=== PATIENT | female | born 1935 | race Caucasian/White ===

== ENCOUNTER → 2017-01-01 | Outpatient (CLI) | payer OTHER ==
--- NOTE | 2017-01-02 08:10 | MAMMOGRAPHY REPORT ---
BILATERAL DIGITAL SCREENING MAMMOGRAM WITH CAD: 01/01/2017 CLINICAL HISTORY: Routine screening. Patient has no complaints. TECHNIQUE: Bilateral CC and MLO views were obtained. Current study was also evaluated with a Compute r Aided Detection (CAD) system. COMPARISON: Comparison is made to exams dated: 12/23/2014 mammogram, 12/27/2015 mammogram, 12/21/2013 ma mmogram, 12/18/2012 mammogram, 12/18/2011 mammogram, and 12/14/2010 mammogram - [facility] BREAST COMPOSITION: The tissue of both breasts is heterogeneously dense, which may obscure small mas ses. FINDINGS: There is a stable intramammary lymph node in the upper outer posterior left breast. Mild v ascular calcifications bilaterally. No suspicious mass, architectural distortion or cluster of micro calcifications is seen. IMPRESSION: ACR BI-RADS CATEGORY 1: NEGATIVE There is no mammographic evidence of malignancy. A 1 year screening mammogram is recommended. The pa tient will receive written notification of the results. Approximately 10% of breast cancers are not detected with mammography. A negative mammographic report should not delay biopsy if a clinically suggestive mass is present. Briseyda Smith M.D. ay/:01/01/2017 15:11:00 Piped Pocket Machine Operator: Ladan NUÑEZR, M, [facility] letter sent: Normal 1/2 BI-RADS Code: ACR BI-RADS Category 1: Negative
== END | disposition home or self-care (01) ==
LOC: C.MAMM 09:46
PROVIDERS: ATTEND Family Medicine
DX: Z12.31 Encounter for screening mammogram for malignant neoplasm of breast (principal)

== ENCOUNTER → 2017-07-25 | Day surgery (SDC) | payer OTHER ==
[2017-06-27 11:27] VITALS: Ht 154.9 cm; Wt 55.5 kg
[~2017-07-25] VITALS: Ht 154.9 cm; Wt 55.5 kg
[~2017-07-25] MED LIST: 500ML BSS 0.3ML EPI 1:1000PF IRRIG ONE; ACETAMINOPHEN 325 MG TAB PO PRN; ADVIN50/60 INH; AMVISC PLUS 0.8ML SYRINGE INT OCU ONE; ASPCH81X PO; ATROPINE SULFATE 0.1 MG/ML 5ML SYR IV PRN; BSS FLUSH ONE; CRDCD/180 PO; ESCI1TAB10 PO; EpHEDrine SULFATE INJ 50 MG/ML AMP IV PRN; EpINEphrine INJ 1MG/ML AMP 1 MG/ML AMP ONE; FLUT50SP45 NAE; LACTATED RINGER'S 1000ML 500 ML IV SCH; LATA0.5S OPB; LEVO-14 PO; LIDOCAINE 3.5% OPH GEL PER APPLICATION CHARGE ONE; LIDOCAINE HCL 1% MPF 2 ML VIAL ONE; LISI-1116 PO; MIDAZOLAM HCL 1 MG/ML 2ML VIAL ONE; OCUCOAT 1 ML SOLN IO ONE; POVIDONE-IODINE OP SOLN 30 ML BTL ONE; PROPARACAINE 0.5% OP SOLN PER DROP CHARGE OPL SCH; RANI150T85 PO; ROSU20TA PO; TMPOPS15 OPB; TOBRAMYCIN/DEXAMETHASONE OPH OINT PER APPLN CHARGE ONE; VNTHFA/IN INH
[2017-07-25] MEDS: PHENYLEPHRINE HCL 2.5% OP SOLN PER DROP CHARGE OPL SCH ×2 (08:53→08:58)
[2017-07-25] MEDS: TROPICAMIDE 1% OP SOLN PER DROP CHARGE OPL SCH ×2 (08:54→08:59)
[2017-07-25] MEDS: CYCLOPENTOLATE HCL 1% OP SOLN PER DROP CHARGE OPL SCH ×2 (08:55→09:00)
[2017-07-25] MEDS: KETOROLAC 0.5% OP SOLN PER DROP CHARGE OPL SCH ×2 (08:56→09:01)
[2017-07-25] MEDS: GATIFLOXACIN OP SOLN PER DROP CHARGE OPL SCH ×2 (08:57→09:07)
--- NOTE | 2017-07-25 09:23 | History & Physical Bridge - SC ---
H&P Re-Evaluation Bridge Note: I have examined the patient, reviewed the History & Physical and in the interval since the performance of the History & Physical I have noted the following changes of clinical significance: No changes noted
--- NOTE | 2017-07-25 10:11 | [facility] Operative Report ---
Operative Report Date of Service Jul 25, 2017. Operative Report 1. PREOPERATIVE DIAGNOSIS: Cataract of the left eye. 2. POSTOPERATIVE DIAGNOSIS: Same. 3. PROCEDURE: Phacoemulsification with intraocular lens implantation of the left eye. SURGEON: Dr. Bud Davidson. ANESTHESIA: Topical Lidocaine gel, 1% Non- Preserved intracameral Lidocaine, and monitored intravenous sedation. INDICATIONS FOR THE PROCEDURE: The patient is a 81 - year-old female with a history of cataract of the left eye causing significant visual impairment. The details of the proposed procedure were explained to the patient who asked appropriate questions and following discussion of all risks, benefits and alternatives agreed to have the procedure done. 4. OPERATION AND FINDINGS: DESCRIPTION OF PROCEDURE: After informed consent was obtained, the patient was brought to the Operating Room at the [facility]. The patient was placed in a supine position and then the left eye was prepped and draped in the usual sterile fashion for intraocular surgery. A drop of topical Lidocaine gel was placed in the operative eye. A wire lid speculum was then placed in the fornices. A corneal paracentesis was then created temporally. The Non-Preserved Lidocaine was then instilled into the anterior chamber. The anterior chamber was then pressurized with viscoelastic. A 2.0 mm clear corneal incision was then created temporally. A cystotome was inserted into the anterior chamber and used to create a tear in the anterior lens capsule. This capsular tear was then used to create a small flap and the flap was dragged in a counterclockwise direction in order to create a continuous curvilinear capsulorrhexis. Hydrodissection was accomplished with balanced salt solution. Phacoemulsification of the lens nucleus was then performed in a standard [id number] technique. The phaco time was 18 seconds with an average power of 13 %. The remaining cortical material was removed using irrigation aspiration. The capsular bag was then filled with viscoelastic. A B[employer]ch [employer] Lomb MI60L +23.0 diopters lens was then loaded into the injector and injected into the capsular bag. The remaining viscoelastic was removed with the irrigation aspiration handpiece. The wound was hydrated and then checked and found to be watertight. The intraocular pressure was checked and found to be adequate. The wire lid speculum was removed and the patient's face was cleaned and dried. TobraDex ointment was placed in the inferior fornix. The patient was discharged to the Recovery Room having tolerated the procedure well. There were no complications. The patient will be seen tomorrow in the office for follow-up. I attest to the content of the Intraoperative Record and any orders documented therein. Any exceptions are noted below.
--- NOTE | 2017-07-25 10:12 | Discharge Instructions-SurgCtr ---
Discharge Instructions Date of Service Jul 25, 2017. Visit Reason for Visit: Cataract Left Eye Discharge Discharge Diagnosis / Problem: cataract Discharge Goals Goal(s): Improve function Activity Recommendations Activity Limitations: per Instructions/Follow-up section Anesthesia . Post Anesthesia Instructions: If you have had General Anesthesia or IV Sedation: * Do not drive today. * Resume driving when surgeon permits. * Do not make important decisions or sign legal documents today. * Call surgeon for: 1. Temperature elevations greater than 101 degrees F. 2. Uncontrollable pain. 3. Excessive bleeding. 4. Persistent nausea and vomiting. 5. Medication intolerance (nausea, vomiting or rash). * For nausea and vomiting use only clear liquids such as: tea, soda, bouillon until nausea subsides, then gradually increase diet as tolerated. * If you have any concerns or questions, call your surgeon's office. If physician is unavailable and it is an emergency, call 911 or go to the nearest emergency room. . Diet Recommendations Home Diet: resume previous diet Procedures Procedures Performed: Left Cataract Phacoemulsification With Intraocular Lens Implant Pending Studies Studies pending at discharge: no Medical Emergencies . Who to Call and When: Medical Emergencies: If at any time you feel your situation is an emergency, please call 911 immediately. . Non-Emergent Contact Non-Emergency issues call your: Pleating Supervisor . . "Provider Documentation" section prepared by Bud Davidson. .
[2017-07-25 10:13] VITALS: TEMP 36.4
--- NOTE | 2017-07-25 10:28 | Anesthesiology Progress Note ---
Anesthesia Post Op Note Date & Time Jul 25, 2017 at 10:28 Vital Signs Pain Intensity: 0 Vital Signs Past 12 Hours Date Time Temp Pulse Resp B/P (MAP) Pulse Ox O2 Delivery O2 Flow Rate FiO2 07/25/17 10:13 36.4 65 12 115/62 (79) 98 Room Air 07/25/17 08:47 36.7 64 20 145/69 (94) 98 Room Air Notes Mental Status: alert / awake / arousable, participated in evaluation Nausea / Vomiting: adequately controlled Pain: adequately controlled Airway Patency, RR, SpO2: stable & adequate BP & HR: stable & adequate Hydration State: stable & adequate Anesthetic Complications: no major complications apparent
[2017-07-25 10:33] VITALS: BP 112/68; PULSE 61; O2SAT 100
== END | disposition home or self-care (01) ==
LOC: X.SURG 07:52
PROVIDERS: ATTEND Ophthalmology
DX: H26.9 Unspecified cataract (principal); J45.909 Unspecified asthma, uncomplicated; I25.10 Atherosclerotic heart disease of native coronary artery without angina pectoris; E78.5 Hyperlipidemia, unspecified; K21.9 Gastro-esophageal reflux disease without esophagitis; I48.0 Paroxysmal atrial fibrillation; M26.622 Arthralgia of left temporomandibular joint; J44.9 Chronic obstructive pulmonary disease, unspecified; F33.42 Major depressive disorder, recurrent, in full remission; I10 Essential (primary) hypertension; Z79.899 Other long term (current) drug therapy; Z79.82 Long term (current) use of aspirin; Z87.11 Personal history of peptic ulcer disease

== ENCOUNTER → 2017-08-22 | Day surgery (SDC) | payer OTHER ==
[2017-08-06 11:01] VITALS: Ht 154.9 cm; Wt 55.5 kg
[~2017-08-22] VITALS: Ht 154.9 cm; Wt 55.5 kg
[~2017-08-22] MED LIST changes: +CITRIC ACID/SODIUM CITRATE 15 ML UDC ONE; +CITRIC ACID/SODIUM CITRATE 15 ML UDC PO SCH; -EpHEDrine SULFATE INJ 50 MG/ML AMP IV PRN; -PROPARACAINE 0.5% OP SOLN PER DROP CHARGE OPL SCH; +PROPARACAINE 0.5% OP SOLN PER DROP CHARGE OPR SCH; +RANITIDINE HCL 25 MG/ML INJ ONE; +RANITIDINE HCL 50 MG/100 ML D5W IV SCH
[2017-08-22] MEDS: PHENYLEPHRINE HCL 2.5% OP SOLN PER DROP CHARGE OPR SCH ×2 (08:38→08:43)
[2017-08-22] MEDS: TROPICAMIDE 1% OP SOLN PER DROP CHARGE OPR SCH ×2 (08:39→08:44)
[2017-08-22] MEDS: CYCLOPENTOLATE HCL 1% OP SOLN PER DROP CHARGE OPR SCH ×2 (08:40→08:45)
[2017-08-22] MEDS: KETOROLAC 0.5% OP SOLN PER DROP CHARGE OPR SCH ×2 (08:41→08:46)
[2017-08-22] MEDS: GATIFLOXACIN OP SOLN PER DROP CHARGE OPR SCH ×2 (08:42→08:52)
--- NOTE | 2017-08-22 09:03 | History & Physical Bridge - SC ---
H&P Re-Evaluation Bridge Note: I have examined the patient, reviewed the History & Physical and in the interval since the performance of the History & Physical I have noted the following changes of clinical significance: Diagnosis: Right Cataract Procedure: Right Cataract Removal with Lens Implant No changes noted
--- NOTE | 2017-08-22 09:48 | [facility] Operative Report ---
Operative Report Date of Service August 22, 2017. Operative Report 1. PREOPERATIVE DIAGNOSIS: Cataract of the right eye. 2. POSTOPERATIVE DIAGNOSIS: Same. 3. PROCEDURE: Phacoemulsification with intraocular lens implantation of the right eye. SURGEON: Dr. Bud Davidson. ANESTHESIA: Topical Lidocaine gel, 1% Non- Preserved intracameral Lidocaine, and monitored intravenous sedation. INDICATIONS FOR THE PROCEDURE: The patient is a 81 - year-old female with a history of cataract of the right eye causing significant visual impairment. The details of the proposed procedure were explained to the patient who asked appropriate questions and following discussion of all risks, benefits and alternatives agreed to have the procedure done. 4. OPERATION AND FINDINGS: DESCRIPTION OF PROCEDURE: After informed consent was obtained, the patient was brought to the Operating Room at the [facility]. The patient was placed in a supine position and then the right eye was prepped and draped in the usual sterile fashion for intraocular surgery. A drop of topical Lidocaine gel was placed in the operative eye. A wire lid speculum was then placed in the fornices. A corneal paracentesis was then created temporally. The Non-Preserved Lidocaine was then instilled into the anterior chamber. The anterior chamber was then pressurized with viscoelastic. A 2.0 mm clear corneal incision was then created temporally. A cystotome was inserted into the anterior chamber and used to create a tear in the anterior lens capsule. This capsular tear was then used to create a small flap and the flap was dragged in a counterclockwise direction in order to create a continuous curvilinear capsulorrhexis. Hydrodissection was accomplished with balanced salt solution. Phacoemulsification of the lens nucleus was then performed in a standard [id number] technique. The phaco time was 22 seconds with an average power of 14 %. The remaining cortical material was removed using irrigation aspiration. The capsular bag was then filled with viscoelastic. A Bausch & Lomb MI60L +25.0 diopters lens was then loaded into the injector and injected into the capsular bag. The remaining viscoelastic was removed with the irrigation aspiration handpiece. The wound was hydrated and then checked and found to be watertight. The intraocular pressure was checked and found to be adequate. The wire lid speculum was removed and the patient's face was cleaned and dried. TobraDex ointment was placed in the inferior fornix. The patient was discharged to the Recovery Room having tolerated the procedure well. There were no complications. The patient will be seen tomorrow in the office for follow-up. I attest to the content of the Intraoperative Record and any orders documented therein. Any exceptions are noted below.
--- NOTE | 2017-08-22 09:50 | Discharge Instructions-SurgCtr ---
Discharge Instructions Date of Service August 22, 2017. Visit Reason for Visit: Cataract Right Eye Discharge Discharge Diagnosis / Problem: cataract Discharge Goals Goal(s): Improve function Activity Recommendations Activity Limitations: per Instructions/Follow-up section Anesthesia . Post Anesthesia Instructions: If you have had General Anesthesia or IV Sedation: * Do not drive today. * Resume driving when surgeon permits. * Do not make important decisions or sign legal documents today. * Call surgeon for: 1. Temperature elevations greater than 101 degrees F. 2. Uncontrollable pain. 3. Excessive bleeding. 4. Persistent nausea and vomiting. 5. Medication intolerance (nausea, vomiting or rash). * For nausea and vomiting use only clear liquids such as: tea, soda, bouillon until nausea subsides, then gradually increase diet as tolerated. * If you have any concerns or questions, call your surgeon's office. If physician is unavailable and it is an emergency, call 911 or go to the nearest emergency room. . Diet Recommendations Home Diet: resume previous diet Procedures Procedures Performed: Right Cataract Phacoemulsification With Intraocular Lens Implant Pending Studies Studies pending at discharge: no Medical Emergencies . Who to Call and When: Medical Emergencies: If at any time you feel your situation is an emergency, please call 911 immediately. . Non-Emergent Contact Non-Emergency issues call your: Web Merchant . . "Provider Documentation" section prepared by Bud Davidson. .
[2017-08-22 10:23] VITALS: BP 96/58; PULSE 58; O2SAT 97
--- NOTE | 2017-08-22 10:29 | Anesthesia Progress Nt - [facility] ---
Anesthesia Post Op Note Date & Time August 22, 2017 at 10:29 Vital Signs Pain Intensity: 0 Vital Signs Past 12 Hours Date Time Temp Pulse Resp B/P (MAP) Pulse Ox O2 Delivery O2 Flow Rate FiO2 08/22/17 10:23 58 16 96/58 (71) 97 Room Air 08/22/17 09:52 36.5 56 16 97/60 (72) 98 Room Air 08/22/17 08:31 36.6 57 16 105/63 (77) 98 Room Air Notes Mental Status: alert / awake / arousable, participated in evaluation Pt Amnestic to Procedure: Yes Nausea / Vomiting: adequately controlled Pain: adequately controlled Airway Patency, RR, SpO2: stable & adequate BP & HR: stable & adequate Hydration State: stable & adequate Anesthetic Complications: no major complications apparent
== END | disposition home or self-care (01) ==
LOC: X.SURG 08:00
PROVIDERS: ATTEND Ophthalmology
DX: H26.9 Unspecified cataract (principal); I10 Essential (primary) hypertension; I48.91 Unspecified atrial fibrillation; K21.9 Gastro-esophageal reflux disease without esophagitis; J45.909 Unspecified asthma, uncomplicated; E78.5 Hyperlipidemia, unspecified; I25.10 Atherosclerotic heart disease of native coronary artery without angina pectoris

== ENCOUNTER 2025-03-21 07:45 | Inpatient (IN) ==
--- NOTE | 2025-03-21 08:07 | XRay Report ---
XR chest 1V portable HISTORY: 89 years-old Female Sepsis acute sepsis COMPARISON: None TECHNIQUE: AP view of the chest FINDINGS: Cardiac silhouette is mildly enlarged. No pneumothorax, pleural effusion or overt pulmonary edema. Mi ld linear subsegmental left basilar atelectasis. Calcified granuloma at the lateral left midlung. Bon es of the chest appear grossly intact. IMPRESSION: No acute process. ACT 112: Negative or not required by law. The above report was generated using voice recognition software. It may contain grammatical, syntax o r spelling errors. Electronically signed by: Néstor Seo M.D. 03/21/2025 8:05 AM
[2025-03-21 08:17] LABS: Hematocrit (blood only) 37.8 % (37.0-47.0); Hemoglobin 12.8 g/dL (12.0-16.0); Mean Corpuscular Hemoglobin 28.6 pg (25.0-34.0); Mean Corpuscular Volume 84.4 fL (80.0-100.0); Platelet Count 171 K/uL (130-400); RDW Standard Deviation 47.0 fL (36.4-46.3); Red Blood Count 4.48 M/uL (4.20-5.40); White Blood Count 13.39 K/ul (4.8-10.8)
[2025-03-21] MEDS: SODIUM CHLORIDE 0.9% 1,000 ML IV ONE ×3 (08:17→10:20)
[2025-03-21] MEDS: ACETAMINOPHEN 1,000 MG/100 ML VIAL IV STA (08:17)
[2025-03-21 08:39] LABS: Appearance Urine Clear (Clear); Bacteria Urine Automated 4+ (None Seen); Cast Urine Automated 0-2 /lpf (0-2); Epithelial Cell Urine Auto 0-2 /hpf (0-2); Glucose Urine UA Negative (Negative); WBC Urine Automated 0-5 /hpf (0-5)
[2025-03-21 08:44] LABS: INR 1.1 (0.9-1.1); Prothrombin Time 11.4 Seconds (9.0-12.0)
[2025-03-21] MEDS: OPTIRAY 320 100ml IV ONE (08:46)
[2025-03-21 08:47] LABS: Alanine Aminotransferase 10 U/L (7-52); Albumin Level 4.1 gm/dl (3.4-5.0); Alkaline Phosphatase 63 U/L (34-104); Anion Gap 10 (3-11); Bilirubin,Total 1.0 mg/dl (0.2-1.0); Blood Urea Nitrogen 27 mg/dl (6-23); Calcium 9.0 mg/dl (8.6-10.3); Carbon Dioxide 20 mmol/L (21-32); Chloride 104 mmol/L (98-107); Glucose 115 mg/dl (70-99(Fasting)); Lipase 14 U/L (11-82); Magnesium 1.8 mg/dl (1.7-2.4); Potassium 4.4 mmol/L (3.5-5.1); Sodium 134 mmol/L (136-145); Total Protein 7.8 gm/dl (6.0-8.3)
[2025-03-21] MEDS: cefTRIAXone SODIUM 2,000 MG/50 ML BAG IV STA (08:53)
[2025-03-21 09:02] LABS: Base Excess VBG -5.0 mEq/L; HCO3 VBG 19 mmol/L; Oxygen Saturation VBG < 60.0 %; PCO2 VBG 30 mmHg (38-50); PO2 VBG 35 mmHg; pH VBG 7.40 (7.36-7.41)
[2025-03-21 09:14] LABS: Chlamydia pneumoniae PCR Not Detected (NotDetected); Coronavirus 229E PCR Not Detected (NotDetected); Coronavirus CoV-2 (COVID19)PCR Not Detected (NotDetected); Coronavirus HKU1 PCR Not Detected (NotDetected); Coronavirus NL63 PCR Not Detected (NotDetected); Coronavirus OC43PCR Not Detected (NotDetected); Human Metapneumovirus PCR Not Detected (NotDetected); Parainfluenza Virus 1 PCR Not Detected (NotDetected); Parainfluenza Virus 2 PCR Not Detected (NotDetected); Parainfluenza Virus 3 PCR Not Detected (NotDetected); Parainfluenza Virus 4 PCR Not Detected (NotDetected); Respiratory Syncytial VirusPCR Not Detected (NotDetected); Rhinovirus/Enterovirus PCR Not Detected (NotDetected)
[2025-03-21] MEDS: OPTIRAY 320 125ml IV ONE (09:20)
--- NOTE | 2025-03-21 09:34 | CT Scan Report ---
CT head/brain wo con CLINICAL HISTORY: 89 years-old Female with ams. Acutely altered mental status TECHNIQUE: Multiple axial CT images of the head were obtained without contrast. A dose lowering tech nique was utilized adhering to the principles of ALARA. COMPARISON: None. FINDINGS: No acute intracranial hemorrhage, midline shift, intracranial mass, hydrocephalus, territorial ischem ia or abnormal extra-axial collection. Involutional changes with white matter hypodensities suggestiv e of chronic microvascular ischemic disease. Moderate ventriculomegaly, likely on an ex vacuo basis. Cerebral vascular calcifications. The calvarium is intact. Mild mucosal thickening of the ethmoid air cells. Mastoid air cells are arun ar. IMPRESSION: No acute intracranial abnormality. ACT 112: Negative or not required by law. The above report was generated using voice recognition software. It may contain grammatical, syntax o r spelling errors. Electronically signed by: Néstor Seo M.D. 03/21/2025 9:32 AM
--- NOTE | 2025-03-21 09:39 | CT Scan Report ---
ABDOMEN AND PELVIS CT WITH IV CONTRAST CT DOSE: 1495.71 mGy.cm HISTORY: Acute nausea and vomiting vomitting TECHNIQUE: Multiaxial CT images of the abdomen and pelvis were performed following the IV administrat ion of 94 cc of Optiray, A dose lowering technique was utilized adhering to the principles of ALARA. COMPARISON STUDY: CTA chest of same day FINDINGS: Chest CT dictated separately. Coronary artery calcifications are noted. Right basilar mucou s plugging with mild bibasilar atelectasis. No pneumatosis or pneumoperitoneum. Calcified granulomata of the spleen. Unremarkable adrenal glands, gallbladder and liver with patency of the hepatic and po rtal veins. There are a few scattered hypodense foci of the pancreas measuring up to 9 mm, likely sha e branch IPMN's. Subcentimeter hypodensities of the left kidney, likely cysts. No hydronephrosis. Unremarkable urinary bladder with mild wall thickening. Indeterminate cystic left adnexal lesion measuring 1.9 cm, favore d to be benign. Atherosclerosis of the aorta without aneurysm. Right inguinal chain lymph nodes measu re up to 9 mm with mild adjacent inflammatory stranding. Fluid-filled distal esophagus. Small hiatal hernia. There is no bowel obstruction or bowel wall thickening. There is mild to moderate colonic fec al retention. Scattered small bowel air-fluid levels with loops measuring up to 2.2 cm. Normal append ix. Degenerative changes of the spine. Lumbar levoscoliosis. No acute fracture identified. IMPRESSION: 1. No bowel obstruction or pneumoperitoneum. 2. Scattered small bowel air-fluid levels may represent an enteritis or ileus. 3. Small hiatal hernia. 4. Incidental findings as above. ACT 112: Negative or not required by law. The above report was generated using voice recognition software. It may contain grammatical, syntax o r spelling errors. Electronically signed by: Néstor Seo M.D. 03/21/2025 9:36 AM
[2025-03-21 09:41] LABS: Immature Granulocytes # (auto) 0.15 K/uL (0.01-0.20); Immature Granulocytes % (auto) 1.1 %; Ovalocytes 1+
--- NOTE | 2025-03-21 09:48 | CT Scan Report ---
CT angio chest PE protocol CT DOSE: 742.55 mGy.cm HISTORY: 89 years-old Female with ro PE. Acute shortness of breath with sepsis TECHNIQUE: Multiple CTA images of the chest were obtained after the intravenous administration of 80 ml Optiray. Coronal and sagittal MIPS were obtained from the axial data set and were submitted for Munch a Bunchiew. All measurements were obtained according to NASCET criteria. A dose lowering technique was ut ilized adhering to the principles of ALARA. COMPARISON: CT abdomen and pelvis of same day FINDINGS: CTA: The heart is upper limits of normal in size. No pericardial effusion. Mild coronary artery calcificat ions. Atherosclerosis of the thoracic aorta. There is at least 50% stenosis at the origin of the left subclavian artery secondary to atherosclerotic plaque. No pulmonary emboli are identified, however t he study is limited secondary to respiratory motion. CT CHEST: No thyroid nodule. Calcified mediastinal lymph nodes are suggestive of prior cranial disease. Noncalc ified lymph nodes within the mediastinum and isabel measure up to 9 mm. No pneumothorax or pleural effu karrie. Mild intralobular septal thickening. There are a few scattered calcified pulmonary granulomata. Linear areas of bibasilar consolidation noted in conjunction with bronchial wall thickening and mild right basilar predominant mucous plugging. 3 mm subpleural low suspicion solid nodule left upper lob e, image 104. CT abdomen the dictated separately. Multilevel degenerative changes of the spine and sh oulders. No acute fracture identified. IMPRESSION: 1. No pulmonary emboli identified. 2. Mild mucous plugging with bibasilar opacities suggestive of atelectasis. 3. Prior granulomatous disease. ACT 112: Negative or not required by law. The above report was generated using voice recognition software. It may contain grammatical, syntax o r spelling errors. Electronically signed by: Néstor Seo M.D. 03/21/2025 9:46 AM
[2025-03-21] MEDS ORDERED: VANCOMYCIN CONSULT ACTIVE PRN (10:06)
--- NOTE | 2025-03-21 10:17 | Emergency Department Note ---
History of Present Illness General Chief complaint: Fever Stated complaint: LETHARGIC, NAUSEA, VOMITING, FEVER Time Seen by Provider: 03/21/25 07:59 History of Present Illness Provider complaint: Altered mental status vomiting fever 89-year-old female presents emergency department from [facility] for fever altered mental status nausea vomiting. Patient has dementia and is unable to give history. Home Medications Medication Instructions Recorded Confirmed Type alendronate 70 mg tablet 70 mg PO WK 10/31/22 03/21/25 History diltiazem HCl 180 mg capsule,24 180 mg PO QAM 10/31/22 03/21/25 History hr,extended release dorzolamide 22.3 mg-timolol 6.8 1 drp ophthalmic (eye) BID 10/31/22 03/21/25 History mg/mL eye drops fluoxetine 40 mg capsule 60 mg PO QAM 10/31/22 03/21/25 History lisinopril 2.5 mg tablet 2.5 mg PO QAM 10/31/22 03/21/25 History rosuvastatin 20 mg tablet 20 mg PO QPM 10/31/22 03/21/25 History travoprost 0.004 % eye drops 1 drp ophthalmic (eye) BID 10/31/22 03/21/25 History acetaminophen 325 mg tablet 650 mg PO Q4H PRN pain/temp 03/21/25 03/21/25 History (Tylenol) fluocinonide 0.05 % topical cream 1 applic topical BID PRN skin 03/21/25 03/21/25 History issues latanoprostene bunod 0.024 % eye 1 drp OPB HS 03/21/25 03/21/25 History drops (Vyzulta) mineral oil-hydrophil petrolat 1 applic topical BID 03/21/25 03/21/25 History topical ointment mirtazapine 15 mg tablet 15 mg PO HS 03/21/25 03/21/25 History naproxen 250 mg tablet 250 mg PO BID PRN Inflammation 03/21/25 03/21/25 History silver chloride 1 ea topical DAILY 03/21/25 03/21/25 History Allergies Allergy/AdvReac Type Severity Reaction Status Date / Time No Known Drug Allergies Allergy Unknown . Verified 10/31/22 09:06 Past Med/Surg History Problem List (Updated 03/21/25 @ 12:21 by Background Daemon) Hypoxia (Acute) Acute UTI (Acute) Cellulitis (Acute) Sepsis (Acute) Medical History (Updated 03/21/25 @ 12:21 by Background Daemon) History of kidney stones Osteoporosis Osteoarthritis GERD (gastroesophageal reflux disease) Glaucoma Depression Poor historian HLD (hyperlipidemia) HTN (hypertension) Irregular heart rhythm Follows with Dr. Rasheed COPD (chronic obstructive pulmonary disease) Surgical History History of cataract surgery History of cystoscopy with stone extraction History of colonoscopy History of cardiac radiofrequency ablation Social History Smoking Status: Unknown if ever smoked Second Hand Exposure: Yes (hx); Do You Dip or Chew Tobacco: No; Hx Alcohol Use: No Hx Substance Use: No Preferred Language: Mexican Communication Ability: Effective Conductor Sleeping Car Required: No Beliefs That Will Affect Care: None Current Living Situation: Alone Feels Safe at Home: Yes Assistive Devices: Cane and Glasses Physical Exam Vital Signs Vital Signs - 24 hr 03/21/25 07:54 03/21/25 07:55 03/21/25 08:45 Temperature 39.2 C H Temperature Source Oral Pulse Rate 125 H Pulse Rate from SpO2 Sensor Pulse Rhythm Irregular Respiratory Rate 24 Respiratory Effort / Characteristics Non-Labored Spontaneous Respiratory Depth Shallow Blood Pressure 119/82 107/58 L Blood Pressure Mean 94 67 Pulse Oximetry 91 Oxygen Delivery Method Room Air Room Air Oxygen Flow Rate Sepsis Recent Fever Within 48 Hours Yes Sepsis New/Unexplained Change in Mental Status Yes Sepsis Action Taken by Nursing Physician Notified 03/21/25 08:51 03/21/25 08:52 03/21/25 09:00 Temperature Temperature Source Pulse Rate 121 H 121 H Pulse Rate from SpO2 Sensor 117 H Pulse Rhythm Respiratory Rate 26 H Respiratory Effort / Characteristics Respiratory Depth Blood Pressure 91/54 L Blood Pressure Mean 70 Pulse Oximetry 97 Oxygen Delivery Method Nasal Cannula Oxygen Flow Rate 2 Sepsis Recent Fever Within 48 Hours Sepsis New/Unexplained Change in Mental Status Sepsis Action Taken by Nursing 03/21/25 09:00 03/21/25 09:00 03/21/25 09:00 Temperature Temperature Source Pulse Rate Pulse Rate from SpO2 Sensor Pulse Rhythm Respiratory Rate Respiratory Effort / Characteristics Respiratory Depth Blood Pressure 91/54 L 91/54 L 91/54 L Blood Pressure Mean 70 70 70 Pulse Oximetry Oxygen Delivery Method Oxygen Flow Rate Sepsis Recent Fever Within 48 Hours Sepsis New/Unexplained Change in Mental Status Sepsis Action Taken by Nursing 03/21/25 09:00 03/21/25 09:00 03/21/25 09:18 Temperature Temperature Source Pulse Rate 117 H 113 H Pulse Rate from SpO2 Sensor 119 H 117 H Pulse Rhythm Respiratory Rate 26 H 24 Respiratory Effort / Characteristics Respiratory Depth Blood Pressure 91/54 L Blood Pressure Mean 70 Pulse Oximetry 98 96 Oxygen Delivery Method Oxygen Flow Rate Sepsis Recent Fever Within 48 Hours Sepsis New/Unexplained Change in Mental Status Sepsis Action Taken by Nursing 03/21/25 09:19 03/21/25 09:19 03/21/25 09:19 Temperature Temperature Source Pulse Rate Pulse Rate from SpO2 Sensor Pulse Rhythm Respiratory Rate Respiratory Effort / Characteristics Respiratory Depth Blood Pressure 78/54 L 78/54 L 74/56 L Blood Pressure Mean 61 61 64 Pulse Oximetry Oxygen Delivery Method Oxygen Flow Rate Sepsis Recent Fever Within 48 Hours Sepsis New/Unexplained Change in Mental Status Sepsis Action Taken by Nursing 03/21/25 09:21 03/21/25 09:21 03/21/25 09:21 Temperature Temperature Source Pulse Rate 119 H Pulse Rate from SpO2 Sensor 121 H Pulse Rhythm Respiratory Rate 19 Respiratory Effort / Characteristics Respiratory Depth Blood Pressure 74/52 L 74/52 L Blood Pressure Mean 55 55 Pulse Oximetry 96 Oxygen Delivery Method Oxygen Flow Rate Sepsis Recent Fever Within 48 Hours Sepsis New/Unexplained Change in Mental Status Sepsis Action Taken by Nursing 03/21/25 09:21 03/21/25 09:30 03/21/25 09:30 Temperature 37.2 C Temperature Source Oral Pulse Rate Pulse Rate from SpO2 Sensor Pulse Rhythm Respiratory Rate Respiratory Effort / Characteristics Respiratory Depth Blood Pressure 74/52 L 89/57 L Blood Pressure Mean 55 61 Pulse Oximetry Oxygen Delivery Method Oxygen Flow Rate Sepsis Recent Fever Within 48 Hours Sepsis New/Unexplained Change in Mental Status Sepsis Action Taken by Nursing 03/21/25 09:30 03/21/25 09:30 03/21/25 09:30 Temperature Temperature Source Pulse Rate Pulse Rate from SpO2 Sensor Pulse Rhythm Respiratory Rate Respiratory Effort / Characteristics Respiratory Depth Blood Pressure 89/57 L 89/57 L 89/57 L Blood Pressure Mean 61 61 61 Pulse Oximetry Oxygen Delivery Method Oxygen Flow Rate Sepsis Recent Fever Within 48 Hours Sepsis New/Unexplained Change in Mental Status Sepsis Action Taken by Nursing 03/21/25 09:30 03/21/25 09:30 03/21/25 09:42 Temperature Temperature Source Pulse Rate 114 H 118 H Pulse Rate from SpO2 Sensor 118 H 118 H Pulse Rhythm Respiratory Rate 27 H 22 Respiratory Effort / Characteristics Respiratory Depth Blood Pressure 89/57 L Blood Pressure Mean 61 Pulse Oximetry 97 97 Oxygen Delivery Method Oxygen Flow Rate Sepsis Recent Fever Within 48 Hours Sepsis New/Unexplained Change in Mental Status Sepsis Action Taken by Nursing 03/21/25 09:43 03/21/25 09:43 03/21/25 09:43 Temperature Temperature Source Pulse Rate Pulse Rate from SpO2 Sensor Pulse Rhythm Respiratory Rate Respiratory Effort / Characteristics Respiratory Depth Blood Pressure 93/52 L 93/52 L 93/52 L Blood Pressure Mean 67 67 67 Pulse Oximetry Oxygen Delivery Method Oxygen Flow Rate Sepsis Recent Fever Within 48 Hours Sepsis New/Unexplained Change in Mental Status Sepsis Action Taken by Nursing 03/21/25 09:43 03/21/25 09:45 03/21/25 09:46 Temperature Temperature Source Pulse Rate 117 H Pulse Rate from SpO2 Sensor 117 H Pulse Rhythm Respiratory Rate 23 Respiratory Effort / Characteristics Respiratory Depth Blood Pressure 93/52 L 87/57 L Blood Pressure Mean 67 64 Pulse Oximetry 97 Oxygen Delivery Method Oxygen Flow Rate Sepsis Recent Fever Within 48 Hours Sepsis New/Unexplained Change in Mental Status Sepsis Action Taken by Nursing 03/21/25 09:46 03/21/25 09:46 03/21/25 09:46 Temperature Temperature Source Pulse Rate Pulse Rate from SpO2 Sensor Pulse Rhythm Respiratory Rate Respiratory Effort / Characteristics Respiratory Depth Blood Pressure 87/57 L 87/57 L 87/57 L Blood Pressure Mean 64 64 64 Pulse Oximetry Oxygen Delivery Method Oxygen Flow Rate Sepsis Recent Fever Within 48 Hours Sepsis New/Unexplained Change in Mental Status Sepsis Action Taken by Nursing 03/21/25 09:46 03/21/25 09:51 03/21/25 09:54 Temperature Temperature Source Pulse Rate 120 H 118 H Pulse Rate from SpO2 Sensor 120 H 116 H Pulse Rhythm Respiratory Rate 22 21 Respiratory Effort / Characteristics Respiratory Depth Blood Pressure 87/57 L Blood Pressure Mean 64 Pulse Oximetry 97 97 Oxygen Delivery Method Oxygen Flow Rate Sepsis Recent Fever Within 48 Hours Sepsis New/Unexplained Change in Mental Status Sepsis Action Taken by Nursing 03/21/25 09:56 03/21/25 09:57 03/21/25 09:57 Temperature Temperature Source Pulse Rate 108 H Pulse Rate from SpO2 Sensor 110 H Pulse Rhythm Respiratory Rate 24 Respiratory Effort / Characteristics Respiratory Depth Blood Pressure 80/54 L 81/49 L Blood Pressure Mean 59 62 Pulse Oximetry 97 Oxygen Delivery Method Oxygen Flow Rate Sepsis Recent Fever Within 48 Hours Sepsis New/Unexplained Change in Mental Status Sepsis Action Taken by Nursing 03/21/25 09:57 03/21/25 09:57 03/21/25 10:00 Temperature Temperature Source Pulse Rate 116 H Pulse Rate from SpO2 Sensor 113 H Pulse Rhythm Respiratory Rate 25 H Respiratory Effort / Characteristics Respiratory Depth Blood Pressure 81/49 L 81/49 L Blood Pressure Mean 62 62 Pulse Oximetry 97 Oxygen Delivery Method Nasal Cannula Oxygen Flow Rate 2 Sepsis Recent Fever Within 48 Hours Sepsis New/Unexplained Change in Mental Status Sepsis Action Taken by Nursing 03/21/25 10:00 03/21/25 10:00 03/21/25 10:00 Temperature Temperature Source Pulse Rate Pulse Rate from SpO2 Sensor Pulse Rhythm Respiratory Rate Respiratory Effort / Characteristics Respiratory Depth Blood Pressure 85/49 L 85/49 L 85/49 L Blood Pressure Mean 60 60 60 Pulse Oximetry Oxygen Delivery Method Oxygen Flow Rate Sepsis Recent Fever Within 48 Hours Sepsis New/Unexplained Change in Mental Status Sepsis Action Taken by Nursing 03/21/25 10:00 03/21/25 10:00 03/21/25 10:12 Temperature Temperature Source Pulse Rate 124 H Pulse Rate from SpO2 Sensor 117 H Pulse Rhythm Respiratory Rate 24 Respiratory Effort / Characteristics Respiratory Depth Blood Pressure 85/49 L 85/49 L Blood Pressure Mean 60 60 Pulse Oximetry 97 Oxygen Delivery Method Oxygen Flow Rate Sepsis Recent Fever Within 48 Hours Sepsis New/Unexplained Change in Mental Status Sepsis Action Taken by Nursing 03/21/25 10:15 03/21/25 10:15 03/21/25 10:15 Temperature Temperature Source Pulse Rate Pulse Rate from SpO2 Sensor Pulse Rhythm Respiratory Rate Respiratory Effort / Characteristics Respiratory Depth Blood Pressure 92/57 L 92/57 L 92/57 L Blood Pressure Mean 62 62 62 Pulse Oximetry Oxygen Delivery Method Oxygen Flow Rate Sepsis Recent Fever Within 48 Hours Sepsis New/Unexplained Change in Mental Status Sepsis Action Taken by Nursing 03/21/25 10:15 03/21/25 10:15 03/21/25 10:15 Temperature Temperature Source Pulse Rate 107 H Pulse Rate from SpO2 Sensor 122 H Pulse Rhythm Respiratory Rate 23 Respiratory Effort / Characteristics Respiratory Depth Blood Pressure 92/57 L 92/57 L Blood Pressure Mean 62 62 Pulse Oximetry 97 Oxygen Delivery Method Oxygen Flow Rate Sepsis Recent Fever Within 48 Hours Sepsis New/Unexplained Change in Mental Status Sepsis Action Taken by Nursing 03/21/25 10:21 03/21/25 10:21 03/21/25 10:21 Temperature Temperature Source Pulse Rate 117 H Pulse Rate from SpO2 Sensor 113 H Pulse Rhythm Respiratory Rate 24 Respiratory Effort / Characteristics Respiratory Depth Blood Pressure 93/52 L 93/52 L Blood Pressure Mean 63 63 Pulse Oximetry 97 Oxygen Delivery Method Oxygen Flow Rate Sepsis Recent Fever Within 48 Hours Sepsis New/Unexplained Change in Mental Status Sepsis Action Taken by Nursing 03/21/25 10:21 03/21/25 10:21 03/21/25 10:21 Temperature Temperature Source Pulse Rate Pulse Rate from SpO2 Sensor Pulse Rhythm Respiratory Rate Respiratory Effort / Characteristics Respiratory Depth Blood Pressure 93/52 L 93/52 L 93/52 L Blood Pressure Mean 63 63 63 Pulse Oximetry Oxygen Delivery Method Oxygen Flow Rate Sepsis Recent Fever Within 48 Hours Sepsis New/Unexplained Change in Mental Status Sepsis Action Taken by Nursing 03/21/25 10:30 03/21/25 10:30 03/21/25 10:30 Temperature Temperature Source Pulse Rate Pulse Rate from SpO2 Sensor Pulse Rhythm Respiratory Rate Respiratory Effort / Characteristics Respiratory Depth Blood Pressure 105/48 L 105/48 L 105/48 L Blood Pressure Mean 68 68 68 Pulse Oximetry Oxygen Delivery Method Oxygen Flow Rate Sepsis Recent Fever Within 48 Hours Sepsis New/Unexplained Change in Mental Status Sepsis Action Taken by Nursing 03/21/25 10:30 03/21/25 10:30 03/21/25 10:30 Temperature Temperature Source Pulse Rate 115 H Pulse Rate from SpO2 Sensor 111 H Pulse Rhythm Respiratory Rate 20 Respiratory Effort / Characteristics Respiratory Depth Blood Pressure 105/48 L 105/48 L Blood Pressure Mean 68 68 Pulse Oximetry 98 Oxygen Delivery Method Nasal Cannula Oxygen Flow Rate 2 Sepsis Recent Fever Within 48 Hours Sepsis New/Unexplained Change in Mental Status Sepsis Action Taken by Nursing 03/21/25 10:42 03/21/25 10:45 03/21/25 10:45 Temperature Temperature Source Pulse Rate 108 H Pulse Rate from SpO2 Sensor 107 H Pulse Rhythm Respiratory Rate 23 Respiratory Effort / Characteristics Respiratory Depth Blood Pressure 94/61 L 94/61 L Blood Pressure Mean 64 64 Pulse Oximetry 95 Oxygen Delivery Method Oxygen Flow Rate Sepsis Recent Fever Within 48 Hours Sepsis New/Unexplained Change in Mental Status Sepsis Action Taken by Nursing 03/21/25 10:45 03/21/25 10:45 03/21/25 10:45 Temperature Temperature Source Pulse Rate Pulse Rate from SpO2 Sensor Pulse Rhythm Respiratory Rate Respiratory Effort / Characteristics Respiratory Depth Blood Pressure 94/61 L 94/61 L 94/61 L Blood Pressure Mean 64 64 64 Pulse Oximetry Oxygen Delivery Method Oxygen Flow Rate Sepsis Recent Fever Within 48 Hours Sepsis New/Unexplained Change in Mental Status Sepsis Action Taken by Nursing 03/21/25 10:45 03/21/25 10:51 03/21/25 11:00 Temperature Temperature Source Pulse Rate 116 H 117 H 122 H Pulse Rate from SpO2 Sensor 110 H 111 H 113 H Pulse Rhythm Respiratory Rate 20 21 23 Respiratory Effort / Characteristics Respiratory Depth Blood Pressure Blood Pressure Mean Pulse Oximetry 94 98 97 Oxygen Delivery Method Oxygen Flow Rate Sepsis Recent Fever Within 48 Hours Sepsis New/Unexplained Change in Mental Status Sepsis Action Taken by Nursing 03/21/25 11:00 03/21/25 11:00 03/21/25 11:00 Temperature Temperature Source Pulse Rate Pulse Rate from SpO2 Sensor Pulse Rhythm Respiratory Rate Respiratory Effort / Characteristics Respiratory Depth Blood Pressure 105/70 105/70 105/70 Blood Pressure Mean 87 87 87 Pulse Oximetry Oxygen Delivery Method Oxygen Flow Rate Sepsis Recent Fever Within 48 Hours Sepsis New/Unexplained Change in Mental Status Sepsis Action Taken by Nursing 03/21/25 11:00 03/21/25 11:00 03/21/25 11:12 Temperature Temperature Source Pulse Rate 109 H Pulse Rate from SpO2 Sensor 117 H Pulse Rhythm Respiratory Rate 24 Respiratory Effort / Characteristics Respiratory Depth Blood Pressure 105/70 105/70 Blood Pressure Mean 87 87 Pulse Oximetry 96 Oxygen Delivery Method Oxygen Flow Rate Sepsis Recent Fever Within 48 Hours Sepsis New/Unexplained Change in Mental Status Sepsis Action Taken by Nursing 03/21/25 11:15 03/21/25 11:15 03/21/25 11:15 Temperature Temperature Source Pulse Rate Pulse Rate from SpO2 Sensor Pulse Rhythm Respiratory Rate Respiratory Effort / Characteristics Respiratory Depth Blood Pressure 96/77 L 96/77 L 96/77 L Blood Pressure Mean 80 80 80 Pulse Oximetry Oxygen Delivery Method Oxygen Flow Rate Sepsis Recent Fever Within 48 Hours Sepsis New/Unexplained Change in Mental Status Sepsis Action Taken by Nursing 03/21/25 11:15 03/21/25 11:15 03/21/25 11:15 Temperature Temperature Source Pulse Rate 114 H Pulse Rate from SpO2 Sensor 113 H Pulse Rhythm Respiratory Rate 26 H Respiratory Effort / Characteristics Respiratory Depth Blood Pressure 96/77 L 96/77 L Blood Pressure Mean 80 80 Pulse Oximetry 96 Oxygen Delivery Method Oxygen Flow Rate Sepsis Recent Fever Within 48 Hours Sepsis New/Unexplained Change in Mental Status Sepsis Action Taken by Nursing 03/21/25 11:21 Temperature Temperature Source Pulse Rate 117 H Pulse Rate from SpO2 Sensor 115 H Pulse Rhythm Respiratory Rate 19 Respiratory Effort / Characteristics Respiratory Depth Blood Pressure Blood Pressure Mean Pulse Oximetry 98 Oxygen Delivery Method Oxygen Flow Rate Sepsis Recent Fever Within 48 Hours Sepsis New/Unexplained Change in Mental Status Sepsis Action Taken by Nursing Physical Exam NECK: Normal range of motion. Neck supple. No JVD present. CV: Normal rate, irregular rhythm, normal heart sounds and intact distal pulses. Palpable radial pulses bue. PULM/CHEST: Effort normal and breath sounds normal. No respiratory distress. No stridor. no wheezes. no rales. ABD: The abdomen is soft. There is no tenderness. MUSC: Right lower extremity erythematous and swollen. Course Course 0759: The patient was evaluated in room B12B. A complete history and physical exam was performed Cardiac monitoring: An order was placed for continuous cardiac monitoring. The monitor shows a rate of 120 with sinus tachycardia rhythm interpreted by tn Sepsis protocols initiated. Patient hypoxic as placed on supplemental oxygen via nasal cannula. 0920: Patient hypotensive after CT scan. Second liter of IV fluids ordered for total of 30 cc/kg bolus. Rocephin ordered for patient's UTI. Received a call from lab that they are concerned for possible anaplasmosis based off patient's blood smear. Does not add up with the patient's history as she is demented and prison did not go outside and most likely has very little exposure to ticks however tickborne panel was added and IV doxycycline was also ordered for the patient. 1019: Patient remains hypotensive. Patient will be admitted to the [facility] team. Vancomycin also ordered for the patient's cellulitis. Spoke with Dr. Graff for ICU made him aware of the patient. Will put the patient in for third liter of normal saline and plan for possible norepinephrine infusion. Spoke with the patient's family son and [id number] [phone]. They confirmed that the patient is DNR/DNI but the patient would be okay with receiving IV pressors antibiotics and central venous access if necessary. 1100: Patient's blood pressure is 105/48 after beginning third liter of normal saline. Holding off on Levophed for now. Discussed with Dr. Reyes who came down to evaluate the patient and states she thinks she will place the patient in PCU. Administered Medications Heparin Sodium (Porcine) (Heparin Sod 5,000 Unit/0.5 Ml Vial) 5,000 units SQ Q8 FARHANA Stop: 04/20/25 13:59 Last Admin: 03/21/25 14:06 Dose: 5,000 units Documented By: valdez Sodium Chloride (Nss) 1,000 mls @ 125 mls/hr IV .Q8H FARHANA Stop: 03/21/25 18:59 Last Admin: 03/21/25 11:09 Dose: 125 mls/hr Documented By: valdez Discontinued Medications Sodium Chloride (Nss) 1,000 mls @ 999 mls/hr IV .Q1H1M ONE Stop: 03/21/25 08:56 Last Infusion: 03/21/25 11:10 Dose: Infused Documented By: tha Admin: 03/21/25 08:17 Dose: 999 mls/hr Documented By: valdez Acetaminophen (Ofirmev) 1,000 mg in 100 mls @ 400 mls/hr IV NOW STA Stop: 03/21/25 08:10 Last Infusion: 03/21/25 11:10 Dose: Infused Documented By: tha Admin: 03/21/25 08:17 Dose: 400 mls/hr Documented By: valdez Ceftriaxone Sodium (Rocephin) 2,000 mg in 50 mls @ 100 mls/hr IV NOW STA Stop: 03/21/25 09:09 Last Infusion: 03/21/25 11:10 Dose: Infused Documented By: tha Admin: 03/21/25 08:53 Dose: 100 mls/hr Documented By: valdez Sodium Chloride (Nss) 1,000 mls @ 999 mls/hr IV .Q1H1M ONE Stop: 03/21/25 10:20 Last Infusion: 03/21/25 11:35 Dose: Infused Documented By: tha Admin: 03/21/25 10:19 Dose: 999 mls/hr Documented By: valdez Infusion: 03/21/25 10:19 Dose: Infused Documented By: valdez Admin: 03/21/25 09:22 Dose: 999 mls/hr Documented By: valdez Doxycycline Hyclate (Vibramycin) 100 mg in 100 mls @ 50 mls/hr IV NOW STA Stop: 03/21/25 11:31 Last Infusion: 03/21/25 11:35 Dose: Infused Documented By: tha Admin: 03/21/25 09:41 Dose: 50 mls/hr Documented By: valdez Vancomycin HCl 1,250 mg/ (Sodium Chloride) 525 mls @ 200 mls/hr IV NOW ONE Stop: 03/21/25 12:43 Last Infusion: 03/21/25 13:31 Dose: Infused Documented By: Admin: 03/21/25 10:27 Dose: 200 mls/hr Documented By: valdez Norepinephrine Bitartrate (Levophed/D5w) 4 mg in 250 mls @ 11.831 mls/hr IV .Q21H8M FARHANA; Protocol Stop: 04/20/25 10:14 Last Admin: 03/21/25 11:34 Dose: Not Given Documented By: tha Sodium Chloride (Nss) 1,000 mls @ 999 mls/hr IV .Q1H1M ONE Stop: 03/21/25 11:11 Last Infusion: 03/21/25 11:36 Dose: Infused Documented By: tha Admin: 03/21/25 10:20 Dose: 999 mls/hr Documented By: valdez Ioversol (Optiray 320 100ml) 94 ml IV ONCE ONE Stop: 03/21/25 08:47 Last Admin: 03/21/25 08:46 Dose: 94 ml Documented By: EMILY Ioversol (Optiray 320 125ml) 80 ml IV ONCE ONE Stop: 03/21/25 09:20 Last Admin: 03/21/25 09:20 Dose: 80 ml Documented By: EMILY Levalbuterol HCl (Levalbuterol Hcl 0.63 Mg/3 Ml Neb) 0.63 mg NEB NOW STA; Protocol Stop: 03/21/25 11:19 Last Admin: 03/21/25 13:12 Dose: 0.63 mg Documented By: DINA Miscellaneous (Stat Iv Infusion Titration Per Protocol) 1 each N/A NOW STA Stop: 03/21/25 10:12 Last Admin: 03/21/25 11:34 Dose: Not Given Documented By: tha Critical Care Time Critical Care Time: Yes Total Critical Care Time: 39 I have personally spent greater than 39 minutes of critical care time in the direct management of this patient. This includes bedside care, interpretation of diagnostic studies, and testing, discussion with consultants, patient, and family members, and other required patient management activities. This 39 minutes is in excess of all separately billable procedures. Medical Decision Making Laboratory Data Attestation: I reviewed the patient's lab results. 03/21/25 08:00 03/21/25 08:00 Lab Results 03/21/25 03/21/25 03/21/25 Range/Units 08:00 08:01 08:16 WBC 13.39 H (4.8-10.8) K/ul RBC 4.48 (4.20-5.40) M/uL Hgb 12.8 (12.0-16.0) g/dL POC Hgb 13.3 (12.0-16.0) g/dl Hct 37.8 (37.0-47.0) % POC Hct 39 (37-47) % MCV 84.4 (80.0-100.0) fL MCH 28.6 (25.0-34.0) pg MCHC 33.9 (32.0-36.0) g/dL RDW Std Deviation 47.0 H (36.4-46.3) fL RDW Coeff of Lorenzo 15.3 H (11.5-14.5) % Plt Count 171 (130-400) K/uL MPV 9.9 (9.4-12.4) fL Immature Gran % (Auto) 1.1 % Neut % (Auto) 90.7 % Lymph % (Auto) 3.7 % Zavala % (Auto) 4.4 % Eos % (Auto) 0.0 % Baso % (Auto) 0.1 % Neut # (Auto) 12.14 H (1.40-6.50) K/uL Lymph # (Auto) 0.50 L (1.20-3.40) K/uL Zavala # (Auto) 0.59 (0.11-0.59) K/uL Eos # (Auto) 0.00 (0.00-0.50) K/uL Baso # (Auto) 0.01 (0.00-0.20) K/uL Immature Gran # (Auto) 0.15 (0.01-0.20) K/uL Ovalocytes 1+ PT 11.4 (9.0-12.0) Seconds INR 1.1 (0.9-1.1) VBG pH (7.36-7.41) VBG pCO2 (38-50) mmHg VBG pO2 mmHg VBG HCO3 mmol/L VBG O2 Saturation % VBG Base Excess mEq/L POC Sodium 137 (135-144) mmol/L Sodium 134 L (136-145) mmol/L POC Potassium 4.3 (3.3-5.0) mmol/L Potassium 4.4 (3.5-5.1) mmol/L POC Chloride 104 (101-112) mmol/L Chloride 104 (98-107) mmol/L Carbon Dioxide 20 L (21-32) mmol/L POC Total CO2 17 L (24-31) mmol/L Anion Gap 10 (3-11) POC Anion Gap 21.0 (16-25) mmol/L POC BUN 26 H (7-18) mg/dl BUN 27 H (6-23) mg/dl Creatinine 1.18 (0.6-1.2) mg/dl POC Creatinine 1.3 (0.6-1.3) mg/dl Est Cr Clr Drug Dosing Not Reportable eGFR 44.15 BUN/Creatinine Ratio 22.9 H (10-20) Glucose 115 H (70-99(Fasting)) mg/dl POC Glucose (other) 123 H (70-99) mg/dl Lactate 2.6 H* (0.4-2.0) mmol/L Calcium 9.0 (8.6-10.3) mg/dl POC Ioniz Calcium Dru 1.12 (1.12-1.32) mmol/l Magnesium 1.8 (1.7-2.4) mg/dl Total Bilirubin 1.0 (0.2-1.0) mg/dl Direct Bilirubin TNP AST 20 (13-39) U/L ALT 10 (7-52) U/L Alkaline Phosphatase 63 (34-104) U/L Troponin I High Sens 11.8 (0-14) pg/ml Total Protein 7.8 (6.0-8.3) gm/dl Albumin 4.1 (3.4-5.0) gm/dl Lipase 14 (11-82) U/L Procalcitonin 2.52 H (0-0.5) ng/ml Urine Color Yellow Urine Appearance Clear (Clear) Urine pH 8.0 H (4.5-7.5) Ur Specific [place] 1.020 (1.000-1.030) Urine Protein 1+ H (Negative) Urine Glucose (UA) Negative (Negative) Urine Ketones Trace H (Negative) Urine Blood Negative (Negative) Urine Nitrite Negative (Negative) Urine Bilirubin Negative (Negative) Urine Urobilinogen Negative (Negative) Ur Leukocyte Esterase Trace H (Negative) Urine WBC (Auto) 0-5 (0-5) /hpf Urine RBC (Auto) 3-5 H (0-2) /hpf U Hyaline Cast (Auto) 0-2 (0-2) /lpf U Epithel Cells (Auto) 0-2 (0-2) /hpf Urine Bacteria (Auto) 4+ H (None Seen) Urine Comment Adenovirus (PCR) Not Detected (NotDetected) Anaplasma Smear See Comment Babesia Smear See Comment B. pertussis DNA (PCR) Not Detected (NotDetected) B.parapertussis DNA PCR Not Detected (NotDetected) Lyme Disease Screen (Negative) C. pneumoniae DNA (PCR) Not Detected (NotDetected) Coronavirus OC43 (PCR) Not Detected (NotDetected) Coronavirus HKU1 (PCR) Not Detected (NotDetected) Coronavirus 229E (PCR) Not Detected (NotDetected) SARS-CoV-2 (PCR) Not Detected (NotDetected) Coronavirus NL63 (PCR) Not Detected (NotDetected) Human Metapneumovir PCR Not Detected (NotDetected) Influenza Type A (PCR) Not Detected (NotDetected) Influenza Type B (PCR) Not Detected (NotDetected) M. pneumoniae (PCR) Not Detected (NotDetected) Parainfluenza 1 (PCR) Not Detected (NotDetected) Parainfluenza 2 (PCR) Not Detected (NotDetected) Parainfluenza 3 (PCR) Not Detected (NotDetected) Parainfluenza 4 (PCR) Not Detected (NotDetected) RSV (PCR) Not Detected (NotDetected) Entero/Rhino (PCR) Not Detected (NotDetected) 03/21/25 03/21/25 03/21/25 Range/Units 08:52 09:46 09:47 WBC (4.8-10.8) K/ul RBC (4.20-5.40) M/uL Hgb (12.0-16.0) g/dL POC Hgb (12.0-16.0) g/dl Hct (37.0-47.0) % POC Hct (37-47) % MCV (80.0-100.0) fL MCH (25.0-34.0) pg MCHC (32.0-36.0) g/dL RDW Std Deviation (36.4-46.3) fL RDW Coeff of Lorenzo (11.5-14.5) % Plt Count (130-400) K/uL MPV (9.4-12.4) fL Immature Gran % (Auto) % Neut % (Auto) % Lymph % (Auto) % [place] % (Auto) % Eos % (Auto) % Baso % (Auto) % Neut # (Auto) (1.40-6.50) K/uL Lymph # (Auto) (1.20-3.40) K/uL [place]ala # (Auto) (0.11-0.59) K/uL Eos # (Auto) (0.00-0.50) K/uL Baso # (Auto) (0.00-0.20) K/uL Immature Gran # (Auto) (0.01-0.20) K/uL Ovalocytes PT (9.0-12.0) Seconds INR (0.9-1.1) VBG pH 7.40 (7.36-7.41) VBG pCO2 30 L (38-50) mmHg VBG pO2 35 mmHg VBG HCO3 19 mmol/L VBG O2 Saturation < 60.0 % VBG Base Excess -5.0 mEq/L POC Sodium (135-144) mmol/L Sodium (136-145) mmol/L POC Potassium (3.3-5.0) mmol/L Potassium (3.5-5.1) mmol/L POC Chloride (101-112) mmol/L Chloride (98-107) mmol/L Carbon Dioxide (21-32) mmol/L POC Total CO2 (24-31) mmol/L Anion Gap (3-11) POC Anion Gap (16-25) mmol/L POC BUN (7-18) mg/dl BUN (6-23) mg/dl Creatinine (0.6-1.2) mg/dl POC Creatinine (0.6-1.3) mg/dl Est Cr Clr Drug Dosing eGFR BUN/Creatinine Ratio (10-20) Glucose (70-99(Fasting)) mg/dl POC Glucose (other) (70-99) mg/dl Lactate 1.6 (0.4-2.0) mmol/L Calcium (8.6-10.3) mg/dl POC Ioniz Calcium Dru (1.12-1.32) mmol/l Magnesium (1.7-2.4) mg/dl Total Bilirubin (0.2-1.0) mg/dl Direct Bilirubin AST (13-39) U/L ALT (7-52) U/L Alkaline Phosphatase (34-104) U/L Troponin I High Sens (0-14) pg/ml Total Protein (6.0-8.3) gm/dl Albumin (3.4-5.0) gm/dl Lipase (11-82) U/L Procalcitonin (0-0.5) ng/ml Urine Color Urine Appearance (Clear) Urine pH (4.5-7.5) Ur Specific [place] (1.000-1.030) Urine Protein (Negative) Urine Glucose (UA) (Negative) Urine Ketones (Negative) Urine Blood (Negative) Urine Nitrite (Negative) Urine Bilirubin (Negative) Urine Urobilinogen (Negative) Ur Leukocyte Esterase (Negative) Urine WBC (Auto) (0-5) /hpf Urine RBC (Auto) (0-2) /hpf U Hyaline Cast (Auto) (0-2) /lpf U Epithel Cells (Auto) (0-2) /hpf Urine Bacteria (Auto) (None Seen) Urine Comment Adenovirus (PCR) (NotDetected) Anaplasma Smear Babesia Smear B. pertussis DNA (PCR) (NotDetected) B.parapertussis DNA PCR (NotDetected) Lyme Disease Screen Negative (Negative) C. pneumoniae DNA (PCR) (NotDetected) Coronavirus OC43 (PCR) (NotDetected) Coronavirus HKU1 (PCR) (NotDetected) Coronavirus 229E (PCR) (NotDetected) SARS-CoV-2 (PCR) (NotDetected) Coronavirus NL63 (PCR) (NotDetected) Human Metapneumovir PCR (NotDetected) Influenza Type A (PCR) (NotDetected) Influenza Type B (PCR) (NotDetected) M. pneumoniae (PCR) (NotDetected) Parainfluenza 1 (PCR) (NotDetected) Parainfluenza 2 (PCR) (NotDetected) Parainfluenza 3 (PCR) (NotDetected) Parainfluenza 4 (PCR) (NotDetected) RSV (PCR) (NotDetected) Entero/Rhino (PCR) (NotDetected) Imaging Data Attestation: I personally reviewed and interpreted this imaging study as follows: My Impression: Chest x-ray negative. Airway clear. No pneumothorax. No consolidation. No cardiomegaly or cephalization.. No free air under the diaphragm. No fractures of the skeletal structures. Radiologist's Impression: Chest X-Ray 03/21/25 07:54 XR chest 1V portable HISTORY: 89 years-old Female Sepsis acute sepsis COMPARISON: None TECHNIQUE: AP view of the chest FINDINGS: Cardiac silhouette is mildly enlarged. No pneumothorax, pleural effusion or overt pulmonary edema. Mild linear subsegmental left basilar atelectasis. Calcified granuloma at the lateral left midlung. Bones of the chest appear grossly intact. IMPRESSION: No acute process. ACT 112: Negative or not required by law. The above report was generated using voice recognition software. It may contain grammatical, syntax or spelling errors. Electronically signed by: Néstor Seo M.D. 03/21/2025 8:[address] 03/21/25 08:00 CT head/brain wo con CLINICAL HISTORY: 89 years-old Female with ams. Acutely altered mental status TECHNIQUE: Multiple axial CT images of the head were obtained without contrast. A dose lowering technique was utilized adhering to the principles of ALARA. COMPARISON: None. FINDINGS: No acute intracranial hemorrhage, midline shift, intracranial mass, hydrocephalus, territorial ischemia or abnormal extra-axial collection. Involutional changes with white matter hypodensities suggestive of chronic microvascular ischemic disease. Moderate ventriculomegaly, likely on an ex vacuo basis. Cerebral vascular calcifications. The calvarium is intact. Mild mucosal thickening of the ethmoid air cells. Mastoid air cells are clear. IMPRESSION: No acute intracranial abnormality. ACT 112: Negative or not required by law. The above report was generated using voice recognition software. It may contain grammatical, syntax or spelling errors. Electronically signed by: Néstor Seo M.D. 03/21/2025 9:32 AM Abdomen/Pelvis CT 03/21/25 08:[address] WITH IV CONTRAST CT DOSE: 1495.71 mGy.cm HISTORY: Acute nausea and vomiting vomitting TECHNIQUE: Multiaxial CT images of the abdomen and pelvis were performed following the IV administration of 94 cc of Optiray, A dose lowering technique was utilized adhering to the principles of ALARA. COMPARISON STUDY: CTA chest of same day FINDINGS: Chest CT dictated separately. Coronary artery calcifications are noted. Right basilar mucous plugging with mild bibasilar atelectasis. No pneumatosis or pneumoperitoneum. Calcified granulomata of the spleen. Unremarkable adrenal glands, gallbladder and liver with patency of the hepatic and portal veins. There are a few scattered hypodense foci of the pancreas measuring up to 9 mm, likely side branch IPMN's. Subcentimeter hypodensities of the left kidney, likely cysts. No hydronephrosis. Unremarkable urinary bladder with mild wall thickening. Indeterminate cystic left adnexal lesion measuring 1.9 cm, favored to be benign. Atherosclerosis of the aorta without aneurysm. Right inguinal chain lymph nodes measure up to 9 mm with mild adjacent inflammatory stranding. Fluid-filled distal esophagus. Small hiatal hernia. There is no bowel obstruction or bowel wall thickening. There is mild to moderate colonic fecal retention. Scattered small bowel air-fluid levels with loops measuring up to 2.2 cm. Normal appendix. Degenerative changes of the spine. Lumbar levoscoliosis. No acute fracture identified. IMPRESSION: 1. No bowel obstruction or pneumoperitoneum. 2. Scattered small bowel air-fluid levels may represent an enteritis or ileus. 3. Small hiatal hernia. 4. Incidental findings as above. ACT 112: Negative or not required by law. The above report was generated using voice recognition software. It may contain grammatical, syntax or spelling errors. Electronically signed by: Néstor Seo M.D. 03/21/2025 9:36 AM Chest CTA 03/21/25 08:40 CT angio chest PE protocol CT DOSE: 742.55 mGy.cm HISTORY: 89 years-old Female with ro PE. Acute shortness of breath with sepsis TECHNIQUE: Multiple CTA images of the chest were obtained after the intravenous administration of 80 ml Optiray. Coronal and sagittal MIPS were obtained from the axial data set and were submitted for review. All measurements were obtained according to NASCET criteria. A dose lowering technique was utilized adhering to the principles of ALARA. COMPARISON: CT abdomen and pelvis of same day FINDINGS: CTA: The heart is upper limits of normal in size. No pericardial effusion. Mild coronary artery calcifications. Atherosclerosis of the thoracic aorta. There is at least 50% stenosis at the origin of the left subclavian artery secondary to atherosclerotic plaque. No pulmonary emboli are identified, however the study is limited secondary to respiratory motion. CT CHEST: No thyroid nodule. Calcified mediastinal lymph nodes are suggestive of prior cranial disease. Noncalcified lymph nodes within the mediastinum and isabel measure up to 9 mm. No pneumothorax or pleural effusion. Mild intralobular septal thickening. There are a few scattered calcified pulmonary granulomata. Linear areas of bibasilar consolidation noted in conjunction with bronchial wall thickening and mild right basilar predominant mucous plugging. 3 mm subpleural low suspicion solid nodule left upper lobe, image 104. CT abdomen the dictated separately. Multilevel degenerative changes of the spine and shoulders. No acute fracture identified. IMPRESSION: 1. No pulmonary emboli identified. 2. Mild mucous plugging with bibasilar opacities suggestive of atelectasis. 3. Prior granulomatous disease. ACT 112: Negative or not required by law. The above report was generated using voice recognition software. It may contain grammatical, syntax or spelling errors. Electronically signed by: Néstor Seo M.D. 03/21/2025 9:46 AM Venous Doppler Study 03/21/25 08:40 BILATERAL LOWER EXTREMITY VENOUS DOPPLER HISTORY: Acute pain and swelling of the right lower leg ro dvt COMPARISON STUDY: None. FINDINGS: Limited exam secondary to patient lack of cooperation. Subcutaneous edema noted. There is normal compressibility, flow, and augmentation within the bilateral lower extremity deep venous systems. IMPRESSION: No DVT within the right or left lower extremity. ACT 112: Negative or not required by law. Electronically signed by: Néstor Seo M.D. 03/21/2025 12:32 PM ECG Data Attestation: I personally reviewed and interpreted this ECG as follows: Additional Comments: EKG #1 at 0749: Atrial fibrillation with a rate of 131. QRS [address] elevation or ST depression. EKG #2 at 1106: Atrial fibrillation with rate of 110. QRS [address] elevation or ST depression. [facility] Narrative 0759: The patient was evaluated in room B12B. A complete history and physical exam was performed Cardiac monitoring: An order was placed for continuous cardiac monitoring. The monitor shows a rate of 120 with sinus tachycardia rhythm interpreted by tn Sepsis protocols initiated. Patient hypoxic as placed on supplemental oxygen via nasal cannula. 0920: Patient hypotensive after CT scan. Second liter of IV fluids ordered for total of 30 cc/kg bolus. Rocephin ordered for patient's UTI. Received a call from lab that they are concerned for possible anaplasmosis based off patient's blood smear. Does not add up with the patient's history as she is demented and prison did not go outside and most likely has very little exposure to ticks however tickborne panel was added and IV doxycycline was also ordered for the patient. 1019: Patient remains hypotensive. Patient will be admitted to the [facility] team. Vancomycin also ordered for the patient's cellulitis. Spoke with Dr. Graff for ICU made him aware of the patient. Will put the patient in for third liter of normal saline and plan for possible norepinephrine infusion. Spoke with the patient's family son and [phone]. They confirmed that the patient is DNR/DNI but the patient would be okay with receiving IV pressors antibiotics and central venous access if necessary. 1100: Patient's blood pressure is 105/48 after beginning third liter of normal saline. Holding off on Levophed for now. Discussed with Dr. Reyes who came down to evaluate the patient and states she thinks she will place the patient in PCU. Impression & Plan Sepsis, Cellulitis, Acute UTI, Hypoxia Discharge Plan Visit Data Chief Complaint: Fever Stated Complaint: LETHARGIC, NAUSEA, VOMITING, FEVER ED Provider: Berhane Mendez Discharge Problem: Sepsis, Cellulitis, Acute UTI, Hypoxia Patient Disposition: Being Evaluated by Hospitalist Condition: Serious Discharge Instructions Interventions: ED Discharge Assessment Last Done: 03/21/25 12:29
[2025-03-21] MEDS: VANCOMYCIN HCL 1,250 MG in SODIUM CHLORIDE 0.9% 500 ML IV ONE (10:27)
--- NOTE | 2025-03-21 10:39 | History & Physical Report ---
Date of Service March 21, 2025 Assessment & Plan (1) Sepsis: (2) Acute UTI: (3) Cellulitis: Plan Ms. Barron is an 89 year old woman with past medical history remarkable for PSVT, HTN, HLD, COPD CAD, GERD, age related osteoporosis, open angle glaucoma, depression, dementia presented to [facility] ED due to altered mental status and nausea/vomiting. #Severe sepsis, possible multiple infectious sources #Acute complicated cystitis #RLE cellulitis lactate of 2.6, improved and reexamination seems to demonstrate response to fluid at this time, now afebrile RLE notes erythema, UA suspicious tick bourne labs ordered secondary to ?inclusions reported to ED procal 2.52 biofire negative MRSA nare pending follow blood cultures RLE doppler negative for DVT Continue CTX and doxy at this time continue Vanc contingent on MRSA nare Discussed case with ED physician, initial concern for ICU however, will admit to PCU and monitor closely NPO for now antiemetics prn KUB in am to reassess possible ileus, start bowel regimen as able, continue with bowel rest for now #hypoxia potentially multifactorial mucous plugging noted, will do nebs and IS as able, consider mucinex when able COPD noted as well but not in exacerbation also acute illness noted---will monitor IVF #PSVT #HTN #CAD #relative hypotension on Diltazem and lisinopril typically in sinus, but tachycardic on arrival iso of above hold antihypertensives, resume as able given history of PSVT will have metoprolol 2.5mg prn for rates greater than 115; however, rates improving with IVF at this time monitor on tele #Dyslipidemia, goal LDL below 70 continue statin #COPD not on inhalers consider mucinex bid when able to tolerate po levalbuterol prn DVT ppx heparin sq Admit PCU DNR.DNI per discussion with son Admission and Anticipated Discharge Date Admission Date: Time spent evaluating patient, direct bedside care, chart review, placing orders, interpretation of diagnostic studies, discussion with consultants, patient, and family members, as well as other required patient management activities is 85 critical care minutes. History of Present Illness Chief Complaint: [facility] Primary Care Provider: CHLOE Sen Ms. Barron is an 89 year old woman with past medical history remarkable for PSVT, HTN, HLD, COPD CAD, GERd, age related osteoporosis, open angle glaucoma, depression, dementia presented to [facility] ED due to altered mental status and nausea/vomiting. Patient is alert to self. Per [facility] documentation, patient is incontinent, requires assistance with bathing, dressing, transfers, toileting, and eating, ho wever reportedly ambulates independently. Though unable to reach nursing at [facility], the [id number] was able to report her understanding of what prompted EMS call. Virginie (YADIRA) reports that she received a call two days prior about a fall, in which no injuries were sustained reportedly and patient was otherwise at baseline. It seems that this morning, the patient was abruptly nauseated and vomited--unable to keep things down like Pedialyte or chopra, prompting presentation to ED. Virginie does note that patient always has issues with infection of her legs because "she picks and scratches." Patient awakens to verbal stimuli (hard of hearing). Patient will respond to name. She does not know where she is or the year, but is pleasant and kind. She denies any pain. She denies active nausea. She follows some commands, but requires more prompting. This is improved in comparison to prior report of initial arrival to ED multiple bedside visits were made to ensure stability In the ED, vitals were notable for BP of 70s to low 100s, HR of 100s-120s, and O2 sat of mid 90s on 2L NC febrile to 39.2 Imaging reviewed: Head CT did not show any acute intracranial processes, noted some mild mucosal thickening of ethmoid air cells. CT ABP revealed some small cycts on left kidney, mild bladder wall thickening, left adnexal likely benign adenexal lesion, fluid filled distal esophagus, small hiatal hernia, colonic fecal retention, possible enteritis or ileus CTA chest with mucous plugging EKG with appears regular though reports reads a fib would contest ED interventions: s/p 3 L NS per sepsis protocol, vanc, ctx and doxy NE ordered but not started Patient to be admitted to PCU for further evaluation and management of severe sepsis 2/2 possible cellulitis, cystitis, and questionable ileus Allergies Allergy/AdvReac Type Severity Reaction Status Date / Time No Known Drug Allergies Allergy Unknown . Verified 10/31/22 09:06 Home Medications Medication Instructions Recorded Confirmed Type alendronate 70 mg tablet 70 mg PO WK 10/31/22 03/21/25 History diltiazem HCl 180 mg capsule,24 180 mg PO QAM 10/31/22 03/21/25 History hr,extended release dorzolamide 22.3 mg-timolol 6.8 1 drp ophthalmic (eye) BID 10/31/22 03/21/25 History mg/mL eye drops fluoxetine 40 mg capsule 60 mg PO QAM 10/31/22 03/21/25 History lisinopril 2.5 mg tablet 2.5 mg PO QAM 10/31/22 03/21/25 History rosuvastatin 20 mg tablet 20 mg PO QPM 10/31/22 03/21/25 History travoprost 0.004 % eye drops 1 drp ophthalmic (eye) BID 10/31/22 03/21/25 History acetaminophen 325 mg tablet 650 mg PO Q4H PRN pain/temp 03/21/25 03/21/25 History (Tylenol) fluocinonide 0.05 % topical cream 1 applic topical BID PRN skin 03/21/25 03/21/25 History issues latanoprostene bunod 0.024 % eye 1 drp OPB HS 03/21/25 03/21/25 History drops (Vyzulta) mineral oil-hydrophil petrolat 1 applic topical BID 03/21/25 03/21/25 History topical ointment mirtazapine 15 mg tablet 15 mg PO HS 03/21/25 03/21/25 History naproxen 250 mg tablet 250 mg PO BID PRN Inflammation 03/21/25 03/21/25 History silver chloride 1 ea topical DAILY 03/21/25 03/21/25 History Past Med/Surg History Problem List (Updated 03/21/25 @ 12:21 by Background Daemon) Hypoxia (Acute) Acute UTI (Acute) Cellulitis (Acute) Sepsis (Acute) Medical History (Updated 03/21/25 @ 12:21 by Background Daemon) History of kidney stones Osteoporosis Osteoarthritis GERD (gastroesophageal reflux disease) Glaucoma Depression Poor historian HLD (hyperlipidemia) HTN (hypertension) Irregular heart rhythm Follows with Dr. Rasheed COPD (chronic obstructive pulmonary disease) Surgical History History of cataract surgery History of cystoscopy with stone extraction History of colonoscopy History of cardiac radiofrequency ablation Social History Smoking Status: Unknown if ever smoked Second Hand Exposure: Yes (hx); Do You Dip or Chew Tobacco: No; Hx Alcohol Use: No Hx Substance Use: No Preferred Language: Spanish Communication Ability: Effective Zanjero Required: No Beliefs That Will Affect Care: None Current Living Situation: Alone Feels Safe at Home: Yes Assistive Devices: Cane and Glasses Review of Systems Review of Systems: Unobtainable due to reduced consciousness Physical Exam Physical Exam: GENERAL APPEARANCE: AxOx1, elderly female, lethargic HEENT: NC, AT. MMM. EOMI, clear conjunctiva, oropharynx clear. NECK: Supple without lymphadenopathy. No stiffness or restricted ROM. HEART: tachycardic, sounds regular, no murmur/regurg LUNGS: CTAB, moving air well. No crackles or wheezes are heard. ABDOMEN: firm protuberant, nontender BACK: No CVAT, no obvious deformity. EXTREMITIES: Without cyanosis, clubbing or edema. NEUROLOGICAL: Grossly nonfocal. Alert and oriented, moving all 4 extremities. CN not formally tested but appear grossly intact. Skin: erythematous RLE with slight increase in swelling compared to LLE Results & Data Results & Data Vital Signs (Past 12 Hours) Vital Signs Temp Pulse Resp BP Pulse Ox O2 Del Method O2 Flow Rate 03/21/25 10:30 115 H 20 98 Nasal Cannula 2 03/21/25 10:30 105/48 L 03/21/25 10:30 105/48 L 03/21/25 10:30 105/48 L 03/21/25 10:30 105/48 L 03/21/25 10:30 105/48 L 03/21/25 10:21 93/52 L 03/21/25 10:21 93/52 L 03/21/25 10:21 93/52 L 03/21/25 10:21 93/52 L 03/21/25 10:21 93/52 L 03/21/25 10:21 117 H 24 97 03/21/25 10:15 107 H 23 97 03/21/25 10:15 92/57 L 03/21/25 10:15 92/57 L 03/21/25 10:15 92/57 L 03/21/25 10:15 92/57 L 03/21/25 10:15 92/57 L 03/21/25 10:12 124 H 24 97 03/21/25 10:00 85/49 L 03/21/25 10:00 85/49 L 03/21/25 10:00 85/49 L 03/21/25 10:00 85/49 L 03/21/25 10:00 85/49 L 03/21/25 10:00 116 H 25 H 97 03/21/25 09:57 81/49 L 03/21/25 09:57 81/49 L Nasal Cannula 2 03/21/25 09:57 81/49 L 03/21/25 09:57 108 H 24 97 03/21/25 09:56 80/54 L 03/21/25 09:54 118 H 21 97 03/21/25 09:51 120 H 22 97 03/21/25 09:46 87/57 L 03/21/25 09:46 87/57 L 03/21/25 09:46 87/57 L 03/21/25 09:46 87/57 L 03/21/25 09:46 87/57 L 03/21/25 09:45 117 H 23 97 03/21/25 09:43 93/52 L 03/21/25 09:43 93/52 L 03/21/25 09:43 93/52 L 03/21/25 09:43 93/52 L 03/21/25 09:42 118 H 22 97 03/21/25 09:30 114 H 27 H 97 03/21/25 09:30 89/57 L 03/21/25 09:30 89/57 L 03/21/25 09:30 89/57 L 03/21/25 09:30 89/57 L 03/21/25 09:30 89/57 L 03/21/25 09:30 37.2 C 03/21/25 09:21 74/52 L 03/21/25 09:21 74/52 L 03/21/25 09:21 74/52 L 03/21/25 09:21 119 H 19 96 03/21/25 09:19 74/56 L 03/21/25 09:19 78/54 L 03/21/25 09:19 78/54 L 03/21/25 09:18 113 H 24 96 03/21/25 09:00 117 H 26 H 98 03/21/25 09:00 91/54 L 03/21/25 09:00 91/54 L 03/21/25 09:00 91/54 L 03/21/25 09:00 91/54 L 03/21/25 09:00 91/54 L 03/21/25 08:52 121 H 03/21/25 08:51 121 H 26 H 97 Nasal Cannula 2 03/21/25 08:45 107/58 L 03/21/25 07:55 39.2 C H 125 H 24 119/82 91 Room Air 03/21/25 07:54 Room Air Laboratory Results Short CBC 03/21/25 Range/Units 08:00 WBC 13.39 H (4.8-10.8) K/ul Hgb 12.8 (12.0-16.0) g/dL Hct 37.8 (37.0-47.0) % Plt Count 171 (130-400) K/uL BMP 03/21/25 08:00 Sodium 134 L Potassium 4.4 Chloride 104 Carbon Dioxide 20 L BUN 27 H Creatinine 1.18 Glucose 115 H Calcium 9.0 Liver Function 03/21/25 Range/Units 08:00 Total Bilirubin 1.0 (0.2-1.0) mg/dl Direct Bilirubin TNP AST 20 (13-39) U/L ALT 10 (7-52) U/L Alkaline Phosphatase 63 (34-104) U/L Albumin 4.1 (3.4-5.0) gm/dl Urine 03/21/25 Range/Units 08:16 Urine Color Yellow Urine Appearance Clear (Clear) Urine pH 8.0 H (4.5-7.5) Ur Specific [place] 1.020 (1.000-1.030) Urine Protein 1+ H (Negative) Urine Glucose (UA) Negative (Negative) Medications Administered Home Medications Medication Instructions Recorded Confirmed Last Taken alendronate 70 mg tablet 70 mg PO WK 10/31/22 03/21/25 Unknown diltiazem HCl 180 mg capsule,24 180 mg PO QAM 10/31/22 03/21/25 Unknown hr,extended release dorzolamide 22.3 mg-timolol 6.8 1 drp ophthalmic (eye) BID 10/31/22 03/21/25 Unknown mg/mL eye drops fluoxetine 40 mg capsule 60 mg PO QAM 10/31/22 03/21/25 Unknown lisinopril 2.5 mg tablet 2.5 mg PO QAM 10/31/22 03/21/25 Unknown rosuvastatin 20 mg tablet 20 mg PO QPM 10/31/22 03/21/25 Unknown travoprost 0.004 % eye drops 1 drp ophthalmic (eye) BID 10/31/22 03/21/25 Unknown acetaminophen 325 mg tablet 650 mg PO Q4H PRN pain/temp 03/21/25 03/21/25 Unknown (Tylenol) fluocinonide 0.05 % topical cream 1 applic topical BID PRN skin 03/21/25 03/21/25 Unknown issues latanoprostene bunod 0.024 % eye 1 drp OPB HS 03/21/25 03/21/25 Unknown drops (Vyzulta) mineral oil-hydrophil petrolat 1 applic topical BID 03/21/25 03/21/25 Unknown topical ointment mirtazapine 15 mg tablet 15 mg PO HS 03/21/25 03/21/25 Unknown naproxen 250 mg tablet 250 mg PO BID PRN Inflammation 03/21/25 03/21/25 Unknown silver chloride 1 ea topical DAILY 03/21/25 03/21/25 Unknown Active Medications Generic Name Dose Route Start Last Admin Trade Name Day PRN Reason Stop Dose Admin Doxycycline Hyclate 100 mg in 100 mls @ 50 mls/hr 03/21/25 09:32 03/21/25 09:41 Vibramycin IV 03/21/25 11:31 50 mls/hr NOW STA Administration Vancomycin HCl 1,250 mg/ 525 mls @ 200 mls/hr 03/21/25 10:06 03/21/25 10:27 Sodium Chloride IV 03/21/25 12:43 200 mls/hr NOW ONE Administration Sodium Chloride 1,000 mls @ 999 mls/hr 03/21/25 10:11 03/21/25 10:20 Nss IV 03/21/25 11:11 999 mls/hr .Q1H1M ONE Administration Sodium Chloride 1,000 mls @ 125 mls/hr 03/21/25 11:00 03/21/25 11:09 Nss IV 03/21/25 18:59 125 mls/hr .Q8H FARHANA Administration
[2025-03-21] MEDS: SODIUM CHLORIDE 0.9% 1,000 ML IV SCH (11:09)
[2025-03-21] MEDS ORDERED: ONDANSETRON INJ 2 MG/ML 2 ML VIAL IV PRN (11:24)
[2025-03-21] MEDS: STAT IV Infusion **Titration per Protocol STA (11:34)
[2025-03-21] MEDS: NOREPINEPHRINE/D5W 4 MG/250 ML PLCT IV SCH (11:34)
--- NOTE | 2025-03-21 12:33 | Ultrasound Report ---
BILATERAL LOWER EXTREMITY VENOUS DOPPLER HISTORY: Acute pain and swelling of the right lower leg ro dvt COMPARISON STUDY: None. FINDINGS: Limited exam secondary to patient lack of cooperation. Subcutaneous edema noted. There is n ormal compressibility, flow, and augmentation within the bilateral lower extremity deep venous system s. IMPRESSION: No DVT within the right or left lower extremity. ACT 112: Negative or not required by law. Electronically signed by: Néstor Seo M.D. 03/21/2025 12:32 PM
[2025-03-21] MEDS: LEVALBUTEROL HCL 0.63 MG/3 ML NEB NEB STA (13:12)
--- NOTE | 2025-03-21 13:48 | Pharmacy Report ---
Pharmacy PK ABX Note - Date of Service March 21, 2025 - Assessment and Plan Assessment 89 year old F receiving vancomycin, ceftriaxone and doxycycline empirically in setting of sepsis. Blood cultures pending. MRSA nasal pending. Renal function stable. Day # 1 of antimicrobial therapy. Plan Vancomycin * Loading dose: 1250 mg IV x 1 * Maintenance dose: 750 mg IV every 24 hours * Regimen is predicted to achieve target AUC/AFSHAN of 400-600 mg/L.hr * Will obtain a level if therapy continued beyond 48h Pharmacy will continue to follow and will adjust dose/frequency as necessary. Thank you. Pharmacy has transitioned to AUC monitoring for vancomycin. AUC/AFSHAN is the preferred PK/PD target and is associated with decreased risk of nephrotoxicity compared to traditional trough targets.
[2025-03-21] MEDS: HEPARIN SOD 5,000 UNIT/0.5 ML VIAL SQ SCH (14:06)
[2025-03-21] MEDS: FUROSEMIDE INJ 20 MG/2 ML VIAL IV STA (15:19)
[2025-03-21] MEDS ORDERED: LATANOPROSTENE BUNOD 0.024% OPB SCH (21:00)
[2025-03-21] MEDS: 4.5GM X1 IV STA (21:10)
[2025-03-21] MEDS: VANCOMYCIN 750 MG in SODIUM CHLORIDE 0.9% 250 ML IV SCH (21:10)
[2025-03-21] MEDS: MIRTAZAPINE TAB 15 MG TAB PO SCH (21:11)
[2025-03-21] MEDS: ROSUVASTATIN CALCIUM 20 MG TAB PO SCH (21:11)
[2025-03-21] MEDS: TRAVOPROST Z 0.004% OPH SOLN 2.5 ML BTL OP SCH (21:11)
[2025-03-21 21:57] LABS: Base Excess VBG -6.8 mEq/L; HCO3 VBG 18 mmol/L; Oxygen Saturation VBG 69.0 %; PCO2 VBG 31 mmHg (38-50); PO2 VBG 38 mmHg; pH VBG 7.36 (7.36-7.41)
[2025-03-22] MEDS: PIPERACILLIN/TAZOBACTAM 4.5 GM/100 ML BAG IV SCH (02:52)
[2025-03-22] MEDS: ACETAMINOPHEN 325 MG TAB PO PRN (03:01)
[2025-03-22] MEDS: SODIUM CHLORIDE 0.9% 500 ML IV ONE (04:51)
[2025-03-22 04:52] LABS: Hematocrit (blood only) 30.9 % (37.0-47.0); Hemoglobin 10.1 g/dL (12.0-16.0); Mean Corpuscular Hemoglobin 28.2 pg (25.0-34.0); Mean Corpuscular Volume 86.3 fL (80.0-100.0); Platelet Count 133 K/uL (130-400); RDW Standard Deviation 49.7 fL (36.4-46.3); Red Blood Count 3.58 M/uL (4.20-5.40); White Blood Count 10.37 K/ul (4.8-10.8)
[2025-03-22] MEDS: SODIUM CHLORIDE 0.9% 1,000 ML IV SCH (05:00)
[2025-03-22 05:50] LABS: Alanine Aminotransferase 9.0 U/L (7-52); Albumin Globulin Ratio 1.0 (0.9-2); Albumin Level 2.8 gm/dl (3.4-5.0); Alkaline Phosphatase 44.0 U/L (34-104); Anion Gap 6.0 (3-11); Bilirubin,Total 0.5 mg/dl (0.2-1.0); Blood Urea Nitrogen 19.0 mg/dl (6-23); Calcium 7.2 mg/dl (8.6-10.3); Carbon Dioxide 17.0 mmol/L (21-32); Chloride 112.0 mmol/L (98-107); Creatinine Clr Calc Pharmacy 33.1 ml/min; Globulin 2.9 gm/dl (2.5-4.0); Glucose 101.0 mg/dl (70-99(Fasting)); Magnesium 1.8 mg/dl (1.7-2.4); Potassium 3.8 mmol/L (3.5-5.1); Sodium 135.0 mmol/L (136-145); Total Protein 5.7 gm/dl (6.0-8.3)
[2025-03-22] MEDS ORDERED: SODIUM PHOSPHATE 3 MMOL/1 ML INFUSION IV STA (07:46)
--- NOTE | 2025-03-22 08:15 | XRay Report ---
EXAM: XR KUB/Abdomen 1 view CLINICAL HISTORY: Ileus. TECHNIQUE: X-ray images of the abdomen were obtained in supine and upright positions. COMPARISON: No prior studies available for comparison. FINDINGS: Gas Pattern: Distended bowel loops loaded with fecal matter, with no evidence of intestinal obstruction. Soft Tissues: Soft tissues of the abdomen appear normal, without evidence of masses or calcifications. Liver, spleen, and kidneys are of normal size and position. Scoliotic convexity of the lumbar spine to the left. Lumbar spondylosis with bilateral sacroiliitis. IMPRESSION: No acute abnormalities identified. Moderately distended bowel loops loaded with fecal matter, with no evidence of intestinal obstruction. Electronically signed by Winston Traore 03-22-2025 08:14 AM
--- NOTE | 2025-03-22 08:26 | Hospitalist Progress Note ---
Date of Service March 22, 2025 Assessment & Plan (1) Sepsis: (2) Acute UTI: (3) Cellulitis: Plan Ms. Barron is an 89 year old woman with past medical history remarkable for PSVT, HTN, HLD, COPD CAD, GERD, age related osteoporosis, open angle glaucoma, depression, dementia presented to [facility] ED due to altered mental status and nausea/vomiting. #Severe sepsis, possible multiple infectious sources #Acute complicated cystitis #RLE cellulitis lactate of 2.6, improved and reexamination seems to demonstrate response to fluid at this time, now afebrile RLE notes erythema, UA suspicious tick bourne labs ordered secondary to ?inclusions reported to ED procal 2.52 biofire negative MRSA nare positive follow blood cultures RLE doppler negative for DVT Received CTX and doxy on admission, now on vanco + zosyn, will cont. for now antiemetics prn KUB negat. #Hypoxia potentially multifactorial mucous plugging noted, will do nebs and IS as able, start mucinex COPD noted as well but not in exacerbation also acute illness noted---will monitor IVF #PSVT #HTN #CAD #relative hypotension, BP now improved on Diltazem and lisinopril typically in sinus, but tachycardic on arrival iso of above hold antihypertensives, resume as able given history of PSVT will have metoprolol 2.5mg prn for rates greater than 115; however, rates improving with IVF at this time monitor on tele #Dyslipidemia, goal LDL below 70 continue statin #COPD not on inhalers start mucinex levalbuterol prn DVT ppx heparin sq Dispo PCU DNR.DNI per discussion with son Admission and Anticipated Discharge Date Admission Date: March 21, 2025 Subjective Pt seen in follow up sepsis, hypoxia Pt admitted from [facility], with fever, nausea/vomiting Pt hypotensive, tachycardic on admission and still is, currently afebrile She is awake, and cooperative Reports some pain of her RLE - which is erythematous (R later calf) Denies any chest pain, shortness of breath, abdominal pain, n/v. She has been NPO She says she knows she is in the hospital. Also says she lives in [place], and her whole family is in [facility]. She does not recall residing in [facility]. Reports feeling thirsty. Will start clear liquid diet and will monitor, communicated w/ RN. Review of Systems Review of Systems: All systems reviewed & are unremarkable except as noted in Subjective Physical Exam Physical Exam: GENERAL APPEARANCE: elderly female, WD/WN in NAD, on suppl. O2 HEENT: NC, AT. MMM. EOMI, clear conjunctiva NECK: Supple HEART: mildly tachycardic, sounds regular, no murmur/regurg LUNGS: CTAB, moving air well. No crackles or wheezes are heard. ABDOMEN: soft, nontender BACK: No CVAT, no obvious deformity. EXTREMITIES: no LE edema, moves extremities NEUROLOGICAL: awake,alert, able to answer some simple questions appropriately, speech fluent, moves all 4 extremities. Skin: erythematous RLE with slight increase in swelling compared to LLE Results & Data Results & Data Vital Signs (Past 12 Hours) Vital Signs Temp Pulse Pulse Resp BP BP Pulse Ox 03/22/25 04:19 36.7 C 03/22/25 04:00 80/50 L 03/22/25 04:00 113 H 20 97 03/22/25 03:09 133 H 21 96 03/22/25 03:08 103/63 03/22/25 03:08 103/63 03/22/25 03:08 103/63 03/22/25 03:08 103/63 03/22/25 03:08 103/63 03/22/25 03:06 122 H 38 H 87 L 03/22/25 02:57 38.2 C H 03/22/25 02:00 123 H 23 97 03/22/25 00:24 03/22/25 00:00 119 H 26 H 98 03/22/25 00:00 91/54 L 03/22/25 00:00 91/54 L 03/22/25 00:00 91/54 L 03/22/25 00:00 91/54 L 03/22/25 00:00 91/54 L 03/21/25 23:25 109 H 03/21/25 23:15 111 H 24 98 03/21/25 23:14 111/58 L 03/21/25 23:14 111/58 L 03/21/25 23:14 111/58 L 03/21/25 23:14 111/58 L 03/21/25 23:14 111/58 L 03/21/25 23:12 131 H 23 95 03/21/25 23:00 83/46 L 03/21/25 23:00 83/46 L 03/21/25 23:00 83/46 L 03/21/25 23:00 83/46 L 03/21/25 23:00 112 H 21 93 03/21/25 22:00 90/54 L 03/21/25 22:00 90/54 L 03/21/25 22:00 90/54 L 03/21/25 22:00 90/54 L 03/21/25 22:00 118 H 24 94 03/21/25 21:00 109 H 23 95 03/21/25 21:00 101/63 03/21/25 21:00 101/63 03/21/25 21:00 101/63 03/21/25 21:00 101/63 03/21/25 21:00 101/63 03/21/25 20:31 37.2 C 112 H 26 H 97/71 L 95 03/21/25 20:22 97/71 L 03/21/25 20:22 97/71 L 03/21/25 20:22 97/71 L 03/21/25 20:22 97/71 L 03/21/25 20:22 97/71 L 03/21/25 20:21 122 H 23 95 O2 Del Method O2 Flow Rate 03/22/25 04:19 03/22/25 04:00 03/22/25 04:00 03/22/25 03:09 03/22/25 03:08 03/22/25 03:08 03/22/25 03:08 03/22/25 03:08 03/22/25 03:08 03/22/25 03:06 03/22/25 02:57 03/22/25 02:00 03/22/25 00:24 Oxymask 3 03/22/25 00:00 03/22/25 00:00 03/22/25 00:00 03/22/25 00:00 03/22/25 00:00 03/22/25 00:00 03/21/25 23:25 03/21/25 23:15 03/21/25 23:14 03/21/25 23:14 03/21/25 23:14 03/21/25 23:14 03/21/25 23:14 03/21/25 23:12 03/21/25 23:00 03/21/25 23:00 03/21/25 23:00 03/21/25 23:00 03/21/25 23:00 03/21/25 22:00 03/21/25 22:00 03/21/25 22:00 03/21/25 22:00 03/21/25 22:00 03/21/25 21:00 03/21/25 21:00 03/21/25 21:00 03/21/25 21:00 03/21/25 21:00 03/21/25 21:00 03/21/25 20:31 Oxymask 3 03/21/25 20:22 03/21/25 20:22 03/21/25 20:22 03/21/25 20:22 03/21/25 20:22 03/21/25 20:21 Laboratory Results 03/22/25 03/21/25 03/21/25 Range/Units 04:29 21:52 13:15 WBC 10.37 (4.8-10.8) K/ul RBC 3.58 L (4.20-5.40) M/uL Hgb 10.1 L (12.0-16.0) g/dL Hct 30.9 L (37.0-47.0) % MCV 86.3 (80.0-100.0) fL MCH 28.2 (25.0-34.0) pg MCHC 32.7 (32.0-36.0) g/dL RDW Std Deviation 49.7 H (36.4-46.3) fL RDW Coeff of Lorenzo 15.8 H (11.5-14.5) % Plt Count 133 (130-400) K/uL MPV 9.7 (9.4-12.4) fL Immature Gran % (Auto) % Neut % (Auto) % Lymph % (Auto) % Liberty % (Auto) % Eos % (Auto) % Baso % (Auto) % Neut # (Auto) (1.40-6.50) K/uL Lymph # (Auto) (1.20-3.40) K/uL Liberty # (Auto) (0.11-0.59) K/uL Eos # (Auto) (0.00-0.50) K/uL Baso # (Auto) (0.00-0.20) K/uL Immature Gran # (Auto) (0.01-0.20) K/uL Ovalocytes PT (9.0-12.0) Seconds INR (0.9-1.1) VBG pH 7.36 (7.36-7.41) VBG pCO2 31 L (38-50) mmHg VBG pO2 38 mmHg VBG HCO3 18 mmol/L VBG O2 Saturation 69.0 % VBG Base Excess -6.8 mEq/L Sodium 135 L (136-145) mmol/L Potassium 3.8 (3.5-5.1) mmol/L Chloride 112 H (98-107) mmol/L Carbon Dioxide 17 L (21-32) mmol/L Anion Gap 6 (3-11) BUN 19 (6-23) mg/dl Creatinine 1.08 (0.6-1.2) mg/dl Est Cr Clr Drug Dosing 33.1 eGFR 49.10 BUN/Creatinine Ratio 17.6 (10-20) Glucose 101 H (70-99(Fasting)) mg/dl Lactate (0.4-2.0) mmol/L Calcium 7.2 L (8.6-10.3) mg/dl Phosphorus 2.1 L (2.5-4.9) mg/dl Magnesium 1.8 (1.7-2.4) mg/dl Total Bilirubin 0.5 D (0.2-1.0) mg/dl Direct Bilirubin AST 16 (13-39) U/L ALT 9 (7-52) U/L Alkaline Phosphatase 44 (34-104) U/L Troponin I High Sens (0-14) pg/ml Total Protein 5.7 L D (6.0-8.3) gm/dl Albumin 2.8 L (3.4-5.0) gm/dl Globulin 2.9 (2.5-4.0) gm/dl Albumin/Globulin Ratio 1.0 (0.9-2) Lipase (11-82) U/L Procalcitonin (0-0.5) ng/ml Urine Color Urine Appearance (Clear) Urine pH (4.5-7.5) Ur Specific [place] (1.000-1.030) Urine Protein (Negative) Urine Glucose (UA) (Negative) Urine Ketones (Negative) Urine Blood (Negative) Urine Nitrite (Negative) Urine Bilirubin (Negative) Urine Urobilinogen (Negative) Ur Leukocyte Esterase (Negative) Urine WBC (Auto) (0-5) /hpf Urine RBC (Auto) (0-2) /hpf U Hyaline Cast (Auto) (0-2) /lpf U Epithel Cells (Auto) (0-2) /hpf Urine Bacteria (Auto) (None Seen) Urine Comment Nasal Screen MRSA (PCR) Positive A (Negative) Adenovirus (PCR) (NotDetected) Anaplasma Smear A. phagocytophilum DNA Babesia Smear Babesia microti DNA PCR B. pertussis DNA (PCR) (NotDetected) B.parapertussis DNA PCR (NotDetected) Lyme Disease Screen (Negative) C. pneumoniae DNA (PCR) (NotDetected) Coronavirus OC43 (PCR) (NotDetected) Coronavirus HKU1 (PCR) (NotDetected) Coronavirus 229E (PCR) (NotDetected) SARS-CoV-2 (PCR) (NotDetected) Coronavirus NL63 (PCR) (NotDetected) Ehrlichia DNA (PCR) Human Metapneumovir PCR (NotDetected) Influenza Type A (PCR) (NotDetected) Influenza Type B (PCR) (NotDetected) M. pneumoniae (PCR) (NotDetected) Parainfluenza 1 (PCR) (NotDetected) Parainfluenza 2 (PCR) (NotDetected) Parainfluenza 3 (PCR) (NotDetected) Parainfluenza 4 (PCR) (NotDetected) Q Fever Phase I IgG Ab Q Fever Phase I IgM Ab Q Fever Phase II IgG Ab Q Fever Phase II IgM Ab RSV (PCR) (NotDetected) Entero/Rhino (PCR) (NotDetected) Rickettsia IgG Ab Rickettsia IgM Ab Typhus Fever IgG Ab Typhus Fever IgM Ab 03/21/25 03/21/25 03/21/25 Range/Units 09:47 09:46 08:52 WBC (4.8-10.8) K/ul RBC (4.20-5.40) M/uL Hgb (12.0-16.0) g/dL Hct (37.0-47.0) % MCV (80.0-100.0) fL MCH (25.0-34.0) pg MCHC (32.0-36.0) g/dL RDW Std Deviation (36.4-46.3) fL RDW Coeff of Lorenzo (11.5-14.5) % Plt Count (130-400) K/uL MPV (9.4-12.4) fL Immature Gran % (Auto) % Neut % (Auto) % Lymph % (Auto) % Liberty % (Auto) % Eos % (Auto) % Baso % (Auto) % Neut # (Auto) (1.40-6.50) K/uL Lymph # (Auto) (1.20-3.40) K/uL Liberty # (Auto) (0.11-0.59) K/uL Eos # (Auto) (0.00-0.50) K/uL Baso # (Auto) (0.00-0.20) K/uL Immature Gran # (Auto) (0.01-0.20) K/uL Ovalocytes PT (9.0-12.0) Seconds INR (0.9-1.1) VBG pH 7.40 (7.36-7.41) VBG pCO2 30 L (38-50) mmHg VBG pO2 35 mmHg VBG HCO3 19 mmol/L VBG O2 Saturation < 60.0 % VBG Base Excess -5.0 mEq/L Sodium (136-145) mmol/L Potassium (3.5-5.1) mmol/L Chloride (98-107) mmol/L Carbon Dioxide (21-32) mmol/L Anion Gap (3-11) BUN (6-23) mg/dl Creatinine (0.6-1.2) mg/dl Est Cr Clr Drug Dosing eGFR BUN/Creatinine Ratio (10-20) Glucose (70-99(Fasting)) mg/dl Lactate 1.6 (0.4-2.0) mmol/L Calcium (8.6-10.3) mg/dl Phosphorus (2.5-4.9) mg/dl Magnesium (1.7-2.4) mg/dl Total Bilirubin (0.2-1.0) mg/dl Direct Bilirubin AST (13-39) U/L ALT (7-52) U/L Alkaline Phosphatase (34-104) U/L Troponin I High Sens (0-14) pg/ml Total Protein (6.0-8.3) gm/dl Albumin (3.4-5.0) gm/dl Globulin (2.5-4.0) gm/dl Albumin/Globulin Ratio (0.9-2) Lipase (11-82) U/L Procalcitonin (0-0.5) ng/ml Urine Color Urine Appearance (Clear) Urine pH (4.5-7.5) Ur Specific [place] (1.000-1.030) Urine Protein (Negative) Urine Glucose (UA) (Negative) Urine Ketones (Negative) Urine Blood (Negative) Urine Nitrite (Negative) Urine Bilirubin (Negative) Urine Urobilinogen (Negative) Ur Leukocyte Esterase (Negative) Urine WBC (Auto) (0-5) /hpf Urine RBC (Auto) (0-2) /hpf U Hyaline Cast (Auto) (0-2) /lpf U Epithel Cells (Auto) (0-2) /hpf Urine Bacteria (Auto) (None Seen) Urine Comment Nasal Screen MRSA (PCR) (Negative) Adenovirus (PCR) (NotDetected) Anaplasma Smear A. phagocytophilum DNA Pending Babesia Smear Babesia microti DNA PCR Pending B. pertussis DNA (PCR) (NotDetected) B.parapertussis DNA PCR (NotDetected) Lyme Disease Screen Negative (Negative) C. pneumoniae DNA (PCR) (NotDetected) Coronavirus OC43 (PCR) (NotDetected) Coronavirus HKU1 (PCR) (NotDetected) Coronavirus 229E (PCR) (NotDetected) SARS-CoV-2 (PCR) (NotDetected) Coronavirus NL63 (PCR) (NotDetected) Ehrlichia DNA (PCR) Human Metapneumovir PCR (NotDetected) Influenza Type A (PCR) (NotDetected) Influenza Type B (PCR) (NotDetected) M. pneumoniae (PCR) (NotDetected) Parainfluenza 1 (PCR) (NotDetected) Parainfluenza 2 (PCR) (NotDetected) Parainfluenza 3 (PCR) (NotDetected) Parainfluenza 4 (PCR) (NotDetected) Q Fever Phase I IgG Ab Q Fever Phase I IgM Ab Q Fever Phase II IgG Ab Q Fever Phase II IgM Ab RSV (PCR) (NotDetected) Entero/Rhino (PCR) (NotDetected) Rickettsia IgG Ab Rickettsia IgM Ab Typhus Fever IgG Ab Typhus Fever IgM Ab 03/21/25 03/21/25 Range/Units 08:16 08:00 WBC (4.8-10.8) K/ul RBC (4.20-5.40) M/uL Hgb (12.0-16.0) g/dL Hct (37.0-47.0) % MCV (80.0-100.0) fL MCH (25.0-34.0) pg MCHC (32.0-36.0) g/dL RDW Std Deviation (36.4-46.3) fL RDW Coeff of Lorenzo (11.5-14.5) % Plt Count (130-400) K/uL MPV (9.4-12.4) fL Immature Gran % (Auto) 1.1 % Neut % (Auto) 90.7 % Lymph % (Auto) 3.7 % Liberty % (Auto) 4.4 % Eos % (Auto) 0.0 % Baso % (Auto) 0.1 % Neut # (Auto) 12.14 H (1.40-6.50) K/uL Lymph # (Auto) 0.50 L (1.20-3.40) K/uL Liberty # (Auto) 0.59 (0.11-0.59) K/uL Eos # (Auto) 0.00 (0.00-0.50) K/uL Baso # (Auto) 0.01 (0.00-0.20) K/uL Immature Gran # (Auto) 0.15 (0.01-0.20) K/uL Ovalocytes 1+ PT 11.4 (9.0-12.0) Seconds INR 1.1 (0.9-1.1) VBG pH (7.36-7.41) VBG pCO2 (38-50) mmHg VBG pO2 mmHg VBG HCO3 mmol/L VBG O2 Saturation % VBG Base Excess mEq/L Sodium 134 L (136-145) mmol/L Potassium 4.4 (3.5-5.1) mmol/L Chloride 104 (98-107) mmol/L Carbon Dioxide 20 L (21-32) mmol/L Anion Gap 10 (3-11) BUN 27 H (6-23) mg/dl Creatinine 1.18 (0.6-1.2) mg/dl Est Cr Clr Drug Dosing Not Reportable eGFR 44.15 BUN/Creatinine Ratio 22.9 H (10-20) Glucose 115 H (70-99(Fasting)) mg/dl Lactate (0.4-2.0) mmol/L Calcium 9.0 (8.6-10.3) mg/dl Phosphorus (2.5-4.9) mg/dl Magnesium 1.8 (1.7-2.4) mg/dl Total Bilirubin 1.0 (0.2-1.0) mg/dl Direct Bilirubin TNP AST 20 (13-39) U/L ALT 10 (7-52) U/L Alkaline Phosphatase 63 (34-104) U/L Troponin I High Sens 11.8 (0-14) pg/ml Total Protein 7.8 (6.0-8.3) gm/dl Albumin 4.1 (3.4-5.0) gm/dl Globulin (2.5-4.0) gm/dl Albumin/Globulin Ratio (0.9-2) Lipase 14 (11-82) U/L Procalcitonin 2.52 H (0-0.5) ng/ml Urine Color Yellow Urine Appearance Clear (Clear) Urine pH 8.0 H (4.5-7.5) Ur Specific [place] 1.020 (1.000-1.030) Urine Protein 1+ H (Negative) Urine Glucose (UA) Negative (Negative) Urine Ketones Trace H (Negative) Urine Blood Negative (Negative) Urine Nitrite Negative (Negative) Urine Bilirubin Negative (Negative) Urine Urobilinogen Negative (Negative) Ur Leukocyte Esterase Trace H (Negative) Urine WBC (Auto) 0-5 (0-5) /hpf Urine RBC (Auto) 3-5 H (0-2) /hpf U Hyaline Cast (Auto) 0-2 (0-2) /lpf U Epithel Cells (Auto) 0-2 (0-2) /hpf Urine Bacteria (Auto) 4+ H (None Seen) Urine Comment Nasal Screen MRSA (PCR) (Negative) Adenovirus (PCR) Not Detected (NotDetected) Anaplasma Smear See Comment A. phagocytophilum DNA Babesia Smear See Comment Babesia microti DNA PCR B. pertussis DNA (PCR) Not Detected (NotDetected) B.parapertussis DNA PCR Not Detected (NotDetected) Lyme Disease Screen (Negative) C. pneumoniae DNA (PCR) Not Detected (NotDetected) Coronavirus OC43 (PCR) Not Detected (NotDetected) Coronavirus HKU1 (PCR) Not Detected (NotDetected) Coronavirus 229E (PCR) Not Detected (NotDetected) SARS-CoV-2 (PCR) Not Detected (NotDetected) Coronavirus NL63 (PCR) Not Detected (NotDetected) Ehrlichia DNA (PCR) Pending Human Metapneumovir PCR Not Detected (NotDetected) Influenza Type A (PCR) Not Detected (NotDetected) Influenza Type B (PCR) Not Detected (NotDetected) M. pneumoniae (PCR) Not Detected (NotDetected) Parainfluenza 1 (PCR) Not Detected (NotDetected) Parainfluenza 2 (PCR) Not Detected (NotDetected) Parainfluenza 3 (PCR) Not Detected (NotDetected) Parainfluenza 4 (PCR) Not Detected (NotDetected) Q Fever Phase I IgG Ab Pending Q Fever Phase I IgM Ab Pending Q Fever Phase II IgG Ab Pending Q Fever Phase II IgM Ab Pending RSV (PCR) Not Detected (NotDetected) Entero/Rhino (PCR) Not Detected (NotDetected) Rickettsia IgG Ab Pending Rickettsia IgM Ab Pending Typhus Fever IgG Ab Pending Typhus Fever IgM Ab Pending Medications Administered Current Inpatient Medications Acetaminophen (Acetaminophen 325 Mg Tab) 650 mg PO Q4H PRN PRN Reason: Pain or Fever Stop: 04/20/25 11:23 Last Admin: 03/22/25 03:01 Dose: 650 mg Fluoxetine HCl (Fluoxetine Hcl 20 Mg Cap) 60 mg PO QAM FARHANA Stop: 04/21/25 08:59 Heparin Sodium (Porcine) (Heparin Sod 5,000 Unit/0.5 Ml Vial) 5,000 units SQ Q8 [facility] Stop: 04/20/25 13:59 Last Admin: 03/22/25 08:23 Dose: 5,000 units Vancomycin HCl 750 mg/ Sodium (Chloride) 265 mls @ 200 mls/hr IV Q24H [facility] Stop: 03/23/25 19:59 Last Infusion: 03/21/25 22:35 Dose: Infused Piperacillin Sod/Tazobactam Sod (Zosyn) 4.5 gm in 100 mls @ 25 mls/hr IV Q8H [facility]; Protocol Stop: 03/24/25 01:59 Last Infusion: 03/22/25 07:07 Dose: Infused Sodium Chloride (Nss) 1,000 mls @ 80 mls/hr IV .[id number] [facility] Stop: 03/22/25 17:29 Last Admin: 03/22/25 05:00 Dose: 80 mls/hr Magnesium Sulfate/Dextrose (Magnesium Sulfate / D5w) 1 gm in 100 mls @ 50 mls/hr IV ONE ONE Stop: 03/22/25 09:46 Sodium Phosphate 9 mmol/ (Sodium Chloride) 253 mls @ 126.5 mls/hr IV ONE ONE Stop: 03/22/25 10:29 Levalbuterol HCl (Levalbuterol Hcl 0.63 Mg/3 Ml Neb) 0.63 mg NEB Q6H PRN; Protocol PRN Reason: Shortness Of Breath Or Wheezing Stop: 04/20/25 13:28 Melatonin (Melatonin 3 Mg Tab) 3 mg PO HS PRN PRN Reason: Sleep Stop: 04/20/25 11:23 Metoprolol Tartrate (Metoprolol Tartrate 1 Mg/Ml Vial) 2.5 mg IV Q4 PRN PRN Reason: HR >115 Stop: 04/20/25 15:59 Mirtazapine (Mirtazapine Tab 15 Mg Tab) 15 mg PO HS [facility] Stop: 04/20/25 20:59 Last Admin: 03/21/25 21:11 Dose: 15 mg Miscellaneous Information (Vancomycin Consult Active) 1 each N/A UD PRN PRN Reason: Consult Stop: 04/20/25 10:05 Ondansetron HCl (Ondansetron Inj 2 Mg/Ml 2 Ml Vial) 4 mg IV Q6H PRN PRN Reason: Nausea Stop: 04/20/25 11:23 Rosuvastatin Calcium (Rosuvastatin Calcium 20 Mg Tab) 20 mg PO QPM [facility] Stop: 04/20/25 20:59 Last Admin: 03/21/25 21:11 Dose: 20 mg Travoprost (Travoprost Z 0.004% Oph Soln 2.5 Ml Btl) 1 drops OP BID [facility] Stop: 04/20/25 20:59 Last Admin: 03/21/25 21:11 Dose: 1 drops
[2025-03-22] MEDS: MAGNESIUM SULFATE / D5W 1 GM/100 ML BAG IV ONE (08:30)
[2025-03-22] MEDS: SODIUM PHOSPHATE 9 MMOL in SODIUM CHLORIDE 0.9% 250 ML IV ONE (08:34)
--- NOTE | 2025-03-22 08:45 | Electrocardiogram Report ---
Test Reason : Blood Pressure : */* mmHG Vent. Rate : 131 BPM Atrial Rate : 250 BPM P-R Int : * ms QRS Dur : 66 ms QT Int : 312 ms P-R-T Axes : * -20 23 degrees QTcB Int : 460 ms Atrial flutter with variable A-V block Nonspecific ST abnormality Low voltage QRS Poor R-wave progression Abnormal ECG When compared with ECG of 05-Dec-2001 15:39, Atrial flutter has replaced NSR Confirmed by Lis Solares (Lexi) on 03/22/2025 8:44:45 AM Referred By: Mark miles [facility] Confirmed By: Lis Solares
[2025-03-22] MEDS ORDERED: cefTRIAXone SODIUM 2,000 MG/50 ML BAG IV SCH (09:00)
[2025-03-22] MEDS: METOPROLOL TARTRATE 25 MG TAB PO ONE (18:31)
[2025-03-22] MEDS: guaiFENesin 600 MG TABCR PO SCH (20:51)
[2025-03-22] MEDS: METOPROLOL TARTRATE 1 MG/ML VIAL IV PRN (20:52)
[2025-03-22] MEDS: MELATONIN 3 MG TAB PO PRN (20:52)
[2025-03-22] MEDS: diphenhydrAMINE Capsule 25 MG CAP PO ONE (23:14)
[2025-03-22] MEDS: diphenhydrAMINE 50 MG/ML VIAL IV STA (23:17)
[2025-03-22] MEDS: FAMOTIDINE 20MG IV PUSH 20 MG/5 ML SYR IV ONE (23:17)
[2025-03-23 05:02] LABS: Hematocrit (blood only) 37.2 % (37.0-47.0); Hemoglobin 12.0 g/dL (12.0-16.0); Immature Granulocytes # (auto) 0.06 K/uL (0.01-0.20); Immature Granulocytes % (auto) 0.7 %; Mean Corpuscular Hemoglobin 28.0 pg (25.0-34.0); Mean Corpuscular Volume 86.9 fL (80.0-100.0); Platelet Count 131 K/uL (130-400); RDW Standard Deviation 50.6 fL (36.4-46.3); Red Blood Count 4.28 M/uL (4.20-5.40); White Blood Count 8.25 K/ul (4.8-10.8)
[2025-03-23 05:16] LABS: Anion Gap 6.0 (3-11); Blood Urea Nitrogen 15.0 mg/dl (6-23); Calcium 7.8 mg/dl (8.6-10.3); Carbon Dioxide 19.0 mmol/L (21-32); Chloride 113.0 mmol/L (98-107); Creatinine Clr Calc Pharmacy 38.0 ml/min; Glucose 105.0 mg/dl (70-99(Fasting)); Magnesium 2.3 mg/dl (1.7-2.4); Potassium 4.1 mmol/L (3.5-5.1); Sodium 138.0 mmol/L (136-145)
[2025-03-23] MEDS: CEFEPIME 2000MG 2,000 MG/20 ML SYR IV SCH (08:49)
[2025-03-23] MEDS ORDERED: SODIUM PHOSPHATE 3 MMOL/1 ML INFUSION IV STA (08:52)
--- NOTE | 2025-03-23 08:57 | Hospitalist Progress Note ---
Date of Service March 23, 2025 Assessment & Plan (1) Sepsis: (2) Acute UTI: (3) Cellulitis: Plan Ms. Barron is an 89 year old woman with past medical history remarkable for PSVT, HTN, HLD, COPD CAD, GERD, age related osteoporosis, open angle glaucoma, depression, dementia presented to [facility] ED due to altered mental status and nausea/vomiting. #Severe sepsis, possible multiple infectious sources #Acute complicated cystitis #RLE cellulitis lactate of 2.6, improved and reexamination seems to demonstrate response to fluid at this time, now afebrile RLE notes erythema, UA suspicious tick bourne labs ordered secondary to ?inclusions reported to ED procal 2.52 biofire negative MRSA nare positive follow blood cultures - so far no growth RLE doppler negative for DVT Received CTX and doxy on admission, then switched to vanco + zosyn, -> overnight febrile and rash on face and R thigh, zosyn stopped, and switched to doxy + cefepime antiemetics prn KUB negat. #Hypoxia potentially multifactorial mucous plugging noted, will do nebs and IS as able, started mucinex COPD noted as well but not in exacerbation also acute illness noted---will monitor IVF #PSVT #HTN #CAD #relative hypotension, BP now improved on Diltazem and lisinopril typically in sinus, but tachycardic on arrival iso of above hold antihypertensives, resume as able given history of PSVT will have metoprolol 2.5mg prn for rates greater than 115; however, rates improving with IVF at this time monitor on tele #Dyslipidemia, goal LDL below 70 continue statin #COPD not on inhalers started mucinex levalbuterol prn DVT ppx heparin sq Dispo PCU DNR.DNI per discussion with son Admission and Anticipated Discharge Date Admission Date: March 21, 2025 Subjective Pt seen in follow up sepsis, hypoxia Pt admitted from [facility], with fever, nausea/vomiting Pt hypotensive, tachycardic on admission Now she is awake, and able to answer some questions appropriately. She can be c ooperative but other times more confused and pulling on lines requiring mittens and frequent re-orientation. Reports some pain of her RLE - which is erythematous (R calf) Denies any chest pain, shortness of breath, abdominal pain, n/v. Overnight spiked fever again and was changed to cefepime and doxy, zosyn was stopped Pt seen twice today so far. In the morning she was cooperative , later called by RN as pt more confused and less cooperative. Discussed w/ RN twice at the bedside. will utilize 1:1 sitter and will cont. to closely monitor. Review of Systems Review of Systems: All systems reviewed & are unremarkable except as noted in Subjective Physical Exam Physical Exam: GENERAL APPEARANCE: elderly female, WD/WN in NAD, on suppl. O2 HEENT: NC, AT. MMM. EOMI, clear conjunctiva NECK: Supple HEART: mildly tachycardic, sounds regular, no murmur/regurg LUNGS: CTAB, moving air well. No crackles or wheezes are heard. ABDOMEN: soft, nontender BACK: No CVAT, no obvious deformity. EXTREMITIES: no LE edema, moves extremities NEUROLOGICAL: awake,alert, able to answer some simple questions appropriately, speech fluent, moves all 4 extremities. Skin: erythematous RLE with slight increase in swelling compared to LLE Results & Data Results & Data Vital Signs (Past 12 Hours) Vital Signs Temp Pulse Pulse Pulse Resp BP BP 03/23/25 07:16 36.7 C 85 24 168/87 H 03/23/25 04:52 36.4 C L 03/23/25 04:00 110 H 24 03/23/25 00:40 03/22/25 23:59 105 H 03/22/25 22:07 37.6 C 114 H 20 03/22/25 22:06 115 H 133/94 BP Pulse Ox O2 Del Method O2 Flow Rate 03/23/25 07:16 96 Nasal Cannula 2 03/23/25 04:52 03/23/25 04:00 120/90 99 Nasal Cannula 2 03/23/25 00:40 Nasal Cannula 2 03/22/25 23:59 03/22/25 22:07 133/94 99 Nasal Cannula 2 03/22/25 22:06 Laboratory Results 03/23/25 Range/Units 04:36 WBC 8.25 (4.8-10.8) K/ul RBC 4.28 (4.20-5.40) M/uL Hgb 12.0 (12.0-16.0) g/dL Hct 37.2 (37.0-47.0) % MCV 86.9 (80.0-100.0) fL MCH 28.0 (25.0-34.0) pg MCHC 32.3 (32.0-36.0) g/dL RDW Std Deviation 50.6 H (36.4-46.3) fL RDW Coeff of Lorenzo 15.8 H (11.5-14.5) % Plt Count 131 (130-400) K/uL MPV 10.2 (9.4-12.4) fL Immature Gran % (Auto) 0.7 % Neut % (Auto) 81.1 % Lymph % (Auto) 11.6 % [place] % (Auto) 5.8 % Eos % (Auto) 0.7 % Baso % (Auto) 0.1 % Neut # (Auto) 6.68 H (1.40-6.50) K/uL Lymph # (Auto) 0.96 L (1.20-3.40) K/uL [place] # (Auto) 0.48 (0.11-0.59) K/uL Eos # (Auto) 0.06 (0.00-0.50) K/uL Baso # (Auto) 0.01 (0.00-0.20) K/uL Immature Gran # (Auto) 0.06 (0.01-0.20) K/uL Sodium 138 (136-145) mmol/L Potassium 4.1 (3.5-5.1) mmol/L Chloride 113 H (98-107) mmol/L Carbon Dioxide 19 L (21-32) mmol/L Anion Gap 6 (3-11) BUN 15 (6-23) mg/dl Creatinine 0.94 (0.6-1.2) mg/dl Est Cr Clr Drug Dosing 38.0 ml/min eGFR 58.00 BUN/Creatinine Ratio 16.0 (10-20) Glucose 105 H (70-99(Fasting)) mg/dl Calcium 7.8 L (8.6-10.3) mg/dl Phosphorus 1.9 L (2.5-4.9) mg/dl Magnesium 2.3 (1.7-2.4) mg/dl Medications Administered Current Inpatient Medications Acetaminophen (Acetaminophen 325 Mg Tab) 650 mg PO Q4H PRN PRN Reason: Pain or Fever Stop: 04/20/25 11:23 Last Admin: 03/22/25 20:51 Dose: 650 mg Fluoxetine HCl (Fluoxetine Hcl 20 Mg Cap) 60 mg PO QAM [facility] Stop: 04/21/25 08:59 Last Admin: 03/23/25 08:48 Dose: 60 mg Guaifenesin (Guaifenesin 600 Mg Tabcr) 600 mg PO Q12 FARHANA Stop: 04/21/25 20:59 Last Admin: 03/23/25 08:48 Dose: 600 mg Heparin Sodium (Porcine) (Heparin Sod 5,000 Unit/0.5 Ml Vial) 5,000 units SQ Q8 FARHANA Stop: 04/20/25 13:59 Last Admin: 03/23/25 05:32 Dose: 5,000 units Vancomycin HCl 750 mg/ Sodium (Chloride) 265 mls @ 200 mls/hr IV Q24H [facility] Stop: 03/23/25 19:59 Last Infusion: 03/22/25 22:47 Dose: Infused Doxycycline Hyclate (Vibramycin) 100 mg in 100 mls @ 50 mls/hr IV Q12H [facility] Stop: 04/05/25 20:44 Last Infusion: 03/23/25 01:57 Dose: Infused Cefepime HCl (Maxipime 2000mg) 2,000 mg in 20 mls @ 5 mls/min IV Q12H FARHANA; Protocol Stop: 03/30/25 07:59 Last Admin: 03/23/25 08:49 Dose: 5 mls/min Levalbuterol HCl (Levalbuterol Hcl 0.63 Mg/3 Ml Neb) 0.63 mg NEB Q6H PRN; Protocol PRN Reason: Shortness Of Breath Or Wheezing Stop: 04/20/25 13:28 Melatonin (Melatonin 3 Mg Tab) 3 mg PO HS PRN PRN Reason: Sleep Stop: 04/20/25 11:23 Last Admin: 03/22/25 20:52 Dose: 3 mg Metoprolol Tartrate (Metoprolol Tartrate 1 Mg/Ml Vial) 2.5 mg IV Q4 PRN PRN Reason: HR >115 Stop: 04/20/25 15:59 Last Admin: 03/22/25 20:52 Dose: 2.5 mg Mirtazapine (Mirtazapine Tab 15 Mg Tab) 15 mg PO HS [facility] Stop: 04/20/25 20:59 Last Admin: 03/22/25 20:53 Dose: 15 mg Miscellaneous Information (Vancomycin Consult Active) 1 each N/A UD PRN PRN Reason: Consult Stop: 04/20/25 10:05 Ondansetron HCl (Ondansetron Inj 2 Mg/Ml 2 Ml Vial) 4 mg IV Q6H PRN PRN Reason: Nausea Stop: 04/20/25 11:23 Rosuvastatin Calcium (Rosuvastatin Calcium 20 Mg Tab) 20 mg PO QPM FARHANA Stop: 04/20/25 20:59 Last Admin: 03/22/25 20:53 Dose: 20 mg Sodium Phosphate (Sodium Phosphate 3 Mmol/1 Ml Infusion) 12 mmol IV NOW STA Stop: 03/23/25 08:53 Travoprost (Travoprost Z 0.004% Oph Soln 2.5 Ml Btl) 1 drops OP BID FARHANA Stop: 04/20/25 20:59 Last Admin: 03/23/25 08:49 Dose: 1 drops
[2025-03-23] MEDS: SODIUM PHOSPHATE 12 MMOL in SODIUM CHLORIDE 0.9% 250 ML IV ONE (09:25)
[2025-03-23] MEDS: LORazepam Inj 0.5 MG in SYRINGE 0.25 ML IV STA (11:22)
--- NOTE | 2025-03-23 13:24 | Pharmacy Report ---
Pharmacy PK ABX Note - Date of Service March 23, 2025 - Assessment and Plan Assessment 03/23: * Day #3 vancomycin * Vanco level drawn this morning was 6.3mcg/mL which extrapolates to a subtherapeutic AUC. Will increase maintenance dose of vancomycin * MRSA nasal swab is positive, preliminary blood cultures x 2 from 03/21 are no growth, urine culture from 03/21 is pending. * Febrile still evening of 03/22, renal function returned to baseline (SCr 0.94 today), and leukocytosis has resolved, 03/21: 89 year old F receiving vancomycin, ceftriaxone and doxycycline empirically in setting of sepsis. Blood cultures pending. MRSA nasal pending. Renal function stable. Day # 1 of antimicrobial therapy. Plan Vancomycin * Vancomycin level today was 6.3mcg/mL which extrapolates to an AUC of 225 mg/L.hr * Increase maintenance dose: 1000 mg IV every 12 hours * Regimen is predicted to achieve target AUC/AFSHAN of 400-600 mg/L.hr * Will obtain another level in ~48 hours if the vancomycin is continued. cefepime 2gm iv q 12 hour doxycycline 100mg iv q 12 hour Pharmacy will continue to follow and will adjust dose/frequency as necessary. Thank you. Pharmacy has transitioned to AUC monitoring for vancomycin. AUC/AFSHAN is the preferred PK/PD target and is associated with decreased risk of nephrotoxicity compared to traditional trough targets.
[2025-03-23] MEDS: VANCOMYCIN HCL / NSS 1,000 MG/270 ML BAG IV SCH (14:51)
[2025-03-23] MEDS: METOPROLOL TARTRATE 25 MG TAB PO ONE ×2 (14:52→18:08)
[2025-03-23] MEDS: LORazepam Inj 0.25 MG in SYRINGE 0.125 ML IV ONE (22:35)
[2025-03-24 06:24] LABS: Hematocrit (blood only) 34.0 % (37.0-47.0); Hemoglobin 11.2 g/dL (12.0-16.0); Immature Granulocytes # (auto) 0.05 K/uL (0.01-0.20); Immature Granulocytes % (auto) 0.6 %; Mean Corpuscular Hemoglobin 27.6 pg (25.0-34.0); Mean Corpuscular Volume 83.7 fL (80.0-100.0); Platelet Count 157 K/uL (130-400); RDW Standard Deviation 47.3 fL (36.4-46.3); Red Blood Count 4.06 M/uL (4.20-5.40); White Blood Count 8.09 K/ul (4.8-10.8)
[2025-03-24 06:50] LABS: Anion Gap 9.0 (3-11); Blood Urea Nitrogen 15.0 mg/dl (6-23); Calcium 7.7 mg/dl (8.6-10.3); Carbon Dioxide 18.0 mmol/L (21-32); Chloride 111.0 mmol/L (98-107); Creatinine Clr Calc Pharmacy 44.1 ml/min; Glucose 99.0 mg/dl (70-99(Fasting)); Potassium 3.7 mmol/L (3.5-5.1); Sodium 138.0 mmol/L (136-145)
[2025-03-24] MEDS: LEVALBUTEROL HCL 0.63 MG/3 ML NEB NEB PRN (07:08)
[2025-03-24 07:12] LABS: Magnesium 2.0 mg/dl (1.7-2.4)
[2025-03-24] MEDS ORDERED: POTASSIUM PHOS 3 MMOL/1 ML INFUSION IV STA (07:59)
--- NOTE | 2025-03-24 08:19 | XRay Report ---
EXAM: XR chest 1V portable CLINICAL HISTORY: sob TECHNIQUE: An X-ray image of the chest was obtained in AP projection. COMPARISON: 03/21/2025 XR chest 1V portable FINDINGS: Pulmonary Parenchyma: Non-homogeneous opacity is identified in the right mid lower zone, silhouetting the right hemidiaphragm and right heart border, and extending along the right lateral chest wall, suggestive of pneumonic consolidation. New development. Opacity is also identified in the left lower zone, obliterating the left CP angle, suggestive of pleural effusion. New development. Heart and Mediastinum: Heart size and shape are normal. No mediastinal widening or masses. No hilar or mediastinal lymphadenopathy. Bony Thorax: Bony thorax appears intact without fractures or deformities. Soft Tissues: Soft tissues overlying the chest wall are unremarkable. IMPRESSION: 1. Imaging findings are suggestive of an infective etiology: pneumonic consolidation of the right middle and lower zones with bilateral pleural effusion. New development. 2. A CT of the chest would be more helpful for further evaluation. 3. In comparison with the patient's prior X-ray, there is obvious progression of the disease process. Electronically signed by Winston Traore 03-24-2025 08:18 AM
[2025-03-24] MEDS: POTASSIUM PHOSPHATE 15 MMOL in SODIUM CHLORIDE 0.9% 250 ML IV ONE (09:14)
[2025-03-24] MEDS: FUROSEMIDE 40 MG/4 ML VIAL IV ONE (09:52)
[2025-03-24] MEDS: FUROSEMIDE INJ 20 MG/2 ML VIAL IV ONE ×2 (09:52)
--- NOTE | 2025-03-24 10:40 | Hospitalist Progress Note ---
Date of Service March 24, 2025 Assessment & Plan (1) Sepsis: (2) Acute UTI: (3) Cellulitis: Plan Ms. Barron is an 89 year old woman with past medical history remarkable for PSVT, HTN, HLD, COPD CAD, GERD, age related osteoporosis, open angle glaucoma, depression, dementia presented to [facility] ED due to altered mental status and nausea/vomiting. #Severe sepsis, possible multiple infectious sources #Acute complicated cystitis #RLE cellulitis -Sepsis resolved -Culture data negative -MRSA screen positive Plan -Planning to deescalate abx regimen today however given new R lung infiltrates as below, will continue empiric vanc, cefepime, doxy for now through 03/27 -Anticipate back to [facility] when medically ready (off O2) -Follow culture data -Follow renal function, vanc levels while on vanc #Hypoxia -Personally reviewed CXR images 03/24, new RML and RLL consolidations -Requiring 3L NC -BNP elevated -Suspect this is secondary to acute HFpEF from IVF rather than PNA as she is already on 3 broad spectrum antibiotics Plan -S/p IV lasix this AM. monitor response -Monitor IOs, renal function -Recheck Biofire for viral PNA #HTN -BP now elevated, resume cardizem but at lower 120mg daily dose -Hold lisinopril for now #Hypophosphatemia -Replace and follow #Dyslipidemia, goal LDL below 70 continue statin #COPD not on inhalers started mucinex levalbuterol prn DVT ppx heparin sq Dispo PCU DNR.DNI per discussion with son Marci spent a total of 54 minutes coordinating, documenting, and providing care for this patient excluding time spent in the performance of separately billed services. This included personally reviewing all current laboratories and imaging studies, medical reconciliation, outpatient chart review and discussion with specialists Admission and Anticipated Discharge Date Admission Date: March 21, 2025 Subjective pleasantly confused. she denies any specific complaint this morning Physical Exam Physical Exam: Vitals and labs reviewed General: chronically ill appearing. elderly. NAD HEENT: EOMI, PERRLA Neck: Supple Cardiac: RRR no rubs gallops or murmurs Lungs: R lung rhonchi. no rales wheez or distress Abd: S NT ND BS positive : Hernandez MSK: Full ROM. No obvious deformities Ext: No Edema cyanosis Skin: Warm, Dry Neuro: AO to person only. no focal deficits Psych: calm Results & Data Results & Data Vital Signs (Past 12 Hours) Vital Signs Temp Pulse Pulse Resp BP Pulse Ox O2 Del Method 03/24/25 07:19 37.0 C 119 H 22 160/99 H 94 Nasal Cannula 03/24/25 07:09 118 H 20 94 Nasal Cannula 03/24/25 04:00 36.2 C L 132 H 18 154/84 H 93 Nasal Cannula O2 Flow Rate 03/24/25 07:19 3 03/24/25 07:09 3 03/24/25 04:00 3 Laboratory Results Abnormal lab results 03/23/25 03/24/25 03/24/25 Range/Units 12:02 05:51 09:26 RBC 4.06 L (4.20-5.40) M/uL Hgb 11.2 L (12.0-16.0) g/dL Hct 34.0 L (37.0-47.0) % RDW Std Deviation 47.3 H (36.4-46.3) fL RDW Coeff of Lorenzo 15.5 H (11.5-14.5) % Lymph # (Auto) 1.19 L (1.20-3.40) K/uL [place] # (Auto) 0.69 H (0.11-0.59) K/uL Chloride 111 H (98-107) mmol/L Carbon Dioxide 18 L (21-32) mmol/L Calcium 7.7 L (8.6-10.3) mg/dl Phosphorus 1.2 L* (2.5-4.9) mg/dl B-Natriuretic Peptide 990 H (0-100) pg/ml Random Vancomycin 6.3 L (10-20) mcg/ml
[2025-03-24 12:29] LABS: Chlamydia pneumoniae PCR Not Detected (NotDetected); Coronavirus 229E PCR Not Detected (NotDetected); Coronavirus CoV-2 (COVID19)PCR Not Detected (NotDetected); Coronavirus HKU1 PCR Not Detected (NotDetected); Coronavirus NL63 PCR Not Detected (NotDetected); Coronavirus OC43PCR Not Detected (NotDetected); Human Metapneumovirus PCR Not Detected (NotDetected); Parainfluenza Virus 1 PCR Not Detected (NotDetected); Parainfluenza Virus 2 PCR Not Detected (NotDetected); Parainfluenza Virus 3 PCR Not Detected (NotDetected); Parainfluenza Virus 4 PCR Not Detected (NotDetected); Respiratory Syncytial VirusPCR Not Detected (NotDetected); Rhinovirus/Enterovirus PCR Not Detected (NotDetected)
[2025-03-24] MEDS: HALOPERIDOL LACTATE 5 MG/ML 1 ML VIAL IV PRN (14:44)
[2025-03-24] MEDS: LACTATED RINGER'S 1,000 ML IV ONE (23:07)
[2025-03-25 06:30] LABS: Hematocrit (blood only) 33.7 % (37.0-47.0); Hemoglobin 11.6 g/dL (12.0-16.0); Mean Corpuscular Hemoglobin 28.3 pg (25.0-34.0); Mean Corpuscular Volume 82.2 fL (80.0-100.0); Platelet Count 182 K/uL (130-400); RDW Standard Deviation 46.2 fL (36.4-46.3); Red Blood Count 4.10 M/uL (4.20-5.40); White Blood Count 7.87 K/ul (4.8-10.8)
[2025-03-25 07:14] LABS: Anion Gap 8.0 (3-11); Blood Urea Nitrogen 14.0 mg/dl (6-23); Calcium 7.8 mg/dl (8.6-10.3); Carbon Dioxide 20.0 mmol/L (21-32); Chloride 111.0 mmol/L (98-107); Creatinine Clr Calc Pharmacy 45.8 ml/min; Glucose 92.0 mg/dl (70-99(Fasting)); Potassium 3.5 mmol/L (3.5-5.1); Sodium 139.0 mmol/L (136-145)
--- NOTE | 2025-03-25 08:35 | Electrocardiogram Report ---
Test Reason : Blood Pressure : */* mmHG Vent. Rate : 110 BPM Atrial Rate : * BPM P-R Int : * ms QRS Dur : 68 ms QT Int : 356 ms P-R-T Axes : * 11 30 degrees QTcB Int : 481 ms Atrial fibrillation with rapid ventricular response Low voltage QRS Abnormal ECG When compared with ECG of 21-Mar-2025 07:49, ST no longer depressed in Inferior leads T wave inversion no longer evident in Inferior leads Confirmed by Lis Solares (Lexi) on 03/25/2025 8:35:12 AM Referred By: Mark Mcdonnell Confirmed By: Lis Solares
[2025-03-25] MEDS ORDERED: POTASSIUM PHOS 3 MMOL/1 ML INFUSION IV SCH (09:00)
--- NOTE | 2025-03-25 10:06 | Hospitalist Progress Note ---
Date of Service March 25, 2025 Assessment & Plan (1) Sepsis: (2) Acute UTI: (3) Cellulitis: Plan Ms. Barron is an 89 year old woman with past medical history remarkable for PSVT, afib HTN, HLD, COPD CAD, GERD, age related osteoporosis, open angle glaucoma, depression, dementia presented to [facility] ED due to altered mental status and nausea/vomiting. #Severe sepsis, possible multiple infectious sources #Acute complicated cystitis #RLE cellulitis -Sepsis resolved -Culture data negative -MRSA screen positive Plan -Planning to deescalate abx regimen today however given new R lung infiltrates as below, will continue empiric vanc, cefepime, doxy for now through 03/27 -Anticipate back to [facility] care facility when medically ready -Follow culture data -Follow renal function, vanc levels while on vanc #Afib RVR -HR 120s -History of pAfib. -Very poor candidate for AC. risks of bleeding outweigh stroke reduction benefits Plan -Resume home cardizem 180mg for RC -Continue telemetry -Add IV lopressor HR >120 #GOC discussion -03/24 discussed with YADIRA who makes medical decisions for patient. she is aspirating and risks/benefits were discussed and she was ordered comfort foods. Did not want PEG tube -03/25- D/w DIL again today, explained patient's poor prognosis and multiple active medical issues. YADIRA is open to hospice discussion. Reached out to palliative care and they will see patient #Hypoxia -Personally reviewed CXR images 03/24, new RML and RLL consolidations -BNP elevated -Suspect this is secondary to acute HFpEF from IVF rather than PNA as she is already on 3 broad spectrum antibiotics -Resolved following IV lasix on 03/24 -Resolved. Off O2 today -Biofire neg #HTN -BP remains elevated, increase cardizem back to home dose of 180mg daily due to RVR -Hold lisinopril for now #Hypophosphatemia -Replace and follow #Dyslipidemia, goal LDL below 70 continue statin #COPD not on inhalers started mucinex levalbuterol prn DVT ppx heparin sq Dispo PCU DNR.DNI per discussion with son I spent a total of 60 minutes coordinating, documenting, and providing care for this patient excluding time spent in the performance of separately billed services. This included personally reviewing all current laboratories and imaging studies, medical reconciliation, outpatient chart review and discussion with specialists Admission and Anticipated Discharge Date Admission Date: March 21, 2025 Subjective pleasantly confused. she denies any specific complaint this morning Physical Exam Physical Exam: Vitals and labs reviewed General: chronically ill appearing. elderly. NAD HEENT: EOMI, PERRLA Neck: Supple Cardiac: tachy, irregular Lungs: R lung rhonchi. no rales wheez or distress Abd: S NT ND BS positive : Hernandez MSK: Full ROM. No obvious deformities Ext: No Edema cyanosis Skin: Warm, Dry Neuro: AO to person only. no focal deficits Psych: calm Results & Data Results & Data Vital Signs (Past 12 Hours) Vital Signs Temp Pulse Pulse Resp BP BP Pulse Ox 03/25/25 08:03 36.7 C 123 H 16 145/85 H 92 03/25/25 02:39 37.1 C 120 H 22 119/88 92 03/24/25 23:03 37.0 C 111 H 20 110/66 96 O2 Del Method O2 Flow Rate 03/25/25 08:03 Room Air 03/25/25 02:39 Nasal Cannula 2 03/24/25 23:03 Nasal Cannula 2 Laboratory Results Abnormal lab results 03/24/25 03/25/25 Range/Units 09:26 05:49 RBC 4.10 L (4.20-5.40) M/uL Hgb 11.6 L (12.0-16.0) g/dL Hct 33.7 L (37.0-47.0) % RDW Coeff of Lorenzo 15.2 H (11.5-14.5) % Chloride 111 H (98-107) mmol/L Carbon Dioxide 20 L (21-32) mmol/L Calcium 7.8 L (8.6-10.3) mg/dl Phosphorus 1.2 L* (2.5-4.9) mg/dl B-Natriuretic Peptide 990 H (0-100) pg/ml
--- NOTE | 2025-03-25 11:13 | Pharmacy Report ---
Pharmacy PK ABX Note - Date of Service March 25, 2025 - Assessment and Plan Assessment 03/25: Vancomycin day 5, reviewed vancomycin level, predicting therapeutic AUC/AFSHAN, continue current regimen. Per hospitalist notes, planning de-escalation but new R lung infiltrates noted on CXR from yesterday. Reassess in AM. Renal function stable, continue to monitor. 03/23: * Day #3 vancomycin * Vanco level drawn this morning was 6.3mcg/mL which extrapolates to a subtherapeutic AUC. Will increase maintenance dose of vancomycin * MRSA nasal swab is positive, preliminary blood cultures x 2 from 03/21 are no growth, urine culture from 03/21 is pending. * Febrile still evening of 03/22, renal function returned to baseline (SCr 0.94 today), and leukocytosis has resolved, 03/21: 89 year old F receiving vancomycin, ceftriaxone and doxycycline empirically in setting of sepsis. Blood cultures pending. MRSA nasal pending. Renal function stable. Day # 1 of antimicrobial therapy. Plan Vancomycin * Vancomycin level today was 16.1 mcg/mL which extrapolates to an AUC of 484 mg/L.hr * Continue maintenance dose: 1000 mg IV every 12 hours * Regimen is predicted to achieve target AUC/AFSHAN of 400-600 mg/L.hr * Will obtain another level in ~48 hours if the vancomycin is continued. cefepime 2gm iv q 12 hour doxycycline 100mg iv q 12 hour Pharmacy will continue to follow and will adjust dose/frequency as necessary. Thank you. Pharmacy has transitioned to AUC monitoring for vancomycin. AUC/AFSHAN is the preferred PK/PD target and is associated with decreased risk of nephrotoxicity compared to traditional trough targets.
[2025-03-25] MEDS: POTASSIUM PHOSPHATE 24 MMOL in SODIUM CHLORIDE 0.9% 500 ML IV SCH (11:25)
--- NOTE | 2025-03-25 15:07 | Communication Note ---
Date of Service: March 25, 2025 Brief Pall Med Note Consult received/appreciated Chart reviewed/case reviewed with primary attending No acute /urgent needs today - family desiring discussion re hospice /symptom mgt vs palliative care/?transitional care I am in clinic today and will plan to see pt tomorrow morning. Thank you for allowing us to participate in the ongoing care of this patient. Please page with any additional concerns. Sheila Cage DNP Director, Palliative Medicine
[2025-03-26 06:22] LABS: Hematocrit (blood only) 34.4 % (37.0-47.0); Hemoglobin 11.7 g/dL (12.0-16.0); Mean Corpuscular Hemoglobin 28.2 pg (25.0-34.0); Mean Corpuscular Volume 82.9 fL (80.0-100.0); Platelet Count 207 K/uL (130-400); RDW Standard Deviation 46.8 fL (36.4-46.3); Red Blood Count 4.15 M/uL (4.20-5.40); White Blood Count 5.76 K/ul (4.8-10.8)
[2025-03-26 06:56] LABS: Anion Gap 8.0 (3-11); Blood Urea Nitrogen 11.0 mg/dl (6-23); Calcium 7.9 mg/dl (8.6-10.3); Carbon Dioxide 19.0 mmol/L (21-32); Chloride 113.0 mmol/L (98-107); Creatinine Clr Calc Pharmacy 52.5 ml/min; Glucose 87.0 mg/dl (70-99(Fasting)); Potassium 3.9 mmol/L (3.5-5.1); Sodium 140.0 mmol/L (136-145)
[2025-03-26 07:24] VITALS: RESP 18; O2SAT 94
--- NOTE | 2025-03-26 09:33 | Palliative Care Consultation ---
Date of Consultation March 26, 2025 History of Present Illness Reason for Consultation: goals of care Requesting Physician: Isidro Lane DO Attending Physician: Isidro Lane DO History of Present Illness Ms. Barron is an 89 year old woman with past medical history remarkable for PSVT, HTN, HLD, COPD CAD, GERd, age related osteoporosis, open angle glaucoma, depression, dementia presented to [facility] ED due to altered mental status and nausea/vomiting. Per [facility] documentation, patient is incontinent, requires assistance with bathing, dressing, transfers, toileting, and eating, however reportedly ambulates independently. Though unable to reach nursing at [facility], the [id number] was able to report her understanding of what prompted EMS call. Virginie (YADIRA) reports that she received a call two days prior about a fall, in which no injuries were sustained reportedly and patient was otherwise at baseline. It seems that this morning, the patient was abruptly nauseated and vomited--unable to keep things down like Pedialyte or chopra, prompting presentation to ED. Allergies Allergy/AdvReac Type Severity Reaction Status Date / Time No Known Drug Allergies Allergy Unknown . Verified 10/31/22 09:06 Home Medications Medication Instructions Recorded Confirmed Type alendronate 70 mg tablet 70 mg PO WK 10/31/22 03/21/25 History diltiazem HCl 180 mg capsule,24 180 mg PO QAM 10/31/22 03/21/25 History hr,extended release dorzolamide 22.3 mg-timolol 6.8 1 drp ophthalmic (eye) BID 10/31/22 03/21/25 History mg/mL eye drops fluoxetine 40 mg capsule 60 mg PO QAM 10/31/22 03/21/25 History lisinopril 2.5 mg tablet 2.5 mg PO QAM 10/31/22 03/21/25 History rosuvastatin 20 mg tablet 20 mg PO QPM 10/31/22 03/21/25 History travoprost 0.004 % eye drops 1 drp ophthalmic (eye) BID 10/31/22 03/21/25 History acetaminophen 325 mg tablet 650 mg PO Q4H PRN pain/temp 03/21/25 03/21/25 History (Tylenol) fluocinonide 0.05 % topical cream 1 applic topical BID PRN skin 03/21/25 03/21/25 History issues latanoprostene bunod 0.024 % eye 1 drp OPB HS 03/21/25 03/21/25 History drops (Vyzulta) mineral oil-hydrophil petrolat 1 applic topical BID 03/21/25 03/21/25 History topical ointment mirtazapine 15 mg tablet 15 mg PO HS 03/21/25 03/21/25 History naproxen 250 mg tablet 250 mg PO BID PRN Inflammation 03/21/25 03/21/25 History silver chloride 1 ea topical DAILY 03/21/25 03/21/25 History Patient History Medical History (Updated 03/21/25 @ 12:21 by Patti López) History of kidney stones Osteoporosis Osteoarthritis GERD (gastroesophageal reflux disease) Glaucoma Depression Poor historian HLD (hyperlipidemia) HTN (hypertension) Irregular heart rhythm Follows with Dr. Rasheed COPD (chronic obstructive pulmonary disease) Surgical History History of cataract surgery History of cystoscopy with stone extraction History of colonoscopy History of cardiac radiofrequency ablation Social History Smoking Status: Unknown if ever smoked Second Hand Exposure: Yes (hx); Do You Dip or Chew Tobacco: No; Hx Alcohol Use: No Hx Substance Use: No Preferred Language: Syrian Communication Ability: Impaired Strawberry Grower Required: No Beliefs That Will Affect Care: None Current Living Situation: Intermediate Feels Safe at Home: Yes Assistive Devices: None Results & Data Vital Signs (Past 12 Hours) Vital Signs Temp Pulse Pulse Pulse Resp BP Pulse Ox 03/26/25 08:56 126 H 03/26/25 08:56 03/26/25 07:23 37.3 C 126 H 18 152/88 H 94 03/26/25 02:19 36.6 C 113 H 20 147/81 H 96 03/25/25 22:53 123 H O2 Del Method O2 Flow Rate 03/26/25 08:56 03/26/25 08:56 Room Air 03/26/25 07:23 Room Air 03/26/25 02:19 Nasal Cannula 2 03/25/25 22:53 PG Care Time/CCT Total # of Minutes Spent Total Time Spent with Patient: Total time spent is greater than 50% in coordination of care (as documented) at patient's floor/unit and/or counseling patient: Coding
--- NOTE | 2025-03-26 11:02 | Hospitalist Progress Note ---
Date of Service March 26, 2025 Assessment & Plan (1) Sepsis: (2) Acute UTI: (3) Cellulitis: Plan Ms. Barron is an 89 year old woman with past medical history remarkable for PSVT, afib HTN, HLD, COPD CAD, GERD, age related osteoporosis, open angle glaucoma, depression, dementia presented to [facility] ED due to altered mental status and nausea/vomiting. #Severe sepsis, possible multiple infectious sources #Acute complicated cystitis #RLE cellulitis -Sepsis resolved -Culture data negative -MRSA screen positive Plan -Continue empiric vanc, cefepime, doxy through 03/27 -[facility] medically ready -Follow culture data -Follow renal function, vanc levels while on vanc -Voiding trial today #Afib RVR -HR 120s -History of pAfib. -Very poor candidate for AC. risks of bleeding outweigh stroke reduction benefits Plan -Resume home cardizem 180mg for RC -Continue telemetry -Add IV lopressor HR >120 #GOC discussion -03/24 discussed with DIL who makes medical decisions for patient. she is aspirating and risks/benefits were discussed and she was ordered comfort foods. Did not want PEG tube -03/25- D/w DIL again today, explained patient's poor prognosis and multiple active medical issues. DIL is open to hospice discussion. Reached out to palliative care and they will see patient -03/26- Palliative care to evaluate today, appreciate input #Hypoxia -Personally reviewed CXR images 03/24, new RML and RLL consolidations -BNP elevated -Suspect this is secondary to acute HFpEF from IVF rather than PNA as she is already on 3 broad spectrum antibiotics -Resolved following IV lasix on 03/24 -Resolved. Off O2 today -Biofire neg #HTN -BP remains elevated, increase cardizem back to home dose of 180mg daily due to RVR -Hold lisinopril for now #Hypophosphatemia -improving -Replace and follow #Dyslipidemia, goal LDL below 70 continue statin #COPD not on inhalers started mucinex levalbuterol prn DVT ppx heparin sq Dispo PCU DNR.DNI per discussion with son I spent a total of 51 minutes coordinating, documenting, and providing care for this patient excluding time spent in the performance of separately billed services. This included personally reviewing all current laboratories and imaging studies, medical reconciliation, outpatient chart review and discussion with specialists Admission and Anticipated Discharge Date Admission Date: March 21, 2025 Subjective pleasantly confused. she denies any specific complaint this morning Physical Exam Physical Exam: Vitals and labs reviewed General: chronically ill appearing. elderly. NAD HEENT: EOMI, PERRLA Neck: Supple Cardiac: tachy, irregular Lungs: R lung rhonchi. no rales wheez or distress Abd: S NT ND BS positive : Hernandez MSK: Full ROM. No obvious deformities Ext: No Edema cyanosis Skin: Warm, Dry Neuro: AO to person only. no focal deficits Psych: calm Results & Data Results & Data Vital Signs (Past 12 Hours) Vital Signs Temp Pulse Pulse Pulse Resp BP Pulse Ox 03/26/25 08:56 126 H 03/26/25 08:56 03/26/25 07:23 37.3 C 126 H 18 152/88 H 94 03/26/25 02:19 36.6 C 113 H 20 147/81 H 96 O2 Del Method O2 Flow Rate 03/26/25 08:56 03/26/25 08:56 Room Air 03/26/25 07:23 Room Air 03/26/25 02:19 Nasal Cannula 2 Laboratory Results Abnormal lab results 03/26/25 Range/Units 05:49 RBC 4.15 L (4.20-5.40) M/uL Hgb 11.7 L (12.0-16.0) g/dL Hct 34.4 L (37.0-47.0) % RDW Std Deviation 46.8 H (36.4-46.3) fL RDW Coeff of Lorenzo 15.4 H (11.5-14.5) % Chloride 113 H (98-107) mmol/L Carbon Dioxide 19 L (21-32) mmol/L Calcium 7.9 L (8.6-10.3) mg/dl Phosphorus 2.3 L D (2.5-4.9) mg/dl
--- NOTE | 2025-03-26 11:19 | Palliative Care Consultation ---
Date of Consultation March 26, 2025 Assessment & Plan (1) Dementia with behavioral disturbance: Begin trial of Zyprexa 2.5mg IM BID x 2-3 days, once calmer, transition to Zyprexa ODT 2.5mg PO Daily to BID depending on needs. Titrate dose up in 2.5mg increments q2-3 days until desired response is achieved. detention will not give Haldol on a schedule/it is considered a chemical restraint. (2) Agitation due to dementia: see #1 above (3) Weakness generalized: adv dementia, progressive decline, medical frailty + adv age there is no recoverable functionality for this end stage progressive neurological failure (4) Altered mental status: (5) Discussion about advance care planning held with family member: I had a 30min ACP discussion with Virginie Barron/Mera, held by teleconf as Virginie is unable to come in today. Raisa lacks capacity due to advanced dementia. Virginie shares that the family has decided they would like a SUPERVISOR WET ROOM plan with hospice at [facility]; Virginie would like pt at [facility] with [facility], whom she has had prior good hospice experiences with in the past. 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 They do not want return to hospital - family will pay OOP for bed and board fees unless SNF can find a way to skill her for EOL which I believe could be possible with her wound care needs?. I provided education about the hospice benefit: an interdisciplinary program offered by nurses, nurses aides, social workers, chaplains and a manager medical for patients with a terminal condition and a life expectancy of less than 6 months. This is covered by Medicare at 100%/no out of pocket expense to patient and all meds/supplies needed by patient for the reason they are on hospice are paid for/covered by hospice. The goal is assure quality of life of the patient in their home setting (home, long-term, inpatient hospice setting) by providing symptoms management, psychosocial and spiritual support. However, they cannot offer 24 hours care and if the family is unable to provide that care, they will have to consider personal care with out of pocket cost vs. long-term placement. We discussed the goals of hospice as a patient service and the goals of care; we discussed EOL trajectories and transitions manuela the emotional impact of realizing mortality as a concrete reali ty from prior abstract considerations. Pt was reassured that no matter where they are along this trajectory, they are not alone - their medical team will remain by their side through their journey. Discussed the pros/cons of accepting help when especially weakened and distressed by pain-which would also help provide relief/decrease caregiver burden/strain. Plan of care: The family do not want pt returning to hospital/no aggressive care and they do permissive aspiration to allow patient PO for comfort/pleasure. Agitation mgt: Virginie is in agreement with for a trial of low dose Zyprexa - IM x 2 days then [facility] agitation is under control. I have written SUPERVISOR WET ROOM orders and updated care teams. Advised Virginie I am dermatological surgeon this weekend and can be paged for any acute needs or med modification. I am off next week Sat - ., and Elle Hutton from my team will be covering. (6) Palliative care by specialist: Introduced Palliative Medicine and explained our role in patient's care. Patient and/or family were receptive to palliative services for goals of care discussions. Reviewed we are different from hospice, a home health nurse visiting service. (7) Need for comfort care: Plan As above. Moved to [facility] Family desire SNF [place] [facility] with [facility], they are able to pay OOP for room/board fees per DIL/SDM Virginie, though it is possible patient's unhealable wounds/chronic cellulitis care may be a skillable need that can get her stay covered along with addition of hospice? Pall med will follow for symptom mgt needs. Please page me over the weekend if acute issues arise. I am out of office next Sat-, Mari CORONA from my team will be covering. Thank you for allowing us to participate in the ongoing care of this patient. Please page with any additional concerns. Sheila Cage DNP Director, Palliative Medicine History of Present Illness Reason for Consultation: hospice eval/family request Attending Physician: Isidro Lane, History of Present Illness Raisa is 89yo with adv dementia, resides at [facility]. Present[facility] ED due to altered mental status and nausea/vomiting, found to have sepsis, possible multiple infectious sources --> acute complicated cystitis + RLE cellulitis, now improved PMH: PSVT, afib HTN, HLD, COPD CAD, GERD, age related osteoporosis, open angle glaucoma, depression, advanced dementia Dtr in law Rachel is her SDM. Virginie provides hx that Raisa's dementia had been worsening for years but she needed placement about a year ago when it became too difficult to manage her at home. She was not safe and needed ATC care, she was found wandering outside in winter weather at night, confused and lethargic. Allergies Allergy/AdvReac Type Severity Reaction Status Date / Time No Known Drug Allergies Allergy Unknown . Verified 10/31/22 09:06 Home Medications Medication Instructions Recorded Confirmed Type alendronate 70 mg tablet 70 mg PO WK 10/31/22 03/21/25 History diltiazem HCl 180 mg capsule,24 180 mg PO QAM 10/31/22 03/21/25 History hr,extended release dorzolamide 22.3 mg-timolol 6.8 1 drp ophthalmic (eye) BID 10/31/22 03/21/25 History mg/mL eye drops fluoxetine 40 mg capsule 60 mg PO QAM 10/31/22 03/21/25 History lisinopril 2.5 mg tablet 2.5 mg PO QAM 10/31/22 03/21/25 History rosuvastatin 20 mg tablet 20 mg PO QPM 10/31/22 03/21/25 History travoprost 0.004 % eye drops 1 drp ophthalmic (eye) BID 10/31/22 03/21/25 History acetaminophen 325 mg tablet 650 mg PO Q4H PRN pain/temp 03/21/25 03/21/25 History (Tylenol) fluocinonide 0.05 % topical cream 1 applic topical BID PRN skin 03/21/25 03/21/25 History issues latanoprostene bunod 0.024 % eye 1 drp OPB HS 03/21/25 03/21/25 History drops (Vyzulta) mineral oil-hydrophil petrolat 1 applic topical BID 03/21/25 03/21/25 History topical ointment mirtazapine 15 mg tablet 15 mg PO HS 03/21/25 03/21/25 History naproxen 250 mg tablet 250 mg PO BID PRN Inflammation 03/21/25 03/21/25 History silver chloride 1 ea topical DAILY 03/21/25 03/21/25 History Patient History Medical History (Updated 03/26/25 @ 11:12 by Laura Cage DNP) History of kidney stones Osteoporosis Osteoarthritis GERD (gastroesophageal reflux disease) Glaucoma Depression Poor historian HLD (hyperlipidemia) HTN (hypertension) Irregular heart rhythm Follows with Dr. Rasheed COPD (chronic obstructive pulmonary disease) Surgical History History of cataract surgery History of cystoscopy with stone extraction History of colonoscopy History of cardiac radiofrequency ablation Social History Smoking Status: Unknown if ever smoked Second Hand Exposure: Yes (hx); Do You Dip or Chew Tobacco: No; Hx Alcohol Use: No Hx Substance Use: No Preferred Language: German Communication Ability: Impaired Drug Room Operator Required: No Beliefs That Will Affect Care: None Current Living Situation: Prison Feels Safe at Home: Yes Assistive Devices: None Review of Systems Review of Systems: Unobtainable due to cognitive status Physical Exam Physical Exam: Bitemp wasting, chronically ill appearing. elderly Sl restless Perrla neck no stridor Lyngs dim, few rhonchi R>L CV s1s2 Abd soft, NTP, no grimacing +Hernandez Gen weakness, agitated at times with exam no obvious c/c/e Skin pale, warm Confused and unable to follow commands Results & Data Vital Signs (Past 12 Hours) Vital Signs Temp Pulse Pulse Pulse Resp BP Pulse Ox 03/26/25 08:56 126 H 03/26/25 08:56 03/26/25 07:23 37.3 C 126 H 18 152/88 H 94 03/26/25 02:19 36.6 C 113 H 20 147/81 H 96 O2 Del Method O2 Flow Rate 03/26/25 08:56 03/26/25 08:56 Room Air 03/26/25 07:23 Room Air 03/26/25 02:19 Nasal Cannula 2 Laboratory Results 03/26/25 03/25/25 03/25/25 Range/Units 05:49 10:13 05:49 WBC 5.76 7.87 (4.8-10.8) K/ul RBC 4.15 L 4.10 L (4.20-5.40) M/uL Hgb 11.7 L 11.6 L (12.0-16.0) g/dL POC Hgb (12.0-16.0) g/dl Hct 34.4 L 33.7 L (37.0-47.0) % POC Hct (37-47) % MCV 82.9 82.2 (80.0-100.0) fL MCH 28.2 28.3 (25.0-34.0) pg MCHC 34.0 34.4 (32.0-36.0) g/dL RDW Std Deviation 46.8 H 46.2 (36.4-46.3) fL RDW Coeff of Lorenzo 15.4 H 15.2 H (11.5-14.5) % Plt Count 207 182 (130-400) K/uL MPV 10.1 10.5 (9.4-12.4) fL Immature Gran % (Auto) % Neut % (Auto) % Lymph % (Auto) % Milam % (Auto) % Eos % (Auto) % Baso % (Auto) % Neut # (Auto) (1.40-6.50) K/uL Lymph # (Auto) (1.20-3.40) K/uL Milam # (Auto) (0.11-0.59) K/uL Eos # (Auto) (0.00-0.50) K/uL Baso # (Auto) (0.00-0.20) K/uL Immature Gran # (Auto) (0.01-0.20) K/uL Ovalocytes PT (9.0-12.0) Seconds INR (0.9-1.1) VBG pH (7.36-7.41) VBG pCO2 (38-50) mmHg VBG pO2 mmHg VBG HCO3 mmol/L VBG O2 Saturation % VBG Base Excess mEq/L POC Sodium (135-144) mmol/L Sodium 140 139 (136-145) mmol/L POC Potassium (3.3-5.0) mmol/L Potassium 3.9 3.5 (3.5-5.1) mmol/L POC Chloride (101-112) mmol/L Chloride 113 H 111 H (98-107) mmol/L Carbon Dioxide 19 L 20 L (21-32) mmol/L POC Total CO2 (24-31) mmol/L Anion Gap 8 8 (3-11) POC Anion Gap (16-25) mmol/L POC BUN (7-18) mg/dl BUN 11 14 (6-23) mg/dl Creatinine 0.68 0.78 (0.6-1.2) mg/dl POC Creatinine (0.6-1.3) mg/dl Est Cr Clr Drug Dosing 52.5 45.8 eGFR 83.20 72.56 BUN/Creatinine Ratio 16.2 17.9 (10-20) Glucose 87 92 (70-99(Fasting)) mg/dl POC Glucose (other) (70-99) mg/dl Lactate (0.4-2.0) mmol/L Calcium 7.9 L 7.8 L (8.6-10.3) mg/dl POC Ioniz Calcium Dru (1.12-1.32) mmol/l Phosphorus 2.3 L D 1.2 L* (2.5-4.9) mg/dl Magnesium (1.7-2.4) mg/dl Total Bilirubin (0.2-1.0) mg/dl Direct Bilirubin AST (13-39) U/L ALT (7-52) U/L Alkaline Phosphatase (34-104) U/L Troponin I High Sens (0-14) pg/ml B-Natriuretic Peptide (0-100) pg/ml Total Protein (6.0-8.3) gm/dl Albumin (3.4-5.0) gm/dl Globulin (2.5-4.0) gm/dl Albumin/Globulin Ratio (0.9-2) Lipase (11-82) U/L Procalcitonin (0-0.5) ng/ml Urine Color Urine Appearance (Clear) Urine pH (4.5-7.5) Ur Specific [place] (1.000-1.030) Urine Protein (Negative) Urine Glucose (UA) (Negative) Urine Ketones (Negative) Urine Blood (Negative) Urine Nitrite (Negative) Urine Bilirubin (Negative) Urine Urobilinogen (Negative) Ur Leukocyte Esterase (Negative) Urine WBC (Auto) (0-5) /hpf Urine RBC (Auto) (0-2) /hpf U Hyaline Cast (Auto) (0-2) /lpf U Epithel Cells (Auto) (0-2) /hpf Urine Bacteria (Auto) (None Seen) Urine Comment Nasal Screen MRSA (PCR) (Negative) Random Vancomycin 16.1 (10-20) mcg/ml Adenovirus (PCR) (NotDetected) Anaplasma Smear A. phagocytophilum DNA (Negative) Babesia Smear Babesia microti DNA PCR B. pertussis DNA (PCR) (NotDetected) B.parapertussis DNA PCR (NotDetected) Lyme Disease Screen (Negative) C. pneumoniae DNA (PCR) (NotDetected) Coronavirus OC43 (PCR) (NotDetected) Coronavirus HKU1 (PCR) (NotDetected) Coronavirus 229E (PCR) (NotDetected) SARS-CoV-2 (PCR) (NotDetected) Coronavirus NL63 (PCR) (NotDetected) Ehrlichia DNA (PCR) (Negative) Human Metapneumovir PCR (NotDetected) Influenza Type A (PCR) (NotDetected) Influenza Type B (PCR) (NotDetected) M. pneumoniae (PCR) (NotDetected) Parainfluenza 1 (PCR) (NotDetected) Parainfluenza 2 (PCR) (NotDetected) Parainfluenza 3 (PCR) (NotDetected) Parainfluenza 4 (PCR) (NotDetected) Q Fever Phase I IgG Ab Q Fever Phase I IgM Ab Q Fever Phase II IgG Ab Q Fever Phase II IgM Ab RSV (PCR) (NotDetected) Entero/Rhino (PCR) (NotDetected) Rickettsia IgG Ab Rickettsia IgM Ab Typhus Fever IgG Ab Typhus Fever IgM Ab 03/24/25 03/24/25 03/24/25 Range/Units 11:20 09:26 05:51 WBC 8.09 (4.8-10.8) K/ul RBC 4.06 L (4.20-5.40) M/uL Hgb 11.2 L (12.0-16.0) g/dL POC Hgb (12.0-16.0) g/dl Hct 34.0 L (37.0-47.0) % POC Hct (37-47) % MCV 83.7 (80.0-100.0) fL MCH 27.6 (25.0-34.0) pg MCHC 32.9 (32.0-36.0) g/dL RDW Std Deviation 47.3 H (36.4-46.3) fL RDW Coeff of Lorenzo 15.5 H (11.5-14.5) % Plt Count 157 (130-400) K/uL MPV 10.1 (9.4-12.4) fL Immature Gran % (Auto) 0.6 % Neut % (Auto) 75.6 % Lymph % (Auto) 14.7 % Milam % (Auto) 8.5 % Eos % (Auto) 0.4 % Baso % (Auto) 0.2 % Neut # (Auto) 6.11 (1.40-6.50) K/uL Lymph # (Auto) 1.19 L (1.20-3.40) K/uL Milam # (Auto) 0.69 H (0.11-0.59) K/uL Eos # (Auto) 0.03 (0.00-0.50) K/uL Baso # (Auto) 0.02 (0.00-0.20) K/uL Immature Gran # (Auto) 0.05 (0.01-0.20) K/uL Ovalocytes PT (9.0-12.0) Seconds INR (0.9-1.1) VBG pH (7.36-7.41) VBG pCO2 (38-50) mmHg VBG pO2 mmHg VBG HCO3 mmol/L VBG O2 Saturation % VBG Base Excess mEq/L POC Sodium (135-144) mmol/L Sodium 138 (136-145) mmol/L POC Potassium (3.3-5.0) mmol/L Potassium 3.7 (3.5-5.1) mmol/L POC Chloride (101-112) mmol/L Chloride 111 H (98-107) mmol/L Carbon Dioxide 18 L (21-32) mmol/L POC Total CO2 (24-31) mmol/L Anion Gap 9 (3-11) POC Anion Gap (16-25) mmol/L POC BUN (7-18) mg/dl BUN 15 (6-23) mg/dl Creatinine 0.81 (0.6-1.2) mg/dl POC Creatinine (0.6-1.3) mg/dl Est Cr Clr Drug Dosing 44.1 eGFR 69.34 BUN/Creatinine Ratio 18.5 (10-20) Glucose 99 (70-99(Fasting)) mg/dl POC Glucose (other) (70-99) mg/dl Lactate (0.4-2.0) mmol/L Calcium 7.7 L (8.6-10.3) mg/dl POC Ioniz Calcium Dru (1.12-1.32) mmol/l Phosphorus 1.2 L* (2.5-4.9) mg/dl Magnesium 2.0 (1.7-2.4) mg/dl Total Bilirubin (0.2-1.0) mg/dl Direct Bilirubin AST (13-39) U/L ALT (7-52) U/L Alkaline Phosphatase (34-104) U/L Troponin I High Sens (0-14) pg/ml B-Natriuretic Peptide 990 H (0-100) pg/ml Total Protein (6.0-8.3) gm/dl Albumin (3.4-5.0) gm/dl Globulin (2.5-4.0) gm/dl Albumin/Globulin Ratio (0.9-2) Lipase (11-82) U/L Procalcitonin (0-0.5) ng/ml Urine Color Urine Appearance (Clear) Urine pH (4.5-7.5) Ur Specific [place] (1.000-1.030) Urine Protein (Negative) Urine Glucose (UA) (Negative) Urine Ketones (Negative) Urine Blood (Negative) Urine Nitrite (Negative) Urine Bilirubin (Negative) Urine Urobilinogen (Negative) Ur Leukocyte Esterase (Negative) Urine WBC (Auto) (0-5) /hpf Urine RBC (Auto) (0-2) /hpf U Hyaline Cast (Auto) (0-2) /lpf U Epithel Cells (Auto) (0-2) /hpf Urine Bacteria (Auto) (None Seen) Urine Comment Nasal Screen MRSA (PCR) (Negative) Random Vancomycin (10-20) mcg/ml Adenovirus (PCR) Not Detected (NotDetected) Anaplasma Smear A. phagocytophilum DNA (Negative) Babesia Smear Babesia microti DNA PCR B. pertussis DNA (PCR) Not Detected (NotDetected) B.parapertussis DNA PCR Not Detected (NotDetected) Lyme Disease Screen (Negative) C. pneumoniae DNA (PCR) Not Detected (NotDetected) Coronavirus OC43 (PCR) Not Detected (NotDetected) Coronavirus HKU1 (PCR) Not Detected (NotDetected) Coronavirus 229E (PCR) Not Detected (NotDetected) SARS-CoV-2 (PCR) Not Detected (NotDetected) Coronavirus NL63 (PCR) Not Detected (NotDetected) Ehrlichia DNA (PCR) (Negative) Human Metapneumovir PCR Not Detected (NotDetected) Influenza Type A (PCR) Not Detected (NotDetected) Influenza Type B (PCR) Not Detected (NotDetected) M. pneumoniae (PCR) Not Detected (NotDetected) Parainfluenza 1 (PCR) Not Detected (NotDetected) Parainfluenza 2 (PCR) Not Detected (NotDetected) Parainfluenza 3 (PCR) Not Detected (NotDetected) Parainfluenza 4 (PCR) Not Detected (NotDetected) Q Fever Phase I IgG Ab Q Fever Phase I IgM Ab Q Fever Phase II IgG Ab Q Fever Phase II IgM Ab RSV (PCR) Not Detected (NotDetected) Entero/Rhino (PCR) Not Detected (NotDetected) Rickettsia IgG Ab Rickettsia IgM Ab Typhus Fever IgG Ab Typhus Fever IgM Ab 03/23/25 03/23/25 03/22/25 Range/Units 12:02 04:36 04:29 WBC 8.25 10.37 (4.8-10.8) K/ul RBC 4.28 3.58 L (4.20-5.40) M/uL Hgb 12.0 10.1 L (12.0-16.0) g/dL POC Hgb (12.0-16.0) g/dl Hct 37.2 30.9 L (37.0-47.0) % POC Hct (37-47) % MCV 86.9 86.3 (80.0-100.0) fL MCH 28.0 28.2 (25.0-34.0) pg MCHC 32.3 32.7 (32.0-36.0) g/dL RDW Std Deviation 50.6 H 49.7 H (36.4-46.3) fL RDW Coeff of Lorenzo 15.8 H 15.8 H (11.5-14.5) % Plt Count 131 133 (130-400) K/uL MPV 10.2 9.7 (9.4-12.4) fL Immature Gran % (Auto) 0.7 % Neut % (Auto) 81.1 % Lymph % (Auto) 11.6 % Milam % (Auto) 5.8 % Eos % (Auto) 0.7 % Baso % (Auto) 0.1 % Neut # (Auto) 6.68 H (1.40-6.50) K/uL Lymph # (Auto) 0.96 L (1.20-3.40) K/uL Milam # (Auto) 0.48 (0.11-0.59) K/uL Eos # (Auto) 0.06 (0.00-0.50) K/uL Baso # (Auto) 0.01 (0.00-0.20) K/uL Immature Gran # (Auto) 0.06 (0.01-0.20) K/uL Ovalocytes PT (9.0-12.0) Seconds INR (0.9-1.1) VBG pH (7.36-7.41) VBG pCO2 (38-50) mmHg VBG pO2 mmHg VBG HCO3 mmol/L VBG O2 Saturation % VBG Base Excess mEq/L POC Sodium (135-144) mmol/L Sodium 138 135 L (136-145) mmol/L POC Potassium (3.3-5.0) mmol/L Potassium 4.1 3.8 (3.5-5.1) mmol/L POC Chloride (101-112) mmol/L Chloride 113 H 112 H (98-107) mmol/L Carbon Dioxide 19 L 17 L (21-32) mmol/L POC Total CO2 (24-31) mmol/L Anion Gap 6 6 (3-11) POC Anion Gap (16-25) mmol/L POC BUN (7-18) mg/dl BUN 15 19 (6-23) mg/dl Creatinine 0.94 1.08 (0.6-1.2) mg/dl POC Creatinine (0.6-1.3) mg/dl Est Cr Clr Drug Dosing 38.0 33.1 eGFR 58.00 49.10 BUN/Creatinine Ratio 16.0 17.6 (10-20) Glucose 105 H 101 H (70-99(Fasting)) mg/dl POC Glucose (other) (70-99) mg/dl Lactate (0.4-2.0) mmol/L Calcium 7.8 L 7.2 L (8.6-10.3) mg/dl POC Ioniz Calcium Dru (1.12-1.32) mmol/l Phosphorus 1.9 L 2.1 L (2.5-4.9) mg/dl Magnesium 2.3 1.8 (1.7-2.4) mg/dl Total Bilirubin 0.5 D (0.2-1.0) mg/dl Direct Bilirubin AST 16 (13-39) U/L ALT 9 (7-52) U/L Alkaline Phosphatase 44 (34-104) U/L Troponin I High Sens (0-14) pg/ml B-Natriuretic Peptide (0-100) pg/ml Total Protein 5.7 L D (6.0-8.3) gm/dl Albumin 2.8 L (3.4-5.0) gm/dl Globulin 2.9 (2.5-4.0) gm/dl Albumin/Globulin Ratio 1.0 (0.9-2) Lipase (11-82) U/L Procalcitonin (0-0.5) ng/ml Urine Color Urine Appearance (Clear) Urine pH (4.5-7.5) Ur Specific [place] (1.000-1.030) Urine Protein (Negative) Urine Glucose (UA) (Negative) Urine Ketones (Negative) Urine Blood (Negative) Urine Nitrite (Negative) Urine Bilirubin (Negative) Urine Urobilinogen (Negative) Ur Leukocyte Esterase (Negative) Urine WBC (Auto) (0-5) /hpf Urine RBC (Auto) (0-2) /hpf U Hyaline Cast (Auto) (0-2) /lpf U Epithel Cells (Auto) (0-2) /hpf Urine Bacteria (Auto) (None Seen) Urine Comment Nasal Screen MRSA (PCR) (Negative) Random Vancomycin 6.3 L (10-20) mcg/ml Adenovirus (PCR) (NotDetected) Anaplasma Smear A. phagocytophilum DNA (Negative) Babesia Smear Babesia microti DNA PCR B. pertussis DNA (PCR) (NotDetected) B.parapertussis DNA PCR (NotDetected) Lyme Disease Screen (Negative) C. pneumoniae DNA (PCR) (NotDetected) Coronavirus OC43 (PCR) (NotDetected) Coronavirus HKU1 (PCR) (NotDetected) Coronavirus 229E (PCR) (NotDetected) SARS-CoV-2 (PCR) (NotDetected) Coronavirus NL63 (PCR) (NotDetected) Ehrlichia DNA (PCR) (Negative) Human Metapneumovir PCR (NotDetected) Influenza Type A (PCR) (NotDetected) Influenza Type B (PCR) (NotDetected) M. pneumoniae (PCR) (NotDetected) Parainfluenza 1 (PCR) (NotDetected) Parainfluenza 2 (PCR) (NotDetected) Parainfluenza 3 (PCR) (NotDetected) Parainfluenza 4 (PCR) (NotDetected) Q Fever Phase I IgG Ab Q Fever Phase I IgM Ab Q Fever Phase II IgG Ab Q Fever Phase II IgM Ab RSV (PCR) (NotDetected) Entero/Rhino (PCR) (NotDetected) Rickettsia IgG Ab Rickettsia IgM Ab Typhus Fever IgG Ab Typhus Fever IgM Ab 03/21/25 03/21/25 03/21/25 Range/Units 21:52 13:15 09:47 WBC (4.8-10.8) K/ul RBC (4.20-5.40) M/uL Hgb (12.0-16.0) g/dL POC Hgb (12.0-16.0) g/dl Hct (37.0-47.0) % POC Hct (37-47) % MCV (80.0-100.0) fL MCH (25.0-34.0) pg MCHC (32.0-36.0) g/dL RDW Std Deviation (36.4-46.3) fL RDW Coeff of Lorenzo (11.5-14.5) % Plt Count (130-400) K/uL MPV (9.4-12.4) fL Immature Gran % (Auto) % Neut % (Auto) % Lymph % (Auto) % Milam % (Auto) % Eos % (Auto) % Baso % (Auto) % Neut # (Auto) (1.40-6.50) K/uL Lymph # (Auto) (1.20-3.40) K/uL Milam # (Auto) (0.11-0.59) K/uL Eos # (Auto) (0.00-0.50) K/uL Baso # (Auto) (0.00-0.20) K/uL Immature Gran # (Auto) (0.01-0.20) K/uL Ovalocytes PT (9.0-12.0) Seconds INR (0.9-1.1) VBG pH 7.36 (7.36-7.41) VBG pCO2 31 L (38-50) mmHg VBG pO2 38 mmHg VBG HCO3 18 mmol/L VBG O2 Saturation 69.0 % VBG Base Excess -6.8 mEq/L POC Sodium (135-144) mmol/L Sodium (136-145) mmol/L POC Potassium (3.3-5.0) mmol/L Potassium (3.5-5.1) mmol/L POC Chloride (101-112) mmol/L Chloride (98-107) mmol/L Carbon Dioxide (21-32) mmol/L POC Total CO2 (24-31) mmol/L Anion Gap (3-11) POC Anion Gap (16-25) mmol/L POC BUN (7-18) mg/dl BUN (6-23) mg/dl Creatinine (0.6-1.2) mg/dl POC Creatinine (0.6-1.3) mg/dl Est Cr Clr Drug Dosing eGFR BUN/Creatinine Ratio (10-20) Glucose (70-99(Fasting)) mg/dl POC Glucose (other) (70-99) mg/dl Lactate (0.4-2.0) mmol/L Calcium (8.6-10.3) mg/dl POC Ioniz Calcium Rdu (1.12-1.32) mmol/l Phosphorus (2.5-4.9) mg/dl Magnesium (1.7-2.4) mg/dl Total Bilirubin (0.2-1.0) mg/dl Direct Bilirubin AST (13-39) U/L ALT (7-52) U/L Alkaline Phosphatase (34-104) U/L Troponin I High Sens (0-14) pg/ml B-Natriuretic Peptide (0-100) pg/ml Total Protein (6.0-8.3) gm/dl Albumin (3.4-5.0) gm/dl Globulin (2.5-4.0) gm/dl Albumin/Globulin Ratio (0.9-2) Lipase (11-82) U/L Procalcitonin (0-0.5) ng/ml Urine Color Urine Appearance (Clear) Urine pH (4.5-7.5) Ur Specific [place] (1.000-1.030) Urine Protein (Negative) Urine Glucose (UA) (Negative) Urine Ketones (Negative) Urine Blood (Negative) Urine Nitrite (Negative) Urine Bilirubin (Negative) Urine Urobilinogen (Negative) Ur Leukocyte Esterase (Negative) Urine WBC (Auto) (0-5) /hpf Urine RBC (Auto) (0-2) /hpf U Hyaline Cast (Auto) (0-2) /lpf U Epithel Cells (Auto) (0-2) /hpf Urine Bacteria (Auto) (None Seen) Urine Comment Nasal Screen MRSA (PCR) Positive A (Negative) Random Vancomycin (10-20) mcg/ml Adenovirus (PCR) (NotDetected) Anaplasma Smear A. phagocytophilum DNA (Negative) Babesia Smear Babesia microti DNA PCR B. pertussis DNA (PCR) (NotDetected) B.parapertussis DNA PCR (NotDetected) Lyme Disease Screen Negative (Negative) C. pneumoniae DNA (PCR) (NotDetected) Coronavirus OC43 (PCR) (NotDetected) Coronavirus HKU1 (PCR) (NotDetected) Coronavirus 229E (PCR) (NotDetected) SARS-CoV-2 (PCR) (NotDetected) Coronavirus NL63 (PCR) (NotDetected) Ehrlichia DNA (PCR) (Negative) Human Metapneumovir PCR (NotDetected) Influenza Type A (PCR) (NotDetected) Influenza Type B (PCR) (NotDetected) M. pneumoniae (PCR) (NotDetected) Parainfluenza 1 (PCR) (NotDetected) Parainfluenza 2 (PCR) (NotDetected) Parainfluenza 3 (PCR) (NotDetected) Parainfluenza 4 (PCR) (NotDetected) Q Fever Phase I IgG Ab Q Fever Phase I IgM Ab Q Fever Phase II IgG Ab Q Fever Phase II IgM Ab RSV (PCR) (NotDetected) Entero/Rhino (PCR) (NotDetected) Rickettsia IgG Ab Rickettsia IgM Ab Typhus Fever IgG Ab Typhus Fever IgM Ab 03/21/25 03/21/25 03/21/25 Range/Units 09:46 08:52 08:16 WBC (4.8-10.8) K/ul RBC (4.20-5.40) M/uL Hgb (12.0-16.0) g/dL POC Hgb (12.0-16.0) g/dl Hct (37.0-47.0) % POC Hct (37-47) % MCV (80.0-100.0) fL MCH (25.0-34.0) pg MCHC (32.0-36.0) g/dL RDW Std Deviation (36.4-46.3) fL RDW Coeff of Lorenzo (11.5-14.5) % Plt Count (130-400) K/uL MPV (9.4-12.4) fL Immature Gran % (Auto) % Neut % (Auto) % Lymph % (Auto) % Milam % (Auto) % Eos % (Auto) % Baso % (Auto) % Neut # (Auto) (1.40-6.50) K/uL Lymph # (Auto) (1.20-3.40) K/uL Milam # (Auto) (0.11-0.59) K/uL Eos # (Auto) (0.00-0.50) K/uL Baso # (Auto) (0.00-0.20) K/uL Immature Gran # (Auto) (0.01-0.20) K/uL Ovalocytes PT (9.0-12.0) Seconds INR (0.9-1.1) VBG pH 7.40 (7.36-7.41) VBG pCO2 30 L (38-50) mmHg VBG pO2 35 mmHg VBG HCO3 19 mmol/L VBG O2 Saturation < 60.0 % VBG Base Excess -5.0 mEq/L POC Sodium (135-144) mmol/L Sodium (136-145) mmol/L POC Potassium (3.3-5.0) mmol/L Potassium (3.5-5.1) mmol/L POC Chloride (101-112) mmol/L Chloride (98-107) mmol/L Carbon Dioxide (21-32) mmol/L POC Total CO2 (24-31) mmol/L Anion Gap (3-11) POC Anion Gap (16-25) mmol/L POC BUN (7-18) mg/dl BUN (6-23) mg/dl Creatinine (0.6-1.2) mg/dl POC Creatinine (0.6-1.3) mg/dl Est Cr Clr Drug Dosing eGFR BUN/Creatinine Ratio (10-20) Glucose (70-99(Fasting)) mg/dl POC Glucose (other) (70-99) mg/dl Lactate 1.6 (0.4-2.0) mmol/L Calcium (8.6-10.3) mg/dl POC Ioniz Calcium Dru (1.12-1.32) mmol/l Phosphorus (2.5-4.9) mg/dl Magnesium (1.7-2.4) mg/dl Total Bilirubin (0.2-1.0) mg/dl Direct Bilirubin AST (13-39) U/L ALT (7-52) U/L Alkaline Phosphatase (34-104) U/L Troponin I High Sens (0-14) pg/ml B-Natriuretic Peptide (0-100) pg/ml Total Protein (6.0-8.3) gm/dl Albumin (3.4-5.0) gm/dl Globulin (2.5-4.0) gm/dl Albumin/Globulin Ratio (0.9-2) Lipase (11-82) U/L Procalcitonin (0-0.5) ng/ml Urine Color Yellow Urine Appearance Clear (Clear) Urine pH 8.0 H (4.5-7.5) Ur Specific [place] 1.020 (1.000-1.030) Urine Protein 1+ H (Negative) Urine Glucose (UA) Negative (Negative) Urine Ketones Trace H (Negative) Urine Blood Negative (Negative) Urine Nitrite Negative (Negative) Urine Bilirubin Negative (Negative) Urine Urobilinogen Negative (Negative) Ur Leukocyte Esterase Trace H (Negative) Urine WBC (Auto) 0-5 (0-5) /hpf Urine RBC (Auto) 3-5 H (0-2) /hpf U Hyaline Cast (Auto) 0-2 (0-2) /lpf U Epithel Cells (Auto) 0-2 (0-2) /hpf Urine Bacteria (Auto) 4+ H (None Seen) Urine Comment Nasal Screen MRSA (PCR) (Negative) Random Vancomycin (10-20) mcg/ml Adenovirus (PCR) (NotDetected) Anaplasma Smear A. phagocytophilum DNA Negative (Negative) Babesia Smear Babesia microti DNA PCR Pending B. pertussis DNA (PCR) (NotDetected) B.parapertussis DNA PCR (NotDetected) Lyme Disease Screen (Negative) C. pneumoniae DNA (PCR) (NotDetected) Coronavirus OC43 (PCR) (NotDetected) Coronavirus HKU1 (PCR) (NotDetected) Coronavirus 229E (PCR) (NotDetected) SARS-CoV-2 (PCR) (NotDetected) Coronavirus NL63 (PCR) (NotDetected) Ehrlichia DNA (PCR) (Negative) Human Metapneumovir PCR (NotDetected) Influenza Type A (PCR) (NotDetected) Influenza Type B (PCR) (NotDetected) M. pneumoniae (PCR) (NotDetected) Parainfluenza 1 (PCR) (NotDetected) Parainfluenza 2 (PCR) (NotDetected) Parainfluenza 3 (PCR) (NotDetected) Parainfluenza 4 (PCR) (NotDetected) Q Fever Phase I IgG Ab Q Fever Phase I IgM Ab Q Fever Phase II IgG Ab Q Fever Phase II IgM Ab RSV (PCR) (NotDetected) Entero/Rhino (PCR) (NotDetected) Rickettsia IgG Ab Rickettsia IgM Ab Typhus Fever IgG Ab Typhus Fever IgM Ab 03/21/25 03/21/25 Range/Units 08:01 08:00 WBC 13.39 H (4.8-10.8) K/ul RBC 4.48 (4.20-5.40) M/uL Hgb 12.8 (12.0-16.0) g/dL POC Hgb 13.3 (12.0-16.0) g/dl Hct 37.8 (37.0-47.0) % POC Hct 39 (37-47) % MCV 84.4 (80.0-100.0) fL MCH 28.6 (25.0-34.0) pg MCHC 33.9 (32.0-36.0) g/dL RDW Std Deviation 47.0 H (36.4-46.3) fL RDW Coeff of Lorenzo 15.3 H (11.5-14.5) % Plt Count 171 (130-400) K/uL MPV 9.9 (9.4-12.4) fL Immature Gran % (Auto) 1.1 % Neut % (Auto) 90.7 % Lymph % (Auto) 3.7 % Milam % (Auto) 4.4 % Eos % (Auto) 0.0 % Baso % (Auto) 0.1 % Neut # (Auto) 12.14 H (1.40-6.50) K/uL Lymph # (Auto) 0.50 L (1.20-3.40) K/uL Milam # (Auto) 0.59 (0.11-0.59) K/uL Eos # (Auto) 0.00 (0.00-0.50) K/uL Baso # (Auto) 0.01 (0.00-0.20) K/uL Immature Gran # (Auto) 0.15 (0.01-0.20) K/uL Ovalocytes 1+ PT 11.4 (9.0-12.0) Seconds INR 1.1 (0.9-1.1) VBG pH (7.36-7.41) VBG pCO2 (38-50) mmHg VBG pO2 mmHg VBG HCO3 mmol/L VBG O2 Saturation % VBG Base Excess mEq/L POC Sodium 137 (135-144) mmol/L Sodium 134 L (136-145) mmol/L POC Potassium 4.3 (3.3-5.0) mmol/L Potassium 4.4 (3.5-5.1) mmol/L POC Chloride 104 (101-112) mmol/L Chloride 104 (98-107) mmol/L Carbon Dioxide 20 L (21-32) mmol/L POC Total CO2 17 L (24-31) mmol/L Anion Gap 10 (3-11) POC Anion Gap 21.0 (16-25) mmol/L POC BUN 26 H (7-18) mg/dl BUN 27 H (6-23) mg/dl Creatinine 1.18 (0.6-1.2) mg/dl POC Creatinine 1.3 (0.6-1.3) mg/dl Est Cr Clr Drug Dosing Not Reportable eGFR 44.15 BUN/Creatinine Ratio 22.9 H (10-20) Glucose 115 H (70-99(Fasting)) mg/dl POC Glucose (other) 123 H (70-99) mg/dl Lactate 2.6 H* (0.4-2.0) mmol/L Calcium 9.0 (8.6-10.3) mg/dl POC Ioniz Calcium Dru 1.12 (1.12-1.32) mmol/l Phosphorus (2.5-4.9) mg/dl Magnesium 1.8 (1.7-2.4) mg/dl Total Bilirubin 1.0 (0.2-1.0) mg/dl Direct Bilirubin TNP AST 20 (13-39) U/L ALT 10 (7-52) U/L Alkaline Phosphatase 63 (34-104) U/L Troponin I High Sens 11.8 (0-14) pg/ml B-Natriuretic Peptide (0-100) pg/ml Total Protein 7.8 (6.0-8.3) gm/dl Albumin 4.1 (3.4-5.0) gm/dl Globulin (2.5-4.0) gm/dl Albumin/Globulin Ratio (0.9-2) Lipase 14 (11-82) U/L Procalcitonin 2.52 H (0-0.5) ng/ml Urine Color Urine Appearance (Clear) Urine pH (4.5-7.5) Ur Specific [place] (1.000-1.030) Urine Protein (Negative) Urine Glucose (UA) (Negative) Urine Ketones (Negative) Urine Blood (Negative) Urine Nitrite (Negative) Urine Bilirubin (Negative) Urine Urobilinogen (Negative) Ur Leukocyte Esterase (Negative) Urine WBC (Auto) (0-5) /hpf Urine RBC (Auto) (0-2) /hpf U Hyaline Cast (Auto) (0-2) /lpf U Epithel Cells (Auto) (0-2) /hpf Urine Bacteria (Auto) (None Seen) Urine Comment Nasal Screen MRSA (PCR) (Negative) Random Vancomycin (10-20) mcg/ml Adenovirus (PCR) Not Detected (NotDetected) Anaplasma Smear See Comment A. phagocytophilum DNA (Negative) Babesia Smear See Comment Babesia microti DNA PCR B. pertussis DNA (PCR) Not Detected (NotDetected) B.parapertussis DNA PCR Not Detected (NotDetected) Lyme Disease Screen (Negative) C. pneumoniae DNA (PCR) Not Detected (NotDetected) Coronavirus OC43 (PCR) Not Detected (NotDetected) Coronavirus HKU1 (PCR) Not Detected (NotDetected) Coronavirus 229E (PCR) Not Detected (NotDetected) SARS-CoV-2 (PCR) Not Detected (NotDetected) Coronavirus NL63 (PCR) Not Detected (NotDetected) Ehrlichia DNA (PCR) Negative (Negative) Human Metapneumovir PCR Not Detected (NotDetected) Influenza Type A (PCR) Not Detected (NotDetected) Influenza Type B (PCR) Not Detected (NotDetected) M. pneumoniae (PCR) Not Detected (NotDetected) Parainfluenza 1 (PCR) Not Detected (NotDetected) Parainfluenza 2 (PCR) Not Detected (NotDetected) Parainfluenza 3 (PCR) Not Detected (NotDetected) Parainfluenza 4 (PCR) Not Detected (NotDetected) Q Fever Phase I IgG Ab Pending Q Fever Phase I IgM Ab Pending Q Fever Phase II IgG Ab Pending Q Fever Phase II IgM Ab Pending RSV (PCR) Not Detected (NotDetected) Entero/Rhino (PCR) Not Detected (NotDetected) Rickettsia IgG Ab Pending Rickettsia IgM Ab Pending Typhus Fever IgG Ab Pending Typhus Fever IgM Ab Pending Diagnostic Findings Chest X-Ray 03/21/25 07:54 XR chest 1V portable HISTORY: 89 years-old Female Sepsis acute sepsis COMPARISON: None TECHNIQUE: AP view of the chest FINDINGS: Cardiac silhouette is mildly enlarged. No pneumothorax, pleural effusion or overt pulmonary edema. Mild linear subsegmental left basilar atelectasis. Calcified granuloma at the lateral left midlung. Bones of the chest appear grossly intact. IMPRESSION: No acute process. ACT 112: Negative or not required by law. The above report was generated using voice recognition software. It may contain grammatical, syntax or spelling errors. Electronically signed by: Néstor Seo M.D. 03/21/2025 8:[address] 03/21/25 08:00 CT head/brain wo con CLINICAL HISTORY: 89 years-old Female with ams. Acutely altered mental status TECHNIQUE: Multiple axial CT images of the head were obtained without contrast. A dose lowering technique was utilized adhering to the principles of ALARA. COMPARISON: None. FINDINGS: No acute intracranial hemorrhage, midline shift, intracranial mass, hydrocephalus, territorial ischemia or abnormal extra-axial collection. Involutional changes with white matter hypodensities suggestive of chronic microvascular ischemic disease. Moderate ventriculomegaly, likely on an ex vacuo basis. Cerebral vascular calcifications. The calvarium is intact. Mild mucosal thickening of the ethmoid air cells. Mastoid air cells are clear. IMPRESSION: No acute intracranial abnormality. ACT 112: Negative or not required by law. The above report was generated using voice recognition software. It may contain grammatical, syntax or spelling errors. Electronically signed by: Néstor Seo M.D. 03/21/2025 9:32 AM Abdomen/Pelvis CT 03/21/25 08:[address] WITH IV CONTRAST CT DOSE: 1495.71 mGy.cm HISTORY: Acute nausea and vomiting vomitting TECHNIQUE: Multiaxial CT images of the abdomen and pelvis were performed following the IV administration of 94 cc of Optiray, A dose lowering technique was utilized adhering to the principles of ALARA. COMPARISON STUDY: CTA chest of same day FINDINGS: Chest CT dictated separately. Coronary artery calcifications are noted. Right basilar mucous plugging with mild bibasilar atelectasis. No pneumatosis or pneumoperitoneum. Calcified granulomata of the spleen. Unremarkable adrenal glands, gallbladder and liver with patency of the hepatic and portal veins. There are a few scattered hypodense foci of the pancreas measuring up to 9 mm, likely side branch IPMN's. Subcentimeter hypodensities of the left kidney, likely cysts. No hydronephrosis. Unremarkable urinary bladder with mild wall thickening. Indeterminate cystic left adnexal lesion measuring 1.9 cm, favored to be benign. Atherosclerosis of the aorta without aneurysm. Right inguinal chain lymph nodes measure up to 9 mm with mild adjacent inflammatory stranding. Fluid-filled distal esophagus. Small hiatal hernia. There is no bowel obstruction or bowel wall thickening. There is mild to moderate colonic fecal retention. Scattered small bowel air-fluid levels with loops measuring up to 2.2 cm. Normal appendix. Degenerative changes of the spine. Lumbar levoscoliosis. No acute fracture identified. IMPRESSION: 1. No bowel obstruction or pneumoperitoneum. 2. Scattered small bowel air-fluid levels may represent an enteritis or ileus. 3. Small hiatal hernia. 4. Incidental findings as above. ACT 112: Negative or not required by law. The above report was generated using voice recognition software. It may contain grammatical, syntax or spelling errors. Electronically signed by: Néstor Seo M.D. 03/21/2025 9:36 AM Chest CTA 03/21/25 08:40 CT angio chest PE protocol CT DOSE: 742.55 mGy.cm HISTORY: 89 years-old Female with ro PE. Acute shortness of breath with sepsis TECHNIQUE: Multiple CTA images of the chest were obtained after the intravenous administration of 80 ml Optiray. Coronal and sagittal MIPS were obtained from the axial data set and were submitted for review. All measurements were obtained according to NASCET criteria. A dose lowering technique was utilized adhering to the principles of ALARA. COMPARISON: CT abdomen and pelvis of same day FINDINGS: CTA: The heart is upper limits of normal in size. No pericardial effusion. Mild coronary artery calcifications. Atherosclerosis of the thoracic aorta. There is at least 50% stenosis at the origin of the left subclavian artery secondary to atherosclerotic plaque. No pulmonary emboli are identified, however the study is limited secondary to respiratory motion. CT CHEST: No thyroid nodule. Calcified mediastinal lymph nodes are suggestive of prior cranial disease. Noncalcified lymph nodes within the mediastinum and isabel measure up to 9 mm. No pneumothorax or pleural effusion. Mild intralobular septal thickening. There are a few scattered calcified pulmonary granulomata. Linear areas of bibasilar consolidation noted in conjunction with bronchial wall thickening and mild right basilar predominant mucous plugging. 3 mm subpleural low suspicion solid nodule left upper lobe, image 104. CT abdomen the dictated separately. Multilevel degenerative changes of the spine and shoulders. No acute fracture identified. IMPRESSION: 1. No pulmonary emboli identified. 2. Mild mucous plugging with bibasilar opacities suggestive of atelectasis. 3. Prior granulomatous disease. ACT 112: Negative or not required by law. The above report was generated using voice recognition software. It may contain grammatical, syntax or spelling errors. Electronically signed by: Néstor Seo M.D. 03/21/2025 9:46 AM Venous Doppler Study 03/21/25 08:40 BILATERAL LOWER EXTREMITY VENOUS DOPPLER HISTORY: Acute pain and swelling of the right lower leg ro dvt COMPARISON STUDY: None. FINDINGS: Limited exam secondary to patient lack of cooperation. Subcutaneous edema noted. There is normal compressibility, flow, and augmentation within the bilateral lower extremity deep venous systems. IMPRESSION: No DVT within the right or left lower extremity. ACT 112: Negative or not required by law. Electronically signed by: Néstor Seo M.D. 03/21/2025 12:32 PM KUB X-Ray 03/22/25 07:00 EXAM: XR KUB/Abdomen 1 view CLINICAL HISTORY: Ileus. TECHNIQUE: X-ray images of the abdomen were obtained in supine and upright positions. COMPARISON: No prior studies available for comparison. FINDINGS: Gas Pattern: Distended bowel loops loaded with fecal matter, with no evidence of intestinal obstruction. Soft Tissues: Soft tissues of the abdomen appear normal, without evidence of masses or calcifications. Liver, spleen, and kidneys are of normal size and position. Scoliotic convexity of the lumbar spine to the left. Lumbar spondylosis with bilateral sacroiliitis. IMPRESSION: No acute abnormalities identified. Moderately distended bowel loops loaded with fecal matter, with no evidence of intestinal obstruction. Electronically signed by Winston Traore 03-22-2025 08:14 AM Chest X-Ray 03/24/25 06:39 EXAM: XR chest 1V portable CLINICAL HISTORY: sob TECHNIQUE: An X-ray image of the chest was obtained in AP projection. COMPARISON: 03/21/2025 XR chest 1V portable FINDINGS: Pulmonary Parenchyma: Non-homogeneous opacity is identified in the right mid lower zone, silhouetting the right hemidiaphragm and right heart border, and extending along the right lateral chest wall, suggestive of pneumonic consolidation. New development. Opacity is also identified in the left lower zone, obliterating the left CP angle, suggestive of pleural effusion. New development. Heart and Mediastinum: Heart size and shape are normal. No mediastinal widening or masses. No hilar or mediastinal lymphadenopathy. Bony Thorax: Bony thorax appears intact without fractures or deformities. Soft Tissues: Soft tissues overlying the chest wall are unremarkable. IMPRESSION: 1. Imaging findings are suggestive of an infective etiology: pneumonic consolidation of the right middle and lower zones with bilateral pleural effusion. New development. 2. A CT of the chest would be more helpful for further evaluation. 3. In comparison with the patient's prior X-ray, there is obvious progression of the disease process. Electronically signed by Winston Traore 03-24-2025 08:18 AM PG Care Time/CCT Total # of Minutes Spent Total Time Spent with Patient: Total time spent is greater than 50% in coordination of care (as documented) at patient's floor/unit and/or counseling patient: I spent 90 minutes overall addressing this case: 15 min in medical data review/discussion with referring provider(s) and/or preparation for the visit 15 min in direct interaction with the patient/exam 30 min in Advance Care Planning/Goals of Care discussions as detailed above in note (must be >16min) 15 min in subsequent review and synthesis of assessment and plan 15 min communicating with other providers regarding the patient's case: nursing, cm, primary team Advanced Care Planning 44915 Advanced Care Planning 30 [place] [address] IN/OBS CONSULT LVL 4,60M (25 - SIGNIFICANT, SEPARATELY IDENTIFIABLE ) Patient Type New Medical Decision Making High Complexity Diagnoses Dementia with behavioral disturbance F03.918 Agitation due to dementia F03.911 Weakness generalized R53.1 Altered mental status R41.82 Discussion about advance care planning held with family member Z71.0 Palliative care by specialist Z51.5 Need for comfort care Additional Codes Advanced Care Planning - 09257 Advanced Care Planning 30 Min: 83906 Advanced Care Planning 30 Min ([id number])
[2025-03-26 11:26] VITALS: TEMP 98.1
[2025-03-26] MEDS: LORazepam Inj 0.5 MG in SYRINGE 0.25 ML IV PRN (13:16)
--- NOTE | 2025-03-26 22:04 | Communication Note ---
Date of Service: March 26, 2025 Patient wont keep personnel monitor on as per LABOR CUSTODIAN. Patient daughter in law agreeable to stepdown to medical unit given current comfort measures.
[2025-03-27] MEDS: MoRPHine SULFATE 10 MG/0.5 ML UDP PO PRN (02:01)
--- NOTE | 2025-03-27 10:47 | Hospitalist Progress Note ---
Date of Service March 27, 2025 Assessment & Plan (1) Sepsis: (2) Acute UTI: (3) Cellulitis: Plan Ms. Barron is an 89 year old woman with past medical history remarkable for PSVT, afib HTN, HLD, COPD CAD, GERD, age related osteoporosis, open angle glaucoma, depression, dementia presented to [facility] ED due to altered mental status and nausea/vomiting. #Severe sepsis, possible multiple infectious sources #Acute complicated cystitis #RLE cellulitis -Sepsis resolved -Culture data negative -MRSA screen positive -Completed vanc, cefepime, doxy on 03/27 Plan -Last day of abx today -Plan is Hospice at [facility] -Follow culture data -Follow renal function, vanc levels while on vanc #Afib RVR -HR 120s -History of pAfib. -Very poor candidate for AC. risks of bleeding outweigh stroke reduction benefits -Permissive tachycardia Plan -Resume home cardizem 180mg for RC if able to take -Continue telemetry -Add IV lopressor HR >120 #GOC discussion -03/24 discussed with YADIRA who makes medical decisions for patient. she is aspirating and risks/benefits were discussed and she was ordered comfort foods. Did not want PEG tube -03/25- D/w DIL again today, explained patient's poor prognosis and multiple active medical issues. DIL is open to hospice discussion. Reached out to palliative care and they will see patient -03/26- Palliative care to evaluate today, appreciate input -03/27- Hospice at [facility] plan #Hypoxia -Personally reviewed CXR images 03/24, new RML and RLL consolidations -BNP elevated -Suspect this is secondary to acute HFpEF from IVF rather than PNA as she is already on 3 broad spectrum antibiotics -Resolved following IV lasix on 03/24 -Resolved. Off O2 today -Biofire neg #HTN -BP remains elevated, increase cardizem back to home dose of 180mg daily due to RVR -Hold lisinopril for now #Hypophosphatemia -improving -Replace and follow #Dyslipidemia, goal LDL below 70 continue statin #COPD not on inhalers started mucinex levalbuterol prn DVT ppx heparin sq Dispo PCU DNR.DNI per discussion with son Marci spent a total of 45 minutes coordinating, documenting, and providing care for this patient excluding time spent in the performance of separately billed services. This included personally reviewing all current laboratories and imagin g studies, medical reconciliation, outpatient chart review and discussion with specialists Admission and Anticipated Discharge Date Admission Date: March 21, 2025 Subjective pleasantly confused. she denies any specific complaint this morning Physical Exam Physical Exam: Bitemp wasting, chronically ill appearing. elderly Sl restless Perrla neck no stridor Lyngs dim, few rhonchi R>L CV s1s2 Abd soft, NTP, no grimacing +Hernandez Gen weakness, agitated at times with exam no obvious c/c/e Skin pale, warm Confused and unable to follow commands
--- NOTE | 2025-03-28 09:57 | Hospitalist Progress Note ---
Date of Service March 28, 2025 Assessment & Plan (1) Sepsis: (2) Acute UTI: (3) Cellulitis: Plan Ms. Barron is an 89 year old woman with past medical history remarkable for PSVT, afib HTN, HLD, COPD CAD, GERD, age related osteoporosis, open angle glaucoma, depression, dementia presented to [facility] ED due to altered mental status and nausea/vomiting. #Severe sepsis, possible multiple infectious sources #Acute complicated cystitis #RLE cellulitis -Sepsis resolved -Culture data negative -MRSA screen positive -Completed vanc, cefepime, doxy on 03/27 Plan -Last day of abx today -Plan is Hospice at [facility] -Follow culture data -Follow renal function, vanc levels while on vanc #Afib RVR -HR 120s -History of pAfib. -Very poor candidate for AC. risks of bleeding outweigh stroke reduction benefits -Permissive tachycardia Plan -Resume home cardizem 180mg for RC if able to take -Continue telemetry -Add IV lopressor HR >120 #GOC discussion -03/24 discussed with YADIRA who makes medical decisions for patient. she is aspirating and risks/benefits were discussed and she was ordered comfort foods. Did not want PEG tube -03/25- D/w DIL again today, explained patient's poor prognosis and multiple active medical issues. DIL is open to hospice discussion. Reached out to palliative care and they will see patient -03/26- Palliative care to evaluate today, appreciate input -03/27- Hospice at [facility] plan #Hypoxia -Personally reviewed CXR images 03/24, new RML and RLL consolidations -BNP elevated -Suspect this is secondary to acute HFpEF from IVF rather than PNA as she is already on 3 broad spectrum antibiotics -Resolved following IV lasix on 03/24 -Resolved. Off O2 today -Biofire neg #HTN -BP remains elevated, increase cardizem back to home dose of 180mg daily due to RVR -Hold lisinopril for now #Hypophosphatemia -improving -Replace and follow #Dyslipidemia, goal LDL below 70 continue statin #COPD not on inhalers started mucinex levalbuterol prn DVT ppx heparin sq Dispo PCU DNR.DNI per discussion with son Marci spent a total of 47 minutes coordinating, documenting, and providing care for this patient excluding time spent in the performance of separately billed services. This included personally reviewing all current laboratories and imagin g studies, medical reconciliation, outpatient chart review and discussion with specialists Admission and Anticipated Discharge Date Admission Date: March 21, 2025 Subjective pleasantly confused. she denies any specific complaint this morning Physical Exam Physical Exam: Bitemp wasting, chronically ill appearing. elderly Sl restless Perrla neck no stridor Lyngs dim, few rhonchi R>L CV s1s2 Abd soft, NTP, no grimacing +Hernandez Gen weakness, agitated at times with exam no obvious c/c/e Skin pale, warm Confused and unable to follow commands Results & Data Results & Data Vital Signs (Past 12 Hours) Vital Signs O2 Del Method 03/28/25 07:18 Room Air
[2025-03-28 11:47] LABS: Q Fever IgG, Phase I NEGATIVE
--- NOTE | 2025-03-29 13:20 | Hospitalist Progress Note ---
Date of Service March 29, 2025 Assessment & Plan (1) Sepsis: (2) Acute UTI: (3) Cellulitis: Plan Ms. Barron is an 89 year old woman with past medical history remarkable for PSVT, afib HTN, HLD, COPD CAD, GERD, age related osteoporosis, open angle glaucoma, depression, dementia presented to [facility] ED due to altered mental status and nausea/vomiting. #Severe sepsis, possible multiple infectious sources #Acute complicated cystitis #RLE cellulitis -Sepsis resolved -Culture data negative -MRSA screen positive -Completed vanc, cefepime, doxy on 03/27 Plan -Plan is Hospice at [facility] -Follow culture data -Follow renal function, vanc levels while on vanc #Afib RVR -HR 120s -History of pAfib. -Very poor candidate for AC. risks of bleeding outweigh stroke reduction benefits -Permissive tachycardia Plan -Resume home cardizem 180mg for RC if able to take -Continue telemetry -Add IV lopressor HR >120 #GOC discussion -03/24 discussed with DIL who makes medical decisions for patient. she is aspirating and risks/benefits were discussed and she was ordered comfort foods. Did not want PEG tube -03/25- D/w DIL again today, explained patient's poor prognosis and multiple active medical issues. DIL is open to hospice discussion. Reached out to palliative care and they will see patient -03/26- Palliative care to evaluate today, appreciate input -03/27- Hospice at [facility] plan #Hypoxia -Personally reviewed CXR images 03/24, new RML and RLL consolidations -BNP elevated -Suspect this is secondary to acute HFpEF from IVF rather than PNA as she is already on 3 broad spectrum antibiotics -Resolved following IV lasix on 03/24 -Resolved. Off O2 today -Biofire neg #HTN -BP remains elevated, increase cardizem back to home dose of 180mg daily due to RVR -Hold lisinopril for now #Hypophosphatemia -improving -Replace and follow #Dyslipidemia, goal LDL below 70 continue statin #COPD not on inhalers started mucinex levalbuterol prn DVT ppx heparin sq Dispo PCU DNR.DNI per discussion with son Marci spent a total of 42 minutes coordinating, documenting, and providing care for this patient excluding time spent in the performance of separately billed services. This included personally reviewing all current laboratories and imaging studies, medical reconciliation, outpatient chart review and discussion with specialists Admission and Anticipated Discharge Date Admission Date: March 21, 2025 Subjective pleasantly confused. she denies any specific complaint this morning Physical Exam Physical Exam: Vitals and labs reviewed General: chronically ill appearing. elderly. NAD HEENT: EOMI, PERRLA Neck: Supple Cardiac: tachy, irregular Lungs: diminished bs bilatearlly. no distress Abd: S NT ND BS positive : No patel MSK: Full ROM. No obvious deformities Ext: No Edema cyanosis Skin: Warm, Dry Neuro: AO to person only. no focal deficits Psych: calm Results & Data Results & Data Vital Signs (Past 12 Hours) Vital Signs O2 Del Method 03/29/25 07:44 Room Air
--- NOTE | 2025-03-29 13:32 | Palliative Care Progress Note ---
Date of Service March 29, 2025 Assessment & Plan (1) Agitation due to dementia: (2) Altered mental status: (3) Palliative care by specialist: Plan: Palliative care will continue to follow for ongoing EOL pt care and family support. (4) Need for comfort care: Plan: Comfort plan of care parameters: 1. Patient/Family want hospice added to their care. 2. NO rehab/PT/OT 3. Strictly End of Life care only 4. NO escalation of care: do not increase oxygen, escalate therapies, etc. The focus is on comfort through end of life, assure this is accomplished with aggressive symptom management (i.e. relief of dyspnea, pain, etc.) 5. NO return to hospital 6. NO labs, imaging, surgery 7. Oral intake as desired for comfort and pleasure: NO dietary restriction, Allow permissive aspiration, do not withhold food or drink for concern of aspiration and allow PO for pleasure and comfort. 8. If difficulty urinating/commode/bedpan, ok to place Hernandez catheter for comfort/hygiene/skin protection AND/OR Continue Hernandez catheter for comfort/hygiene/skin protection 9. NO: calorie counts, artificial nutrition, feeding tubes or IV fluids EOL Symptom manamgement: Pain/dyspnea/tachypnea morphine 5mg PO PRN Q2H Consider titratable morphine drip if pt requires >3 PRN doses in under two consecutive hours. Nausea/vomitting zofran 4mg IVP q4h PRN Agitation ativan 0.5mg IVP q4h PRN Hyperactive delirium haldol 5mg IVP q6h PRN Secretions - if repositioning not effective robinul 0.4mg IV q4h PRN atropine SL 3 drops Q1h PRN Nursing care: Discontinue all medications not directed towards comfort. Detether pt from IV tubing, monitor cables, and check vitals once per shift. Please continue HFNC and titrate down as able for patient comfort. Use medications above PRN for dyspnea/tachypnea and do not increase oxygen once titrated down. Assess q1h for pain/dyspnea and treat accordingly. 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 Pt is unresponsive to verbal and gentle tactile stimuli, did not attempt to awaken in concert with comfort directed care. She appears comfortable, pale skin, extremities cool to touch. Respiratory effort normal, rate 14/min with no periods of apnea. No visitors at bedside. Review of Systems Review of Systems: All systems reviewed & are unremarkable except as noted in Subjective Physical Exam Constitutional: + ill appearing, + cachectic, comfortabl e and + lethargic Eyes: PERRL, conjunctivae normal, anicteric sclerae Neck: trachea midline, no thyromegaly Respiratory: normal respiratory effort, lungs clear to auscultation Gastrointestinal (Abdomen): normal bowel sounds, soft, nontender, no hepatosplenomegaly Neurologic: Pt is unresponsive to verbal and gentle tactile stimuli, did not attempt to awaken in concert with comfort directed care. Results & Data Vital Signs (Past 12 Hours) Vital Signs O2 Del Method 03/29/25 07:44 Room Air Laboratory Results No further labs or diagnostics in concert with comfort directed care. Diagnostic Findings No further labs or diagnostics in concert with comfort directed care. Medications Administered Current Inpatient Medications Acetaminophen (Acetaminophen 325 Mg Tab) 650 mg PO Q4H PRN PRN Reason: Pain or Fever Stop: 04/20/25 11:23 Last Admin: 03/26/25 07:54 Dose: 650 mg Diltiazem HCl (Diltiazem Hcl 180 Mg Capcr) 180 mg PO QAM [facility] Stop: 04/25/25 08:59 Last Admin: 03/29/25 08:42 Dose: 180 mg Fluoxetine HCl (Fluoxetine Hcl 20 Mg Cap) 60 mg PO QAM [facility] Stop: 04/21/25 08:59 Last Admin: 03/29/25 08:45 Dose: Not Given Guaifenesin (Guaifenesin 600 Mg Tabcr) 600 mg PO Q12 [facility] Stop: 04/21/25 20:59 Last Admin: 03/29/25 08:44 Dose: Not Given Haloperidol Lactate (Haloperidol Lactate 5 Mg/Ml 1 Ml Vial) 5 mg IV Q4 PRN PRN Reason: Agitation Stop: 04/23/25 13:54 Last Admin: 03/24/25 14:44 Dose: 5 mg Lorazepam 0.5 mg/ Syringe 0.5 mls @ 2 mls/min IV Q4H PRN PRN Reason: Anxiety/Agitation Stop: 04/25/25 11:29 Last Admin: 03/29/25 12:02 Dose: 2 mls/min Levalbuterol HCl (Levalbuterol Hcl 0.63 Mg/3 Ml Neb) 0.63 mg NEB Q6H PRN; Protocol PRN Reason: Shortness Of Breath Or Wheezing Stop: 04/20/25 13:28 Last Admin: 03/24/25 07:08 Dose: 0.63 mg Melatonin (Melatonin 3 Mg Tab) 3 mg PO HS PRN PRN Reason: Sleep Stop: 04/20/25 11:23 Last Admin: 03/27/25 02:02 Dose: 3 mg Morphine Sulfate (Morphine Sulfate 10 Mg/0.5 Ml Udp) 5 mg PO Q2H PRN PRN Reason: Pain,dyspnea Stop: 04/09/25 11:32 Last Admin: 03/29/25 12:00 Dose: 5 mg Olanzapine (Olanzapine Zydis 5 Mg Orally Dis. Tab) 2.5 mg PO BID PRN PRN Reason: Agitation Stop: 04/25/25 20:59 Ondansetron HCl (Ondansetron Inj 2 Mg/Ml 2 Ml Vial) 4 mg IV Q6H PRN PRN Reason: Nausea Stop: 04/20/25 11:23 Travoprost (Travoprost Z 0.004% Oph Soln 2.5 Ml Btl) 1 drops OP BID [facility] Stop: 04/20/25 20:59 Last Admin: 03/29/25 08:40 Dose: 1 drops PG Care Time/CCT Total # of Minutes Spent Total Time Spent with Patient: Total time spent is greater than 50% in coordination of care (as documented) at patient's floor/unit and/or counseling patient: Coding [place] [address] SUB INP/OBS CARE 3/50MIN Patient Type Established History Expanded Problem Focused Exam Expanded Problem Focused Medical Decision Making Moderate Complexity Diagnoses Agitation due to dementia F03.911 Altered mental status R41.82 Palliative care by specialist Z51.5 Need for comfort care
[2025-03-30] MEDS ORDERED: HYOSCYAMINE SULFATE 0.125 MG TAB SL PRN (09:14)
[2025-03-30] MEDS ORDERED: ONDANSETRON 4 MG OD TAB SL PRN (09:14)
[2025-03-30] MEDS ORDERED: GLYCOPYRROLATE 0.2 MG/ML VIAL IV PRN (09:14)
[2025-03-30] MEDS ORDERED: HALOPERIDOL ORAL SOLN 2 MG/ML PO PRN (09:14)
--- NOTE | 2025-03-30 09:24 | Palliative Care Progress Note ---
Date of Service March 30, 2025 Assessment & Plan (1) Agitation due to dementia: (2) Altered mental status: (3) Palliative care by specialist: Plan: Palliative care will continue to follow for ongoing EOL pt care and family support. (4) Need for comfort care: Plan: Comfort plan of care parameters: 1. Patient/Family want hospice added to their care. 2. NO rehab/PT/OT 3. Strictly End of Life care only 4. NO escalation of care: do not increase oxygen, escalate therapies, etc. The focus is on comfort through end of life, assure this is accomplished with aggressive symptom management (i.e. relief of dyspnea, pain, etc.) 5. NO return to hospital 6. NO labs, imaging, surgery 7. Oral intake as desired for comfort and pleasure: NO dietary restriction, Allow permissive aspiration, do not withhold food or drink for concern of aspiration and allow PO for pleasure and comfort. 8. If difficulty urinating/commode/bedpan, ok to place Hernandez catheter for comfort/hygiene/skin protection AND/OR Continue Hernandez catheter for comfort/hygiene/skin protection 9. NO: calorie counts, artificial nutrition, feeding tubes or IV fluids EOL Symptom manamgement: Pain/dyspnea/tachypnea morphine 5mg PO PRN Q2H Consider titratable morphine drip if pt requires >3 PRN doses in under two consecutive hours. Nausea/vomitting zofran 4mg IVP q4h PRN Agitation ativan 0.5mg IVP q4h PRN Hyperactive delirium haldol 5mg IVP q6h PRN Secretions - if repositioning not effective robinul 0.4mg IV q4h PRN atropine SL 3 drops Q1h PRN Nursing care: Discontinue all medications not directed towards comfort. Detether pt from IV tubing, monitor cables, and check vitals once per shift. Please continue HFNC and titrate down as able for patient comfort. Use medications above PRN for dyspnea/tachypnea and do not increase oxygen once titrated down. Assess q1h for pain/dyspnea and treat accordingly. 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 Pt is unresponsive to verbal and gentle tactile stimuli, did not attempt to awaken in concert with comfort directed care. She appears comfortable, pale skin, extremities cool to touch. Respiratory effort normal, rate 14/min with no periods of apnea. No visitors at bedside. Review of Systems Review of Systems: All systems reviewed & are unremarkable except as noted in Subjective Physical Exam Constitutional: + ill appearing, + cachectic, comfortabl e and + lethargic Eyes: PERRL, conjunctivae normal, anicteric sclerae Neck: trachea midline, no thyromegaly Respiratory: normal respiratory effort, lungs clear to auscultation Gastrointestinal (Abdomen): normal bowel sounds, soft, nontender, no hepatosplenomegaly Results & Data Vital Signs (Past 12 Hours) Vital Signs O2 Del Method 03/30/25 07:46 Room Air Laboratory Results No further labs or diagnostics in concert with comfort directed care. Diagnostic Findings No further labs or diagnostics in concert with comfort directed care. Medications Administered Current Inpatient Medications Acetaminophen (Acetaminophen 325 Mg Tab) 650 mg PO Q4H PRN PRN Reason: Pain or Fever Stop: 04/20/25 11:23 Last Admin: 03/26/25 07:54 Dose: 650 mg Atropine Sulfate (Atropine Sulfate 1% Op Soln 5 Ml Btl) 4 drops SL Q1H PRN PRN Reason: Secretions or pulm congestion Stop: 04/29/25 09:13 Diltiazem HCl (Diltiazem Hcl 180 Mg Capcr) 180 mg PO QAM [facility] Stop: 04/25/25 08:59 Last Admin: 03/29/25 08:42 Dose: 180 mg Fluoxetine HCl (Fluoxetine Hcl 20 Mg Cap) 60 mg PO QAM [facility] Stop: 04/21/25 08:59 Last Admin: 03/30/25 09:05 Dose: Not Given Glycopyrrolate (Glycopyrrolate 0.2 Mg/Ml Vial) 0.4 mg IV Q4H PRN PRN Reason: Rattling Secretions or Pulm Congestion Stop: 04/29/25 09:13 Guaifenesin (Guaifenesin 600 Mg Tabcr) 600 mg PO Q12 [facility] Stop: 04/21/25 20:59 Last Admin: 03/30/25 09:05 Dose: Not Given Haloperidol (Haloperidol Oral Soln 2 Mg/Ml) 0.5 mg PO Q4H PRN PRN Reason: Anxiety/Agitation Stop: 04/29/25 09:13 Haloperidol Lactate (Haloperidol Lactate 5 Mg/Ml 1 Ml Vial) 5 mg IV Q4 PRN PRN Reason: Agitation Stop: 04/23/25 13:54 Last Admin: 03/24/25 14:44 Dose: 5 mg Hyoscyamine (Hyoscyamine Sulfate 0.125 Mg Tab) 0.125 mg SL Q4H PRN PRN Reason: Secretions or Pulm Congestion Stop: 04/29/25 09:13 Lorazepam 0.5 mg/ Syringe 0.5 mls @ 2 mls/min IV Q4H PRN PRN Reason: Anxiety/Agitation Stop: 04/25/25 11:29 Last Admin: 03/29/25 12:02 Dose: 2 mls/min Levalbuterol HCl (Levalbuterol Hcl 0.63 Mg/3 Ml Neb) 0.63 mg NEB Q6H PRN; Protocol PRN Reason: Shortness Of Breath Or Wheezing Stop: 04/20/25 13:28 Last Admin: 03/24/25 07:08 Dose: 0.63 mg Melatonin (Melatonin 3 Mg Tab) 3 mg PO HS PRN PRN Reason: Sleep Stop: 04/20/25 11:23 Last Admin: 03/27/25 02:02 Dose: 3 mg Morphine Sulfate (Morphine Sulfate 10 Mg/0.5 Ml Udp) 5 mg PO Q2H PRN PRN Reason: Pain,dyspnea Stop: 04/09/25 11:32 Last Admin: 03/29/25 20:22 Dose: 5 mg Olanzapine (Olanzapine Zydis 5 Mg Orally Dis. Tab) 2.5 mg PO BID PRN PRN Reason: Agitation Stop: 04/25/25 20:59 Ondansetron HCl (Ondansetron Inj 2 Mg/Ml 2 Ml Vial) 4 mg IV Q6H PRN PRN Reason: Nausea Stop: 04/20/25 11:23 Ondansetron HCl (Ondansetron 4 Mg Od Tab) 4 mg SL Q4H PRN PRN Reason: Nausea &/or Vomiting Stop: 04/29/25 09:13 Travoprost (Travoprost Z 0.004% Oph Soln 2.5 Ml Btl) 1 drops OP BID [facility] Stop: 04/20/25 20:59 Last Admin: 03/29/25 20:22 Dose: 1 drops PG Care Time/CCT Total # of Minutes Spent Total Time Spent with Patient: Total time spent is greater than 50% in coordination of care (as documented) at patient's floor/unit and/or counseling patient: Coding [place] [address] SUB INP/OBS CARE 2MIN Patient Type Established History Expanded Problem Focused Exam Expanded Problem Focused Medical Decision Making Moderate Complexity Diagnoses Agitation due to dementia F03.911 Altered mental status R41.82 Palliative care by specialist Z51.5 Need for comfort care
--- NOTE | 2025-03-30 11:36 | Hospitalist Progress Note ---
Date of Service March 30, 2025 Assessment & Plan (1) Sepsis: (2) Acute UTI: (3) Cellulitis: Plan Ms. Barron is an 89 year old woman with past medical history remarkable for PSVT, afib HTN, HLD, COPD CAD, GERD, age related osteoporosis, open angle glaucoma, depression, dementia presented to [facility] ED due to altered mental status and nausea/vomiting. #Severe sepsis, possible multiple infectious sources #Acute complicated cystitis #RLE cellulitis -Sepsis resolved -Culture data negative -MRSA screen positive -Completed vanc, cefepime, doxy on 03/27 Plan -Plan is Hospice at [facility] -Follow culture data -Follow renal function, vanc levels while on vanc #Afib RVR -HR 120s -History of pAfib. -Very poor candidate for AC. risks of bleeding outweigh stroke reduction benefits -Permissive tachycardia Plan -Resume home cardizem 180mg for RC if able to take -Continue telemetry -Add IV lopressor HR >120 #GOC discussion -03/24 discussed with DIL who makes medical decisions for patient. she is aspirating and risks/benefits were discussed and she was ordered comfort foods. Did not want PEG tube -03/25- D/w DIL again today, explained patient's poor prognosis and multiple active medical issues. DIL is open to hospice discussion. Reached out to palliative care and they will see patient -03/26- Palliative care to evaluate today, appreciate input -03/27- Hospice at [facility] plan. 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 Off O2 today -Biofire neg #HTN -BP remains elevated, increase cardizem back to home dose of 180mg daily due to RVR -Hold lisinopril for now #Hypophosphatemia #Dyslipidemia, goal LDL below 70 continue statin #COPD not on inhalers started mucinex levalbuterol prn DVT ppx heparin sq Dispo PCU DNR.DNI per discussion with son Marci spent a total of 44 minutes coordinating, documenting, and providing care for this patient excluding time spent in the performance of separately billed services. This included personally reviewing all current laboratories and imaging studies, medical reconciliation, outpatient chart review and discussion with specialists Admission and Anticipated Discharge Date Admission Date: March 21, 2025 Subjective Resting comfortably in bed. pleasantly confused. no complaints. called DIL today but sent straight to Results & Data Results & Data Vital Signs (Past 12 Hours) Vital Signs Pulse BP O2 Del Method 03/30/25 11:21 108 H 142/78 H 03/30/25 07:46 Room Air
[2025-03-30] MEDS: ATROPINE SULFATE 1% OP SOLN 5 ML BTL SL PRN (20:09)
--- NOTE | 2025-03-31 14:04 | Palliative Care Progress Note ---
Date of Service March 31, 2025 Assessment & Plan (1) Agitation due to dementia: (2) Altered mental status: (3) Palliative care by specialist: Plan: Palliative care will continue to follow for ongoing EOL pt care and family support. (4) Need for comfort care: Plan: Comfort plan of care parameters: 1. Patient/Family want hospice added to their care. 2. NO rehab/PT/OT 3. Strictly End of Life care only 4. NO escalation of care: do not increase oxygen, escalate therapies, etc. The focus is on comfort through end of life, assure this is accomplished with aggressive symptom management (i.e. relief of dyspnea, pain, etc.) 5. NO return to hospital 6. NO labs, imaging, surgery 7. Oral intake as desired for comfort and pleasure: NO dietary restriction, Allow permissive aspiration, do not withhold food or drink for concern of aspiration and allow PO for pleasure and comfort. 8. If difficulty urinating/commode/bedpan, ok to place Hernandez catheter for comfort/hygiene/skin protection AND/OR Continue Hernandez catheter for comfort/hygiene/skin protection 9. NO: calorie counts, artificial nutrition, feeding tubes or IV fluids EOL Symptom manamgement: Pain/dyspnea/tachypnea morphine 5mg PO PRN Q2H Consider titratable morphine drip if pt requires >3 PRN doses in under two consecutive hours. Nausea/vomitting zofran 4mg IVP q4h PRN Agitation ativan 0.5mg IVP q4h PRN Hyperactive delirium haldol 5mg IVP q6h PRN Secretions - if repositioning not effective robinul 0.4mg IV q4h PRN atropine SL 3 drops Q1h PRN Nursing care: Discontinue all medications not directed towards comfort. Detether pt from IV tubing, monitor cables, and check vitals once per shift. Please continue HFNC and titrate down as able for patient comfort. Use medications above PRN for dyspnea/tachypnea and do not increase oxygen once titrated down. Assess q1h for pain/dyspnea and treat accordingly. 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 She does not currently fit criteria for GIP hospice, pending SNF placement with hospice. Admission and Anticipated Discharge Date Admission Date: March 21, 2025 Subjective Assessed pt at bedside, she was transitioned to POLISHER APPRENTICE on 03/26/25. Today she was awake and alert and denies discomfort. VSS. Respiratory effort normal, rate 14/min with no periods of apnea. No visitors at bedside. Review of Systems Review of Systems: All systems reviewed & are unremarkable except as noted in Subjective Physical Exam Constitutional: + ill appearing, + cachectic, comfortabl e and + lethargic Eyes: PERRL, conjunctivae normal, anicteric sclerae Neck: trachea midline, no thyromegaly Respiratory: normal respiratory effort, lungs clear to auscultation Gastrointestinal (Abdomen): normal bowel sounds, soft, nontender, no hepatosplenomegaly Skin: no rashes, warm and dry + turgor decreased and + pallor Results & Data Vital Signs (Past 12 Hours) Vital Signs O2 Del Method 03/31/25 07:55 Room Air Laboratory Results No further labs or diagnostics in concert with comfort directed care. Diagnostic Findings No further labs or diagnostics in concert with comfort directed care. Medications Administered Current Inpatient Medications Acetaminophen (Acetaminophen 325 Mg Tab) 650 mg PO Q4H PRN PRN Reason: Pain or Fever Stop: 04/20/25 11:23 Last Admin: 03/26/25 07:54 Dose: 650 mg Atropine Sulfate (Atropine Sulfate 1% Op Soln 5 Ml Btl) 4 drops SL Q1H PRN PRN Reason: Secretions or pulm congestion Stop: 04/29/25 09:13 Diltiazem HCl (Diltiazem Hcl 180 Mg Capcr) 180 mg PO QAM [facility] Stop: 04/25/25 08:59 Last Admin: 03/31/25 07:34 Dose: Not Given Fluoxetine HCl (Fluoxetine Hcl 20 Mg Cap) 60 mg PO QAM [facility] Stop: 04/21/25 08:59 Last Admin: 03/31/25 07:33 Dose: Not Given Glycopyrrolate (Glycopyrrolate 0.2 Mg/Ml Vial) 0.4 mg IV Q4H PRN PRN Reason: Rattling Secretions or Pulm Congestion Stop: 04/29/25 09:13 Guaifenesin (Guaifenesin 600 Mg Tabcr) 600 mg PO Q12 [facility] Stop: 04/21/25 20:59 Last Admin: 03/31/25 07:33 Dose: Not Given Haloperidol (Haloperidol Oral Soln 2 Mg/Ml) 0.5 mg PO Q4H PRN PRN Reason: Anxiety/Agitation Stop: 04/29/25 09:13 Haloperidol Lactate (Haloperidol Lactate 5 Mg/Ml 1 Ml Vial) 5 mg IV Q4 PRN PRN Reason: Agitation Stop: 04/23/25 13:54 Last Admin: 03/24/25 14:44 Dose: 5 mg Hyoscyamine (Hyoscyamine Sulfate 0.125 Mg Tab) 0.125 mg SL Q4H PRN PRN Reason: Secretions or Pulm Congestion Stop: 04/29/25 09:13 Lorazepam 0.5 mg/ Syringe 0.5 mls @ 2 mls/min IV Q4H PRN PRN Reason: Anxiety/Agitation Stop: 04/25/25 11:29 Last Admin: 03/29/25 12:02 Dose: 2 mls/min Levalbuterol HCl (Levalbuterol Hcl 0.63 Mg/3 Ml Neb) 0.63 mg NEB Q6H PRN; Protocol PRN Reason: Shortness Of Breath Or Wheezing Stop: 04/20/25 13:28 Last Admin: 03/24/25 07:08 Dose: 0.63 mg Melatonin (Melatonin 3 Mg Tab) 3 mg PO HS PRN PRN Reason: Sleep Stop: 04/20/25 11:23 Last Admin: 03/27/25 02:02 Dose: 3 mg Morphine Sulfate (Morphine Sulfate 10 Mg/0.5 Ml Udp) 5 mg PO Q2H PRN PRN Reason: Pain,dyspnea Stop: 04/09/25 11:32 Last Admin: 03/30/25 19:17 Dose: 5 mg Olanzapine (Olanzapine Zydis 5 Mg Orally Dis. Tab) 2.5 mg PO BID PRN PRN Reason: Agitation Stop: 04/25/25 20:59 Ondansetron HCl (Ondansetron Inj 2 Mg/Ml 2 Ml Vial) 4 mg IV Q6H PRN PRN Reason: Nausea Stop: 04/20/25 11:23 Ondansetron HCl (Ondansetron 4 Mg Od Tab) 4 mg SL Q4H PRN PRN Reason: Nausea &/or Vomiting Stop: 04/29/25 09:13 Travoprost (Travoprost Z 0.004% Oph Soln 2.5 Ml Btl) 1 drops OP BID [facility] Stop: 04/20/25 20:59 Last Admin: 03/31/25 07:47 Dose: 1 drops PG Care Time/CCT Total # of Minutes Spent Total Time Spent with Patient: Total time spent is greater than 50% in coordination of care (as documented) at patient's floor/unit and/or counseling patient: Coding [place] [address] SUB INP/OBS CARE 05/09MIN Patient Type Established History Problem Focused Exam Problem Focused Medical Decision Making Low Complexity Diagnoses Agitation due to dementia F03.911 Altered mental status R41.82 Palliative care by specialist Z51.5 Need for comfort care
--- NOTE | 2025-03-31 14:16 | Hospitalist Progress Note ---
Date of Service March 31, 2025 Assessment & Plan (1) Sepsis: (2) Acute UTI: (3) Cellulitis: Plan Ms. Barron is an 89 year old woman with past medical history remarkable for PSVT, afib HTN, HLD, COPD CAD, GERD, age related osteoporosis, open angle glaucoma, depression, dementia presented to [facility] ED due to altered mental status and nausea/vomiting. Comfort measures only Appreciate palliative care input and recommendation for comfort measures only Patient has the significant medical conditions as mentioned below Will keep current medications as long as she can take it and hold further blood work and/or escalation of care Remains stable clinically Significant medical conditions significant medical conditions are : #Severe sepsis, possible multiple infectious sources #Acute complicated cystitis #RLE cellulitis -Sepsis resolved -Culture data negative -MRSA screen positive -Completed vanc, cefepime, doxy on 03/27 -Plan is Hospice at [facility] -Follow culture data -Follow renal function, vanc levels while on vanc #Afib RVR -HR 120s -History of pAfib. -Very poor candidate for AC. risks of bleeding outweigh stroke reduction benefits -Permissive tachycardia Plan -Resume home cardizem 180mg for RC if able to take -Continue telemetry -Add IV lopressor HR >120 #GOC discussion -03/24 discussed with DIL who makes medical decisions for patient. she is aspirating and risks/benefits were discussed and she was ordered comfort foods. Did not want PEG tube -03/25- D/w DIL again today, explained patient's poor prognosis and multiple active medical issues. DIL is open to hospice discussion. Reached out to palliative care and they will see patient -03/26- Palliative care to evaluate today, appreciate input -03/27- Hospice at [facility] plan. SHe is [employer]ONE[employer] BL[employer]ER #Hypoxia -Personally reviewed CXR images 03/24, new RML and RLL consolidations -BNP elevated -Suspect this is secondary to acute HFpEF from IVF rather than PNA as she is already on 3 broad spectrum antibiotics -Resolved following IV lasix on 03/24 -Resolved. Off O2 today -Biofire neg #HTN -BP remains elevated, increase cardizem back to home dose of 180mg daily due to RVR -Hold lisinopril for now #Hypophosphatemia #Dyslipidemia, goal LDL below 70 continue statin #COPD not on inhalers started mucinex levalbuterol prn DVT ppx heparin sq Dispo PCU DNR.DNI per discussion with son Marci spent a total of 31 minutes coordinating, documenting, and providing care for this patient. This included personally reviewing all current laboratories and imaging studies, medical reconciliation, outpatient chart review and discussion with specialists Admission and Anticipated Discharge Date Admission Date: March 21, 2025 Subjective 03/31/2025 Patient was seen and examined in the medical floor She remains pleasantly confused Conversing reasonably and not in any acute distress Review of Systems Review of Systems: Unobtainable due to cognitive status Physical Exam Physical Exam: Lying in bed without any acute distress Constitutional: + ill appearing and average body habitus Eyes: PERRL, conjunctivae normal, anicteric sclerae ENMT: external ear and nose normal, oropharynx normal Neck: trachea midline, no thyromegaly Respiratory: no respiratory distress Auscultation: lungs clear to auscultation bilaterally Cardiovascular: Rate/Rhythm: regular rate and regular rhythm; not tachycardic Heart Sounds: normal S1 and normal S2; no murmur Extremities: no edema Gastrointestinal (Abdomen): Inspection/Auscultation: normal bowel sounds; abdomen not distended Percussion/Palpation: abdomen soft; abdomen nontender Musculoskeletal: No acute arthritis involving any of the joint Neurologic: Remains pleasantly confused Lymphatic: no cervical or axillary lymphadenopathy Results & Data Results & Data Vital Signs (Past 12 Hours) Vital Signs O2 Del Method 03/31/25 07:55 Room Air Medications Administered Current Inpatient Medications Acetaminophen (Acetaminophen 325 Mg Tab) 650 mg PO Q4H PRN PRN Reason: Pain or Fever Stop: 04/20/25 11:23 Last Admin: 03/26/25 07:54 Dose: 650 mg Atropine Sulfate (Atropine Sulfate 1% Op Soln 5 Ml Btl) 4 drops SL Q1H PRN PRN Reason: Secretions or pulm congestion Stop: 04/29/25 09:13 Diltiazem HCl (Diltiazem Hcl 180 Mg Capcr) 180 mg PO QAM COUNT [facility]CLUDES [facility] Stop: 04/25/25 08:59 Last Admin: 03/31/25 07:34 Dose: Not Given Fluoxetine HCl (Fluoxetine Hcl 20 Mg Cap) 60 mg PO QAM [facility] Stop: 04/21/25 08:59 Last Admin: 03/31/25 07:33 Dose: Not Given Glycopyrrolate (Glycopyrrolate 0.2 Mg/Ml Vial) 0.4 mg IV Q4H PRN PRN Reason: Rattling Secretions or Pulm Congestion Stop: 04/29/25 09:13 Guaifenesin (Guaifenesin 600 Mg Tabcr) 600 mg PO Q12 [facility] Stop: 04/21/25 20:59 Last Admin: 03/31/25 07:33 Dose: Not Given Haloperidol (Haloperidol Oral Soln 2 Mg/Ml) 0.5 mg PO Q4H PRN PRN Reason: Anxiety/Agitation Stop: 04/29/25 09:13 Haloperidol Lactate (Haloperidol Lactate 5 Mg/Ml 1 Ml Vial) 5 mg IV Q4 PRN PRN Reason: Agitation Stop: 04/23/25 13:54 Last Admin: 03/24/25 14:44 Dose: 5 mg Hyoscyamine (Hyoscyamine Sulfate 0.125 Mg Tab) 0.125 mg SL Q4H PRN PRN Reason: Secretions or Pulm Congestion Stop: 04/29/25 09:13 Lorazepam 0.5 mg/ Syringe 0.5 mls @ 2 mls/min IV Q4H PRN PRN Reason: Anxiety/Agitation Stop: 04/25/25 11:29 Last Admin: 03/29/25 12:02 Dose: 2 mls/min Levalbuterol HCl (Levalbuterol Hcl 0.63 Mg/3 Ml Neb) 0.63 mg NEB Q6H PRN; Protocol PRN Reason: Shortness Of Breath Or Wheezing Stop: 04/20/25 13:28 Last Admin: 03/24/25 07:08 Dose: 0.63 mg Melatonin (Melatonin 3 Mg Tab) 3 mg PO HS PRN PRN Reason: Sleep Stop: 04/20/25 11:23 Last Admin: 03/27/25 02:02 Dose: 3 mg Morphine Sulfate (Morphine Sulfate 10 Mg/0.5 Ml Udp) 5 mg PO Q2H PRN PRN Reason: Pain,dyspnea Stop: 04/09/25 11:32 Last Admin: 03/30/25 19:17 Dose: 5 mg Olanzapine (Olanzapine Zydis 5 Mg Orally Dis. Tab) 2.5 mg PO BID PRN PRN Reason: Agitation Stop: 04/25/25 20:59 Ondansetron HCl (Ondansetron Inj 2 Mg/Ml 2 Ml Vial) 4 mg IV Q6H PRN PRN Reason: Nausea Stop: 04/20/25 11:23 Ondansetron HCl (Ondansetron 4 Mg Od Tab) 4 mg SL Q4H PRN PRN Reason: Nausea &/or Vomiting Stop: 04/29/25 09:13 Travoprost (Travoprost Z 0.004% Oph Soln 2.5 Ml Btl) 1 drops OP BID COUNT INCLUDES [facility] Stop: 04/20/25 20:59 Last Admin: 03/31/25 07:47 Dose: 1 drops
[2025-04-01 07:35] VITALS: BP 111/73; PULSE 115
--- NOTE | 2025-04-01 16:05 | Hospitalist Progress Note ---
Date of Service April 01, 2025 Assessment & Plan (1) Sepsis: (2) Acute UTI: (3) Cellulitis: Plan Ms. Barron is an 89 year old woman with past medical history remarkable for PSVT, afib HTN, HLD, COPD CAD, GERD, age related osteoporosis, open angle glaucoma, depression, dementia presented to [facility] ED due to altered mental status and nausea/vomiting. Comfort measures only Appreciate palliative care input and recommendation for comfort measures only Patient has the significant medical conditions as mentioned below Will keep current medications as long as she can take it and hold further blood work and/or escalation of care Remains stable clinically Remains stable and asymptomatic Will continue comfort measures for now Significant medical conditions significant medical conditions are : #Severe sepsis, possible multiple infectious sources #Acute complicated cystitis #RLE cellulitis -Sepsis resolved -Culture data negative -MRSA screen positive -Completed vanc, cefepime, doxy on 03/27 -Plan is Hospice at [facility] -Follow culture data -Follow renal function, vanc levels while on vanc #Afib RVR -HR 120s -History of pAfib. -Very poor candidate for AC. risks of bleeding outweigh stroke reduction benefits -Permissive tachycardia Plan -Resume home cardizem 180mg for RC if able to take -Continue telemetry -Add IV lopressor HR >120 #GOC discussion -03/24 discussed with DIL who makes medical decisions for patient. she is aspirating and risks/benefits were discussed and she was ordered comfort foods. Did not want PEG tube -03/25- D/w DIL again today, explained patient's poor prognosis and multiple active medical issues. DIL is open to hospice discussion. Reached out to palliative care and they will see patient -03/26- Palliative care to evaluate today, appreciate input -03/27- Hospice at [facility] plan. 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 Off O2 today -Biofire neg #HTN -BP remains elevated, increase cardizem back to home dose of 180mg daily due to RVR -Hold lisinopril for now #Hypophosphatemia #Dyslipidemia, goal LDL below 70 continue statin #COPD not on inhalers started mucinex levalbuterol prn DVT ppx heparin sq Dispo PCU DNR.DNI per discussion with son Marci spent a total of 31 minutes coordinating, documenting, and providing care for this patient. This included personally reviewing all current laboratories and imaging studies, medical reconciliation, outpatient chart review and discussion with specialists Admission and Anticipated Discharge Date Admission Date: March 21, 2025 Subjective 03/31/2025 Patient was seen and examined in the medical floor She remains pleasantly confused Conversing reasonably and not in any acute distress 04/01/2025 The patient was seen and examined in medical floor She remains stable and calm and quiet Physical Exam Physical Exam: Lying in bed without any acute distress Constitutional: + ill appearing and average body habitus Eyes: PERRL, conjunctivae normal, anicteric sclerae ENMT: external ear and nose normal, oropharynx normal Neck: trachea midline, no thyromegaly Respiratory: no respiratory distress Auscultation: lungs clear to auscultation bilaterally Cardiovascular: Rate/Rhythm: regular rate and regular rhythm; not tachycardic Heart Sounds: normal S1 and normal S2; no murmur Extremities: no edema Gastrointestinal (Abdomen): Inspection/Auscultation: normal bowel sounds; abdomen not distended Percussion/Palpation: abdomen soft; abdomen nontender Lymphatic: no cervical or axillary lymphadenopathy Results & Data Results & Data Vital Signs (Past 12 Hours) Vital Signs Pulse BP O2 Del Method 04/01/25 07:58 Room Air 04/01/25 07:34 115 H 111/73 Medications Administered Current Inpatient Medications Acetaminophen (Acetaminophen 325 Mg Tab) 650 mg PO Q4H PRN PRN Reason: Pain or Fever Stop: 04/20/25 11:23 Last Admin: 03/26/25 07:54 Dose: 650 mg Atropine Sulfate (Atropine Sulfate 1% Op Soln 5 Ml Btl) 4 drops SL Q1H PRN PRN Reason: Secretions or pulm congestion Stop: 04/29/25 09:13 Diltiazem HCl (Diltiazem Hcl 180 Mg Capcr) 180 mg PO QAM [facility] Stop: 04/25/25 08:59 Last Admin: 04/01/25 07:31 Dose: 180 mg Fluoxetine HCl (Fluoxetine Hcl 20 Mg Cap) 60 mg PO QAM [facility] Stop: 04/21/25 08:59 Last Admin: 04/01/25 07:13 Dose: Not Given Glycopyrrolate (Glycopyrrolate 0.2 Mg/Ml Vial) 0.4 mg IV Q4H PRN PRN Reason: Rattling Secretions or Pulm Congestion Stop: 04/29/25 09:13 Guaifenesin (Guaifenesin 600 Mg Tabcr) 600 mg PO Q12 [facility] Stop: 04/21/25 20:59 Last Admin: 04/01/25 07:13 Dose: Not Given Haloperidol (Haloperidol Oral Soln 2 Mg/Ml) 0.5 mg PO Q4H PRN PRN Reason: Anxiety/Agitation Stop: 04/29/25 09:13 Haloperidol Lactate (Haloperidol Lactate 5 Mg/Ml 1 Ml Vial) 5 mg IV Q4 PRN PRN Reason: Agitation Stop: 04/23/25 13:54 Last Admin: 03/24/25 14:44 Dose: 5 mg Hyoscyamine (Hyoscyamine Sulfate 0.125 Mg Tab) 0.125 mg SL Q4H PRN PRN Reason: Secretions or Pulm Congestion Stop: 04/29/25 09:13 Lorazepam 0.5 mg/ Syringe 0.5 mls @ 2 mls/min IV Q4H PRN PRN Reason: Anxiety/Agitation Stop: 04/25/25 11:29 Last Admin: 03/31/25 17:02 Dose: 2 mls/min Levalbuterol HCl (Levalbuterol Hcl 0.63 Mg/3 Ml Neb) 0.63 mg NEB Q6H PRN; Protocol PRN Reason: Shortness Of Breath Or Wheezing Stop: 04/20/25 13:28 Last Admin: 03/24/25 07:08 Dose: 0.63 mg Melatonin (Melatonin 3 Mg Tab) 3 mg PO HS PRN PRN Reason: Sleep Stop: 04/20/25 11:23 Last Admin: 03/27/25 02:02 Dose: 3 mg Morphine Sulfate (Morphine Sulfate 10 Mg/0.5 Ml Udp) 5 mg PO Q2H PRN PRN Reason: Pain,dyspnea Stop: 04/09/25 11:32 Last Admin: 03/30/25 19:17 Dose: 5 mg Olanzapine (Olanzapine Zydis 5 Mg Orally Dis. Tab) 2.5 mg PO BID PRN PRN Reason: Agitation Stop: 04/25/25 20:59 Ondansetron HCl (Ondansetron Inj 2 Mg/Ml 2 Ml Vial) 4 mg IV Q6H PRN PRN Reason: Nausea Stop: 04/20/25 11:23 Ondansetron HCl (Ondansetron 4 Mg Od Tab) 4 mg SL Q4H PRN PRN Reason: Nausea &/or Vomiting Stop: 04/29/25 09:13 Travoprost (Travoprost Z 0.004% Oph Soln 2.5 Ml Btl) 1 drops OP BID [facility] Stop: 04/20/25 20:59 Last Admin: 04/01/25 07:27 Dose: 1 drops
--- NOTE | 2025-04-02 12:46 | Palliative Care Progress Note ---
Date of Service April 02, 2025 Assessment & Plan (1) Agitation due to dementia: (2) Altered mental status: (3) Palliative care by specialist: Plan: Palliative care will continue to follow for ongoing EOL pt care and family support. (4) Need for comfort care: Plan: Comfort plan of care parameters: 1. Patient/Family want hospice added to their care. 2. NO rehab/PT/OT 3. Strictly End of Life care only 4. NO escalation of care: do not increase oxygen, escalate therapies, etc. The focus is on comfort through end of life, assure this is accomplished with aggressive symptom management (i.e. relief of dyspnea, pain, etc.) 5. NO return to hospital 6. NO labs, imaging, surgery 7. Oral intake as desired for comfort and pleasure: NO dietary restriction, Allow permissive aspiration, do not withhold food or drink for concern of aspiration and allow PO for pleasure and comfort. 8. If difficulty urinating/commode/bedpan, ok to place Hernandez catheter for comfort/hygiene/skin protection AND/OR Continue Hernandez catheter for comfort/hygiene/skin protection 9. NO: calorie counts, artificial nutrition, feeding tubes or IV fluids EOL Symptom manamgement: Pain/dyspnea/tachypnea morphine 5mg PO PRN Q2H Consider titratable morphine drip if pt requires >3 PRN doses in under two consecutive hours. Nausea/vomitting zofran 4mg IVP q4h PRN Agitation ativan 0.5mg IVP q4h PRN Hyperactive delirium haldol 5mg IVP q6h PRN Secretions - if repositioning not effective robinul 0.4mg IV q4h PRN atropine SL 3 drops Q1h PRN Nursing care: Discontinue all medications not directed towards comfort. Detether pt from IV tubing, monitor cables, and check vitals once per shift. Please continue HFNC and titrate down as able for patient comfort. Use medications above PRN for dyspnea/tachypnea and do not increase oxygen once titrated down. Assess q1h for pain/dyspnea and treat accordingly. 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 She does not currently fit criteria for GIP hospice, pending discharge to SNF with hospice. Admission and Anticipated Discharge Date Admission Date: March 21, 2025 Subjective Assessed pt at bedside, she was transitioned to AUXILIARY EQUIPMENT TENDER on 03/26/25. She was sleeping soundly; I did not attempt to awaken in concert with comfort directed care. VSS. Respiratory effort normal, rate 14/min with no periods of apnea. No visitors at bedside. Review of Systems Review of Systems: Unobtainable due to cognitive status Physical Exam Constitutional: + ill appearing, + cachectic, comfortabl e and + lethargic Eyes: PERRL, conjunctivae normal, anicteric sclerae Neck: trachea midline, no thyromegaly Respiratory: normal respiratory effort, lungs clear to auscultation Gastrointestinal (Abdomen): normal bowel sounds, soft, nontender, no hepatosplenomegaly Skin: no rashes, warm and dry + turgor decreased and + pallor Results & Data Vital Signs (Past 12 Hours) Vital Signs O2 Del Method 04/02/25 09:00 Room Air Laboratory Results No further labs or diagnostics in concert with comfort directed care. Diagnostic Findings No further labs or diagnostics in concert with comfort directed care. Medications Administered Current Inpatient Medications Acetaminophen (Acetaminophen 325 Mg Tab) 650 mg PO Q4H PRN PRN Reason: Pain or Fever Stop: 04/20/25 11:23 Last Admin: 03/26/25 07:54 Dose: 650 mg Atropine Sulfate (Atropine Sulfate 1% Op Soln 5 Ml Btl) 4 drops SL Q1H PRN PRN Reason: Secretions or pulm congestion Stop: 04/29/25 09:13 Diltiazem HCl (Diltiazem Hcl 180 Mg Capcr) 180 mg PO QAM [facility] Stop: 04/25/25 08:59 Last Admin: 04/02/25 08:31 Dose: Not Given Fluoxetine HCl (Fluoxetine Hcl 20 Mg Cap) 60 mg PO QAM [facility] Stop: 04/21/25 08:59 Last Admin: 04/02/25 08:21 Dose: Not Given Glycopyrrolate (Glycopyrrolate 0.2 Mg/Ml Vial) 0.4 mg IV Q4H PRN PRN Reason: Rattling Secretions or Pulm Congestion Stop: 04/29/25 09:13 Guaifenesin (Guaifenesin 600 Mg Tabcr) 600 mg PO Q12 [facility] Stop: 04/21/25 20:59 Last Admin: 04/02/25 08:22 Dose: Not Given Haloperidol (Haloperidol Oral Soln 2 Mg/Ml) 0.5 mg PO Q4H PRN PRN Reason: Anxiety/Agitation Stop: 04/29/25 09:13 Haloperidol Lactate (Haloperidol Lactate 5 Mg/Ml 1 Ml Vial) 5 mg IV Q4 PRN PRN Reason: Agitation Stop: 04/23/25 13:54 Last Admin: 03/24/25 14:44 Dose: 5 mg Hyoscyamine (Hyoscyamine Sulfate 0.125 Mg Tab) 0.125 mg SL Q4H PRN PRN Reason: Secretions or Pulm Congestion Stop: 04/29/25 09:13 Lorazepam 0.5 mg/ Syringe 0.5 mls @ 2 mls/min IV Q4H PRN PRN Reason: Anxiety/Agitation Stop: 04/25/25 11:29 Last Admin: 04/01/25 17:47 Dose: 2 mls/min Levalbuterol HCl (Levalbuterol Hcl 0.63 Mg/3 Ml Neb) 0.63 mg NEB Q6H PRN; Protocol PRN Reason: Shortness Of Breath Or Wheezing Stop: 04/20/25 13:28 Last Admin: 03/24/25 07:08 Dose: 0.63 mg Melatonin (Melatonin 3 Mg Tab) 3 mg PO HS PRN PRN Reason: Sleep Stop: 04/20/25 11:23 Last Admin: 03/27/25 02:02 Dose: 3 mg Morphine Sulfate (Morphine Sulfate 10 Mg/0.5 Ml Udp) 5 mg PO Q2H PRN PRN Reason: Pain,dyspnea Stop: 04/09/25 11:32 Last Admin: 03/30/25 19:17 Dose: 5 mg Olanzapine (Olanzapine Zydis 5 Mg Orally Dis. Tab) 2.5 mg PO BID PRN PRN Reason: Agitation Stop: 04/25/25 20:59 Ondansetron HCl (Ondansetron Inj 2 Mg/Ml 2 Ml Vial) 4 mg IV Q6H PRN PRN Reason: Nausea Stop: 04/20/25 11:23 Ondansetron HCl (Ondansetron 4 Mg Od Tab) 4 mg SL Q4H PRN PRN Reason: Nausea &/or Vomiting Stop: 04/29/25 09:13 Travoprost (Travoprost Z 0.004% Oph Soln 2.5 Ml Btl) 1 drops OP BID [facility] Stop: 04/20/25 20:59 Last Admin: 04/02/25 10:10 Dose: 1 drops PG Care Time/CCT Total # of Minutes Spent Total Time Spent with Patient: Total time spent is greater than 50% in coordination of care (as documented) at patient's floor/unit and/or counseling patient: Coding [place] [address] SUB INP/OBS CARE 05/09MIN Patient Type Established History Problem Focused Exam Problem Focused Medical Decision Making Low Complexity Diagnoses Agitation due to dementia F03.911 Altered mental status R41.82 Palliative care by specialist Z51.5 Need for comfort care
--- NOTE | 2025-04-02 13:12 | Hospitalist Progress Note ---
Date of Service April 02, 2025 Assessment & Plan (1) Sepsis: (2) Acute UTI: (3) Cellulitis: Plan Ms. Barron is an 89 year old woman with past medical history remarkable for PSVT, afib HTN, HLD, COPD CAD, GERD, age related osteoporosis, open angle glaucoma, depression, dementia presented to [facility] ED due to altered mental status and nausea/vomiting. Comfort measures only Appreciate palliative care input and recommendation for comfort measures only Patient has the significant medical conditions as mentioned below Will keep current medications as long as she can take it and hold further blood work and/or escalation of care Remains stable clinically Remains stable and asymptomatic Will continue comfort measures for now She remains medically stable without any acute distress She will be discharged to [facility] with hospice care Significant medical conditions significant medical conditions are : #Severe sepsis, possible multiple infectious sources #Acute complicated cystitis #RLE cellulitis -Sepsis resolved -Culture data negative -MRSA screen positive -Completed vanc, cefepime, doxy on 03/27 -Plan is Hospice at [facility] -Follow culture data -Follow renal function, vanc levels while on vanc #Afib RVR -HR 120s -History of pAfib. -Very poor candidate for AC. risks of bleeding outweigh stroke reduction benefits -Permissive tachycardia Plan -Resume home cardizem 180mg for RC if able to take -Continue telemetry -Add IV lopressor HR >120 #GOC discussion -03/24 discussed with YADIRA who makes medical decisions for patient. she is aspirating and risks/benefits were discussed and she was ordered comfort foods. Did not want PEG tube -03/25- D/w DIL again today, explained patient's poor prognosis and multiple active medical issues. DIL is open to hospice discussion. Reached out to palliative care and they will see patient -03/26- Palliative care to evaluate today, appreciate input -03/27- Hospice at [facility] plan. 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 Off O2 today -Biofire neg #HTN -BP remains elevated, increase cardizem back to home dose of 180mg daily due to RVR -Hold lisinopril for now #Hypophosphatemia #Dyslipidemia, goal LDL below 70 continue statin #COPD not on inhalers started mucinex levalbuterol prn DVT ppx heparin sq Dispo PCU DNR.DNI per discussion with son Marci spent a total of 31 minutes coordinating, documenting, and providing care for this patient. This included personally reviewing all current laboratories and imaging studies, medical reconciliation, outpatient chart review and discussion with specialists Admission and Anticipated Discharge Date Admission Date: March 21, 2025 Subjective 03/31/2025 Patient was seen and examined in the medical floor She remains pleasantly confused Conversing reasonably and not in any acute distress 04/01/2025 The patient was seen and examined in medical floor She remains stable and calm and quiet 04/02/2025 Patient was seen and examined in medical floor She remains stable without any distress at rest and denies any significant symptoms She will be going to the facility with hospice care hospice Physical Exam Physical Exam: Lying in bed without any acute distress Constitutional: + ill appearing and average body habitus Eyes: PERRL, conjunctivae normal, anicteric sclerae ENMT: external ear and nose normal, oropharynx normal Neck: trachea midline, no thyromegaly Respiratory: no respiratory distress Auscultation: lungs clear to auscultation bilaterally Cardiovascular: Rate/Rhythm: regular rate and regular rhythm; not tachycardic Heart Sounds: normal S1 and normal S2; no murmur Extremities: no edema Gastrointestinal (Abdomen): Inspection/Auscultation: normal bowel sounds; abdomen not distended Percussion/Palpation: abdomen soft; abdomen nontender Lymphatic: no cervical or axillary lymphadenopathy Results & Data Results & Data Vital Signs (Past 12 Hours) Vital Signs O2 Del Method 04/02/25 09:00 Room Air Medications Administered Current Inpatient Medications Acetaminophen (Acetaminophen 325 Mg Tab) 650 mg PO Q4H PRN PRN Reason: Pain or Fever Stop: 04/20/25 11:23 Last Admin: 03/26/25 07:54 Dose: 650 mg Atropine Sulfate (Atropine Sulfate 1% Op Soln 5 Ml Btl) 4 drops SL Q1H PRN PRN Reason: Secretions or pulm congestion Stop: 04/29/25 09:13 Diltiazem HCl (Diltiazem Hcl 180 Mg Capcr) 180 mg PO QAM FARHANA Stop: 04/25/25 08:59 Last Admin: 04/02/25 08:31 Dose: Not Given Fluoxetine HCl (Fluoxetine Hcl 20 Mg Cap) 60 mg PO QAM FARHANA Stop: 04/21/25 08:59 Last Admin: 04/02/25 08:21 Dose: Not Given Glycopyrrolate (Glycopyrrolate 0.2 Mg/Ml Vial) 0.4 mg IV Q4H PRN PRN Reason: Rattling Secretions or Pulm Congestion Stop: 04/29/25 09:13 Guaifenesin (Guaifenesin 600 Mg Tabcr) 600 mg PO Q12 FARHANA Stop: 04/21/25 20:59 Last Admin: 04/02/25 08:22 Dose: Not Given Haloperidol (Haloperidol Oral Soln 2 Mg/Ml) 0.5 mg PO Q4H PRN PRN Reason: Anxiety/Agitation Stop: 04/29/25 09:13 Haloperidol Lactate (Haloperidol Lactate 5 Mg/Ml 1 Ml Vial) 5 mg IV Q4 PRN PRN Reason: Agitation Stop: 04/23/25 13:54 Last Admin: 03/24/25 14:44 Dose: 5 mg Hyoscyamine (Hyoscyamine Sulfate 0.125 Mg Tab) 0.125 mg SL Q4H PRN PRN Reason: Secretions or Pulm Congestion Stop: 04/29/25 09:13 Lorazepam 0.5 mg/ Syringe 0.5 mls @ 2 mls/min IV Q4H PRN PRN Reason: Anxiety/Agitation Stop: 04/25/25 11:29 Last Admin: 04/01/25 17:47 Dose: 2 mls/min Levalbuterol HCl (Levalbuterol Hcl 0.63 Mg/3 Ml Neb) 0.63 mg NEB Q6H PRN; Protocol PRN Reason: Shortness Of Breath Or Wheezing Stop: 04/20/25 13:28 Last Admin: 03/24/25 07:08 Dose: 0.63 mg Melatonin (Melatonin 3 Mg Tab) 3 mg PO HS PRN PRN Reason: Sleep Stop: 04/20/25 11:23 Last Admin: 03/27/25 02:02 Dose: 3 mg Morphine Sulfate (Morphine Sulfate 10 Mg/0.5 Ml Udp) 5 mg PO Q2H PRN PRN Reason: Pain,dyspnea Stop: 04/09/25 11:32 Last Admin: 03/30/25 19:17 Dose: 5 mg Olanzapine (Olanzapine Zydis 5 Mg Orally Dis. Tab) 2.5 mg PO BID PRN PRN Reason: Agitation Stop: 04/25/25 20:59 Ondansetron HCl (Ondansetron Inj 2 Mg/Ml 2 Ml Vial) 4 mg IV Q6H PRN PRN Reason: Nausea Stop: 04/20/25 11:23 Ondansetron HCl (Ondansetron 4 Mg Od Tab) 4 mg SL Q4H PRN PRN Reason: Nausea &/or Vomiting Stop: 04/29/25 09:13 Travoprost (Travoprost Z 0.004% Oph Soln 2.5 Ml Btl) 1 drops OP BID FARHANA Stop: 04/20/25 20:59 Last Admin: 04/02/25 10:10 Dose: 1 drops
--- NOTE | 2025-04-03 07:42 | Discharge Summary ---
Date of Service April 03, 2025 Admission HPI Per Admitting Provider Ms. Barron is an 89 year old woman with past medical history remarkable for PSVT, HTN, HLD, COPD CAD, GERd, age related osteoporosis, open angle glaucoma, depression, dementia presented to [facility] ED due to altered mental status and nausea/vomiting. Patient is alert to self. Per [facility] documentation, patient is incontinent, requires assistance with bathing, dressing, transfers, toileting, and eating, however reportedly ambulates independently. Though unable to reach nursing at [facility], the [id number] was able to report her understanding of what prompted EMS call. Virginie (YADIRA) reports that she received a call two days prior about a fall, in which no injuries were sustained reportedly and patient was otherwise at baseline. It seems that this morning, the patient was abruptly nauseated and vomited--unable to keep things down like Pedialyte or chopra, prompting presentation to ED. Virginie does note that patient always has issues with infection of her legs because "she picks and scratches." Patient awakens to verbal stimuli (hard of hearing). Patient will respond to name. She does not know where she is or the year, but is pleasant and kind. She denies any pain. She denies active nausea. She follows some commands, but requires more prompting. This is improved in comparison to prior report of initial arrival to ED multiple bedside visits were made to ensure stability In the ED, vitals were notable for BP of 70s to low 100s, HR of 100s-120s, and O2 sat of mid 90s on 2L NC febrile to 39.2 Imaging reviewed: Head CT did not show any acute intracranial processes, noted some mild mucosal thickening of ethmoid air cells. CT ABP revealed some small cycts on left kidney, mild bladder wall thickening, left adnexal likely benign adenexal lesion, fluid filled distal esophagus, small hiatal hernia, colonic fecal retention, possible enteritis or ileus CTA chest with mucous plugging EKG with appears regular though reports reads a fib would contest ED interventions: s/p 3 L NS per sepsis protocol, vanc, ctx and doxy NE ordered but not started Patient to be admitted to PCU for further evaluation and management of severe sepsis 2/2 possible cellulitis, cystitis, and questionable ileus Admission Exam Per Admitting Provider Physical Exam: GENERAL APPEARANCE: AxOx1, elderly female, lethargic HEENT: NC, AT. MMM. EOMI, clear conjunctiva, oropharynx clear. NECK: Supple without lymphadenopathy. No stiffness or restricted ROM. HEART: tachycardic, sounds regular, no murmur/regurg LUNGS: CTAB, moving air well. No crackles or wheezes are heard. ABDOMEN: firm protuberant, nontender BACK: No CVAT, no obvious deformity. EXTREMITIES: Without cyanosis, clubbing or edema. NEUROLOGICAL: Grossly nonfocal. Alert and oriented, moving all 4 extremities. CN not formally tested but appear grossly intact. Skin: erythematous RLE with slight increase in swelling compared to LLE Principal Diagnosis Dementia with agitation, change in mental status, afebrile with RVR, sepsis- treated with antibiotic Discharge Exam Lying in bed without any acute distress Constitutional + ill appearing and average body habitus Eyes PERRL, conjunctivae normal, anicteric sclerae ENMT external ear and nose normal, oropharynx normal Neck trachea midline, no thyromegaly Respiratory no respiratory distress Auscultation: lungs clear to auscultation bilaterally Cardiovascular Rate/Rhythm: regular rate and regular rhythm; not tachycardic Heart Sounds: normal S1 and normal S2; no murmur Extremities: no edema Gastrointestinal (Abdomen) Inspection/Auscultation: normal bowel sounds; abdomen not distended Percussion/Palpation: abdomen soft; abdomen nontender Lymphatic no cervical or axillary lymphadenopathy Discharge Data Allergies Allergy/AdvReac Type Severity Reaction Status Date / Time No Known Drug Allergies Allergy Unknown . Verified 10/31/22 09:06 Consultations 03/21/25 10:23 ED Decision to Admit Stat 03/25/25 07:29 Consult Palliative Care Routine Ordered Studies 03/21/25 08:00 CT head/brain wo con Stat 03/21/25 08:04 CT abd pelvis IV con only Stat 03/21/25 08:40 CT angio chest PE protocol Stat US venous doppler LE BI Stat Hospital Course (1) Sepsis: (2) Acute UTI: (3) Cellulitis: Plan Ms. Barron is an 89 year old woman with past medical history remarkable for PSVT, afib HTN, HLD, COPD CAD, GERD, age related osteoporosis, open angle glaucoma, depression, dementia presented to [facility] ED due to altered mental status and nausea/vomiting. Comfort measures only Appreciate palliative care input and recommendation for comfort measures only Patient has the significant medical conditions as mentioned below Will keep current medications as long as she can take it and hold further blood work and/or escalation of care Remains stable clinically Remains stable and asymptomatic Will continue comfort measures for now She remains medically stable without any acute distress She will be discharged to [facility] with hospice care Significant medical conditions significant medical conditions are : #Severe sepsis, possible multiple infectious sources #Acute complicated cystitis #RLE cellulitis -Sepsis resolved -Culture data negative -MRSA screen positive -Completed vanc, cefepime, doxy on 03/27 -Plan is Hospice at [facility] -Follow culture data -Follow renal function, vanc levels while on vanc #Afib RVR -HR 120s -History of pAfib. -Very poor candidate for AC. risks of bleeding outweigh stroke reduction benefits -Permissive tachycardia Plan -Resume home cardizem 180mg for RC if able to take -Continue telemetry -Add IV lopressor HR >120 #GOC discussion -03/24 discussed with DIL who makes medical decisions for patient. she is aspirating and risks/benefits were discussed and she was ordered comfort foods. Did not want PEG tube -03/25- D/w DIL again today, explained patient's poor prognosis and multiple active medical issues. DIL is open to hospice discussion. Reached out to palliative care and they will see patient -03/26- Palliative care to evaluate today, appreciate input -03/27- Hospice at [facility] plan. 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 Off O2 today -Biofire neg #HTN -BP remains elevated, increase cardizem back to home dose of 180mg daily due to RVR -Hold lisinopril for now #Hypophosphatemia #Dyslipidemia, goal LDL below 70 continue statin #COPD not on inhalers started mucinex levalbuterol prn DVT ppx heparin sq Dispo PCU DNR.DNI per discussion with son I spent a total of 31 minutes coordinating, documenting, and providing care for this patient. This included personally reviewing all current laboratories and imaging studies, medical reconciliation, outpatient chart review and discussion with specialists Total Time Total Time Spent Total Time Spent (In Minutes): 35 minutes Discharge Plan Discharge Items Patient Disposition: Hospice - Medical Facility Reason For Visit: AMS Discharge Diagnosis: Dementia with agitation, change in mental status, afebrile with RVR, sepsis- treated with antibiotic Condition on Discharge: Fair Activity: As commented below Activity Comment: As per hospice care Non-emergency contact: Primary Care Provider Call non-emergency contact if: you have any medication questions and your symptoms worsen Follow-up/Referrals: Yani Blake CRNP [Primary Care Provider] - Diet: Regular Diet Texture: Pureed (blended smooth) Diet Comment: Liquid consistency and mildly thick (nectar) Addtl Attending Provider Instructions: Please take precautions to avoid falls Advised to take medication as long as she can and further recommendation as per hospice care Transition to comfort care as per palliative recommendation Pending Studies at Discharge: No Stand-Alone Forms: [employer] Skilled Items Patient informed of condition?: Yes DNR: Yes Discharge Level of Care: Other Communicable Disease: No Discharge Prognosis: Stable Lines: None Urinary Catheter: Yes Medications and DC Order Prescriptions: New hyoscyamine sulfate [Levsin] 0.125 mg Tablet 0.125 mg sublingual Q4H PRN (Reason: dyspepsia) Qty: 20 0RF atropine 1 % Drops 4 drp sublingual Q1H PRN (Reason: secretions) Qty: 1 0RF ondansetron 4 mg Tablet,Disintegrating 4 mg sublingual Q4H PRN (Reason: nausea and vomiting) Qty: 20 0RF haloperidol lactate 2 mg/mL Concentrate 0.5 mg PO Q4H PRN (Reason: agitation) Qty: 30 0RF olanzapine 5 mg Tablet,Disintegrating 2.5 mg PO BID PRN (Reason: agitation) Qty: 20 0RF morphine 20 mg/5 mL (4 mg/mL) solution 4 mg PO Q2H PRN (Reason: pain) Qty: 50 0RF Continued fluoxetine 40 mg Capsule 60 mg PO QAM diltiazem HCl 180 mg Capsule,Extended Release 24 Hr 180 mg PO QAM travoprost 0.004 % Drops 1 drp OPHTHALMIC (EYE) BID dorzolamide-timolol 22.3-6.8 mg/mL Drops 1 drp OPHTHALMIC (EYE) BID lisinopril 2.5 mg Tablet 2.5 mg PO QAM rosuvastatin 20 mg Tablet 20 mg PO QPM acetaminophen [Tylenol] 325 mg Tablet 650 mg PO Q4H PRN (Reason: pain/temp) mineral oil-hydrophil petrolat Ointment 1 applic TOPICAL BID fluocinonide 0.05 % Cream 1 applic TOPICAL BID PRN (Reason: skin issues) Vyzulta 0.024 % drops 1 drp OPB HS Discontinued alendronate 70 mg Tablet 70 mg PO WK Rx Instructions: Saturday naproxen 250 mg Tablet 250 mg PO BID PRN (Reason: Inflammation) mirtazapine 15 mg tablet 15 mg PO HS Silver Gel Gel 1 ea TOPICAL DAILY Discharge Orders: Discharge Order (Routine); Ordered 04/02/25 Ordered By: Rigoberto Stiles/Other Patient Handouts: What Is Palliative Care Admission Data Admit Date/Time: 03/21/25 11:24 Attending Provider: Rigoberto Schaffer Admit Provider: Joana Chopra Primary Care Provider: Yani Blake Other Providers: Joana Chopra; Miladys Hutton; Laura Cage; [id number],CAPPT; [facility]; Isidro Lane Other Interventions: Discharge Summary Assessment (RN) Last Done: 04/02/25 14:57
== END 2025-04-02 17:55 | disposition hospice, inpatient (51) | DRG 871 ==
LOC: ED 07:45 → SUATTDRO 11:24 → EDINP 11:24 → 1E 12:29 → 2S 03-23 06:50 → 3W 03-27 12:39
DX: I25.10 Atherosclerotic heart disease of native coronary artery without angina pectoris; Z66 Do not resuscitate; I50.31 Acute diastolic (congestive) heart failure; L03.115 Cellulitis of right lower limb; A41.9 Sepsis, unspecified organism; I47.19 Other supraventricular tachycardia; K21.9 Gastro-esophageal reflux disease without esophagitis; R65.20 Severe sepsis without septic shock; H40.10X0 Unspecified open-angle glaucoma, stage unspecified; N30.00 Acute cystitis without hematuria; F03.911 Unspecified dementia, unspecified severity, with agitation; E78.5 Hyperlipidemia, unspecified; J44.9 Chronic obstructive pulmonary disease, unspecified; I11.0 Hypertensive heart disease with heart failure; M81.0 Age-related osteoporosis without current pathological fracture; Z51.5 Encounter for palliative care; E83.39 Other disorders of phosphorus metabolism